=== PATIENT | female | born 1945 | race Two or more races ===

== ENCOUNTER 2023-08-21 12:45 | Outpatient (OUT) | payer MEDICARE, MEDICAID, SELFPAY ==
[2023-08-21 13:27] LABS: Bilirubin Urine NEGATIVE (NEGATIVE); Blood Urine TRACE-I (NEGATIVE); Clarity Urine CLEAR (CLEAR); Color Urine LT. YELLOW (YELLOW); Glucose Urine UA NEGATIVE (NEGATIVE); Ketones Urine NEGATIVE (NEGATIVE); Leukocyte Esterase Urine NEGATIVE (NEGATIVE); Nitrite Urine NEGATIVE (NEGATIVE); Protein Urine NEGATIVE (NEG/TRACE)
[2023-08-21 13:32] LABS: Hemoglobin 12.3 g/dL (12.0-16.0); Mean Corpuscular HGB Conc 33.2 g/dL (29.9-35.2); Mean Corpuscular Hemoglobin 32.1 pg (26.7-34.0); Mean Corpuscular Volume 96.6 fL (81.0-99.0); Platelet Count 307 10^3/uL (150-450); Red Blood Count 3.83 10^6/uL (4.20-5.40); Red Cell Distribution Width 12.8 % (11.0-15.0)
[2023-08-21 13:50] LABS: Bacteria Urine NONE SEEN #/HPF (NONE SEEN); Mucus Urine TRACE (NONE SEEN); RBC Urine 0-2 #/HPF (0-2); Squamous Epithelial Cell Urine RARE #/LPF (NONE/RARE); WBC Urine NONE SEEN #/HPF (NONE SEEN)
[2023-08-21 13:51] LABS: Cast Seen? NONE SEEN #/LPF (NONE SEEN); Crystals Seen? None Seen #/HPF (None Seen)
[2023-08-21 14:57] LABS: Creatinine Urine Random 98.94 mg/dL (20.00-300.00); Protein Creatinine Ratio Urine 0.12
[2023-08-21 15:04] LABS: Albumin Level 3.5 g/dL (3.4-5.0); Anion Gap 15.3; BUN Creatinine Ratio 15.9; Calcium 9.3 mg/dL (8.5-10.1); Carbon Dioxide 25.6 mmol/L (21.0-32.0); Chloride 101 mmol/L (98-107); Estimated GFR (African America 35 (>=60); Estimated GFR (Non-African Ame 29 (>=60); Glucose 113 mg/dL (74-106); Magnesium 2.3 mg/dL (1.8-2.4); Phosphorus 3.6 mg/dL (2.6-4.7); Potassium 3.9 mmol/L (3.5-5.1); Sodium 138 mmol/L (136-145); Uric Acid 9.2 mg/dL (2.6-6.0)
[2023-08-22 13:09] LABS: PTH, Intact 76 pg/mL (15-65)
== END 2023-08-21 12:46 | disposition home or self-care (01) ==
LOC: LAB 12:53
PROVIDERS: PCP Family Medicine; Visit Provider Internal Medicine
DX: I12.9 Hypertensive chronic kidney disease with stage 1 through stage 4 chronic kidney disease, or unspecified chronic kidney disease (principal); N18.30 Chronic kidney disease, stage 3 unspecified; E11.22 Type 2 diabetes mellitus with diabetic chronic kidney disease; E79.0 Hyperuricemia without signs of inflammatory arthritis and tophaceous disease; E55.9 Vitamin D deficiency, unspecified; R31.9 Hematuria, unspecified; N25.81 Secondary hyperparathyroidism of renal origin
CPT/HCPCS: 36415; 80069; 81001; 82306; 82570; 83735; 83970; 84156; 84550; 85027

== ENCOUNTER 2024-04-20 11:58 | Outpatient (OUT) | payer MEDICARE, MEDICAID, SELFPAY ==
--- OUTSIDE RECORDS SUMMARY | 2024-04-20 12:18 | XMS_ITS | CCD ---
Author Organization [facility] Inform ion [facility] Care Team Providers Care Service Desk Director Name Role Phone Emir, Felicitas Unavailable Trevor Bary Unavailable EMIR, FELICITAS Admitting Unavailable EMIR, FELICITAS Attending Unavailable PETZNICK, DR VEGA Primary Care Unavailable EMIR, FELICITAS Consulting Unavailable EMIR, FELICITAS Admitting Unavailable EMIR, FELICITAS Attending Unavailable PETZNICK, DR VEGA Primary Care Unavailable EMIR, FELICITAS Consulting Unavailable PETZNICK, RADHA Admitting Unavailable PETZNICK, RADHA Attending Unavailable PETZNICK, DR VEGA Primary Care Unavailable PETZNICK, DR VEGA Consulting Unavailable Petznick Ashlie ALVA Unavailable [phone] Ashlie Melgar DO Primary Care Provider Ashlie Melgar DO Unavailable ASHLIE MELGAR Attending Unavailable ASHLIE MELGAR Referring Unavailable ASHLIE MELGAR Attending Unavailable Allergies Allergy Classification Reported Allergen(s) Allergy Type Date of Onset Reaction(s) Facility (7 sources) Phenytoin Drug Allergy 02-28-2023 anaphylaxis [facility] Other (2 sources) Phenytoin Drug Allergy 02-28-2023 [facility] Medications Current Medications Medication Drug Class(es) Dates Sig (Normalized) Sig (Original) acetaminophen 325 mg oral tablet (8 sources) Start: 08-26-2023 take 1 tablet by mouth every six hours Acetaminophen (Tylenol) 325 mg tablet Active 325 MG PO Every 6 hours August 26, 2023 12:00am [id number] 200 actuat albuterol 0.09 mg/actuat metered dose inhaler (2 sources) beta2-Adrenergic Agonist Start: 02-28-2023 take 2 puff(s) by inhalation every six hours albuterol HFA 90 mcg/act inhaler Indications: Simple chronic bronchitis (CMS/HCC) Inhale 2 puffs every 6 (six) hours. 18 g 02/28/2023 Active allopurinol 100 mg oral tablet (10 sources) Xanthine Oxidase Inhibitor Start: 08-26-2023 take 100 mg by mouth once daily Allopurinol Active 100 MG PO Daily August 26, 2023 12:00am take 1 tablet by mouth once steffi y Allopurinol 100 MG TAKE 1 TABLET BY MOUTH EVERY DAY for 90 Active ASA 81 mg (5 sources) take 1 tablet by mouth once steffi y ASA 81 mg 1 tab Oral Daily for 90 day(s) Active ascorbic acid 113 mg / coppe r gluconate 0.4 mg / docosahexaenoic acid 87.5 mg / eicosapentaenoic acid 163 mg / lutein 2.5 mg / tocopherol acetate 100 unt / zeaxanthin 0.5 mg / zinc oxide 17.4 mg oral capsule (2 sources) Vitamin C aspirin 81 mg delayed release oral tablet (3 sources) Platelet Aggregation Inhibitor, Nonsteroidal Anti-inflammatory Drug Start: 08-26-2023 aspirin 81 MG EC tablet Daily 08/26/2023 Active Blood Glucose Monitoring Suppl (IceWEB) w/Device kit (2 sources) Start: 03-31-2024 Blood Glucose Monitoring Suppl (IceWEB) w/Device kit Indications: Type 2 diabetes mellitus with stage 4 chronic kidney disease, without long-term current use of insulin ([facility]) Fsbs daily 1 kit 03/31/2024 Active ergocalciferol 1.25 mg oral capsule (6 sources) Provitamin D2 Compound Start: 08-26-2023 take 1250 ug by mouth every week Ergocalciferol (Vitamin D2) Active 1250 MCG PO every week August 26, 2023 12:00am take 1 capsule by mouth every we ek Ergocalciferol 23411 UNIT 1 capsule Orally Q week for 90 day(s) Active furosemide 20 mg oral tablet (11 sources) Loop Diuretic Start: 08-26-2023 take 40 mg by mouth twice daily Furosemide Active 40 MG PO Twice daily August 26, 2023 12:00am Start: 02-28-2023 take 2 tablets by mo ut in the morning furosemide (Lasix) 20 MG tablet Indications: Chronic diastolic heart failure (CMS/HCC) Take 2 tablets (40 mg) by mouth in the morning and 2 tablets (40 mg) before bedtime. 02/28/2023 Active take 2 tablets by mo [facility] twice daily Furosemide 20 MG TAKE 2 TABLETS BY MOUTH TWICE A DAY for 90 Active take 2 tablets by mo [facility] once daily in the morning, then take 1 tablet by mouth in the evening Furosemide 20 MG TAKE 2 TABLETS BY MOUTH EVERY MORNING AND 1 TABLET IN THE EVENING for 90 Active linagliptin 5 mg oral tablet (2 sources) Dipeptidyl Peptidase 4 Inhibitor take 1 tablet by mouth every twenty-four hours lisinopril 20 mg oral tablet (8 sources) Angiotensin Converting Enzyme Inhibitor Start: 10-21-19 take 1 tablet by mouth once daily lisinopril 20 MG tablet Indications: Essential hypertension (CMS/HCC) TAKE 1 TABLET BY MOUTH EVERY DAY 90 tablet 1 10/21/2023 Active Start: 08-26-2023 take 20 mg by mouth once daily Lisinopril Active 20 MG PO Daily August 26, 2023 12:00am Start: 04-17-2016 take 1 tablet by hayley every twenty-four hours Lisinopril 20 mg 1 tablet Orally Once a day Mar, Active pravastatin sodium 40 mg oral tablet (8 sources) HMG-CoA Reductase Inhibitor Start: 10-21-2023 take 1 tablet by mouth once daily pravastatin (Pravachol) 40 MG tablet Indications: Pure hypercholesterolemia (CMS/HCC) TAKE 1 TABLET BY MOUTH EVERY DAY 90 tablet 1 10/21/2023 Active Start: 08-26-2023 take 40 mg by mouth once daily Pravastatin Active 40 MG PO Daily August 26, 2023 12:00am take 1 tablet by hayley th every twenty-four hours Pravastatin Sodium 40 MG 1 tablet Orally Once a day Active 0.25 mg, 0.5 mg dose 1.5 ml semaglutide 1.34 mg/ml pen injector (3 sources) Start: 08-26-2023 Semaglutide (O zempic) 0.25 mg or 0.5 mg(2 mg/1.5 mL) pen injector Active MG SUBCUT As Directed August 26, 2023 12:00am ) Ozempic (0.25 or 0.5 MG/DOSE) 2 MG/1.5ML as directed Subcutaneous Active Semaglutide,0.25 or 0.5MG/DOS, (Ozempic, 0.25 or 0.5 MG/DOSE,) 2 MG/3ML solution pen-injector (2 sources) Start: 06-21-2023 End: 06-20-2024 Semaglutide,0.25 or 0.5MG/DOS, (Ozempic, 0.25 or 0.5 MG/DOSE,) 2 MG/3ML solution pen-injector Indications: 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) Inject 0.5 mg under the skin every 7 (seven) days 9 mL 3 06/21/2023 06/20/2024 Active SITagliptin 25 mg oral tablet (2 sources) Dipeptidyl Peptidase 4 Inhibitor take 1 tablet by mouth every twenty-four hours Januvia 25 MG 1 tablet Orally Once a day Active Januvia Active Problems Active Problems Problem Classification Problem Date Documented Date Episodic/Chronic Cardiac dysrhythmias (6 sources) Atrial fibrillation; Translations: [Unspecified atrial fibrillation] Onset: 2 Chronic Chronic kidney disease (13 sources) Chronic kidney disease stage 3; Translations: [Chronic kidney disease, stage 3 (moderate)] Onset: 3 Resolved: 4 08-26-2023 Chronic Chronic kidney disease (9 sources) Chronic kidney disease; Translations: [Chronic kidney disease, stage III (moderate)] Onset: 1 Resolved: 2 Chronic obstructive pulmonary disease and bronchiectasis (4 sources) Simple chronic bronchitis; Translations: [Simple chronic bronchitis] Onset: 3 03-31-2024 Chronic Congestive heart failure; nonhypertensive (4 sources) Chronic diastolic heart failure; Translations: [Chronic diastolic (congestive) heart failure] Onset: 3 03-31-2024 Chronic Deficiency and other anemia (5 sources) Anemia of renal disease; Translations: [Anemia in chronic kidney disease] Chronic Deficiency and other anemia (2 sources) Anemia in chronic kidney disease; Translations: [ANEMIA IN CHRONIC KIDNEY DISEASE] Onset: 2 Resolved: 2 Chronic Diabetes mellitus with complications (20 sources) Disorder of kidney due to diabetes mellitus; Translations: [Type 2 diabetes mellitus with diabetic chronic kidney disease] Onset: 1 Resolved: 3 Chronic Disorders of lipid metabolism (8 sources) Pure hypercholesterolemia, unspecified; Translations: [Pure hypercholesterolemia] Onset: 2 Chronic Essential hypertension (4 sources) Essential hypertension; Translations: [Essential (primary) hypertension] Onset: 3 03-31-2024 Chronic Hypertension with complications and secondary hypertension (16 sources) Chronic kidney disease due to hypertension; Translations: [Hypertensive chronic kidney disease with stage 1 through stage 4 chronic kidney disease, or unspecified chronic kidney disease] Onset: 1 Resolved: 2 Chronic Nutritional deficiencies (14 sources) Vitamin D deficiency; Translations: [Vitamin D deficiency, unspecified] Onset: 1 Resolved: 2 Chronic Nutritional deficiencies (1 source) Iron deficiency Episodic Other diseases of kidney and ureters (6 sources) Secondary hyperparathyroidism; Translations: [Secondary hyperparathyroidism of renal origin] 08-26-2023 Chronic Other diseases of kidney and ureters (6 sources) Secondary hyperparathyroidism of renal origin; Translations: [Secondary hyperparathyroidism (of renal origin)] Onset: 1 Resolved: 2 Chronic Other diseases of kidney and ureters (4 sources) Hyperparathyroidism due to renal insufficiency; Translations: [Secondary hyperparathyroidism of renal origin] Onset: 3 03-31-2024 Chronic Other endocrine disorders (5 sources) Adrenal mass; Translations: [Disorder of adrenal gland, unspecified] Chronic Other hereditary and degenerative nervous system conditions (2 sources) Essential tremor; Translations: [Essential tremor] Onset: 3 02-28-2023 Chronic Other liver diseases (4 sources) Fatty (change of) liver, not elsewhere classified; Translations: [Other chronic nonalcoholic liver disease] Onset: 3 03-31-2024 Chronic Other lower respiratory disease (5 sources) Multiple nodules of lung; Translations: [Other nonspecific abnormal finding of lung field] Episodic Other nutritional; endocrine; and metabolic disorders (5 sources) Body mass index 40+ - severely obese; Translations: [Body mass index (BMI) 40.0-44.9, adult] Chronic Other nutritional; endocrine; and metabolic disorders (5 sources) Morbid obesity; Translations: [Morbid (severe) obesity due to excess calories] Chronic Other nutritional; endocrine; and metabolic disorders (6 sources) Hyperuricemia without signs of inflammatory arthritis and tophaceous disease; Translations: [Other abnormal blood chemistry] Onset: 1 Resolved: 2 Episodic Peripheral and visceral atherosclerosis (9 sources) Peripheral vascular disease, unspecified; Translations: [Intermittent claudication] Onset: 2 Resolved: 2 Chronic Unclassified (1 source) CHRN KIDNEY DISEASE STG 3 UNSP; Translations: [CHRN KIDNEY DISEASE STG 3 UNSP] Onset: 2 Past or Other Problems Problem Classification Problem Date Documented Da te Episodic/Chronic Genitourinary symptoms and ill-defined conditions (9 sources) Hematuria, unspecified; Translations: [Microscopic hematuria] Onset: 02-23-2021 Resolved: 09-14-2021 Episodic Other and unspecified benign neoplasm (2 sources) Adrenal adenoma; Translations: [Benign neoplasm of unspecified adrenal gland] Onset: 02-28-2023 02-28-2023 Episodic Other nutritional; endocrine; and metabolic disorders (2 sources) Severe obesity; Translations: [Morbid (severe) obesity due to excess calories] Onset: 02-28-2023 Resolved: 09-24-2023 09-24-2023 Chronic Other nutritional; endocrine; and metabolic disorders (3 sources) Hyperuricemia; Translations: [Hyperuricemia without signs of inflammatory arthritis and tophaceous disease] Onset: 09-24-2023 08-26-2023 Episodic Results Test Name Value Interpretation Reference Range Facility Automated epithelial cells c ount in urine sediment (number/area)on 08-21-2023 Epithelial cells Auto (Urine sed) [#/Area] RARE #/LPF NONE/RARE [facility] Automated leukocytes count i n urine sediment (number/area)on 08-21-2023 WBC Auto (Urine sed) [#/Area] 0-2 #/HPF 0-2 [facility] Automated urine specific gra vity by refractometryon 08-21-2023 Specific gravity Refractometry automated (U) [Rel density] 1.010 1.005-1.025 [facility] Bilirubin Auto test strip (U ) [Mass/Vol]on 08-21-2023 Bilirubin (U) [Mass/Vol] Negative NEGATIVE [facility] Casts typing in urine sedime nt by light microscopyon 08-21-2023 Casts LM Nom (Urine sed) NONE SEEN #/LPF NONE SEEN [facility] Erythrocyte distribution wid th Auto (RBC) [Ratio]on 08-21-2023 Erythrocyte distribution width (RBC) [Ratio] 12.8 % 11.0-15.0 [facility] Estimated glomerular filtrat ion rate (GFR) non- Americanon 08-21-2023 GFR/1.73 sq M.predicted among non-blacks MDRD (S/P/Bld) [Vol rate/Area] 29 mL/min/{1.73_m2} >=60 [facility] Hematocrit Auto (Bld) [Volum e fraction]on 08-21-2023 Hematocrit (Bld) [Volume fraction] 37.0 % 36.0-48.0 [facility] Hemoglobin [Mass/volume] in Bloodon 08-21-2023 Hemoglobin (Bld) [Mass/Vol] 12.3 g/dL 12.0-16.0 [facility] Ketones Auto test strip (U) [Mass/Vol]on 08-21-2023 Ketones (U) [Mass/Vol] Negative NEGATIVE [facility] Laboratory - Chemistry and C hemistry - challengeon 08-21-2023 Albumin [Mass/Vol] 3.5 g/dL 3.4-5.0 [facility] Calcium [Mass/Vol] 9.3 mg/dL 8.5-10.1 [facility] Chloride [Moles/Vol] 101 mmol/L 98-[address] [facility] CO2 [Moles/Vol] 25.6 mmol/L 21.0-32.0 [facility] Creatinine [Mass/Vol] 1.70 mg/dL 0.55-1.02 [facility] GFR/1.73 sq M.predicted MDRD (S/P/Bld) [Vol rate/Area] 35 mL/min/{1.73_m2} >=60 [facility] Glucose [Mass/Vol] 113 mg/dL 74-106 [facility] Magnesium [Mass/Vol] 2.3 mg/dL 1.8-2.[address] [facility] Potassium [Moles/Vol] 3.9 mmol/L 3.5-5.1 [facility] Sodium [Moles/Vol] 138 mmol/L 136-145 [facility] Urate [Mass/Vol] 9.2 mg/dL 2.6-6.0 [facility] Urea nitrogen [Mass/Vol] 27.0 mg/dL 7.0-18.0 [facility] Urea nitrogen/Creatinine [Mass ratio] 15.9 mg/mg [facility] - Urinalysison Protein (U) [Mass/Vol] 12.0 mg/dL <=11.9 [facility] Leukocytes [#/volume] correc sumit for nucleated erythrocytes in Blood by Automated counon 08-21-2023 WBC corrected for nucl RBC Auto (Bld) [#/Vol] 8.0 10 3/uL 4.0-11.0 [facility] MCH Auto (RBC) [Entitic mass ]on 08-21-2023 MCH (RBC) [Entitic mass] 32.1 pg 26.7-34.0 [facility] MCHC Auto (RBC) [Mass/Vol]on 08-21-2023 MCHC (RBC) [Mass/Vol] 33.2 g/dL 29.9-35.2 [facility] MCV Auto (RBC) [Entitic vol] on 08-21-2023 MCV (RBC) [Entitic vol] 96.6 fL 81.0-99.0 [facility] Mucus LM Ql (Urine sed)on Mucus Ql (Urine sed) TRACE NONE SEEN [facility] No Panel Informationon 08-20 25-Hydroxy Vitamin D Total 30.3 ng/mL [facility] Comment on above: <20 ng/mL Vit D defi cient20-<30 ng/mL Vit D -504 ng/mL Vit D sufficient>100 ng/mL Potential Toxicity Parathyroid Hormone (Intact) 76 pg/mL 15-65 [facility] Comment on above: [facility]formed at[facility] [address] [id number] Director: Ben Wilde PhD, Phone: [phone] Phosphorus Level 3.6 mg/dL 2.6-4.7 [facility] Urine Random Creatinine 98.94 mg/dL 20.00-300.00 [facility] Platelet mean volume Auto (B ld) [Entitic vol]on 08-21-2023 Platelet mean volume (Bld) [Entitic vol] 10.0 fL 9.5-13.5 [facility] Platelets Auto (Bld) [#/Vol] on 08-21-2023 Platelets (Bld) [#/Vol] 307 10 3/uL 150-450 [facility] Protein Auto test strip (U) [Mass/Vol]on 08-21-2023 Protein (U) [Mass/Vol] Negative NEG/TRACE [facility] RBC Auto (Bld) [#/Vol]on RBC (Bld) [#/Vol] 3.83 10 6/uL 4.20-5.40 [facility] Serum or plasma anion gap de terminationon 08-21-2023 Anion gap [Moles/Vol] 15.3 mmol/L [facility] Specific gravity Auto test s trip (U) [Rel density]on 08-21-2023 Specific gravity (U) [Rel density] CLEAR CLEAR [facility] Urine bacteria detection by automated methodon 08-21-2023 Bacteria Auto Ql (U) NONE SEEN #/HPF NONE SEEN [facility] Urine coloron 08-21-2023 Color (U) LT. YELLOW YELLOW [facility] Urine glucose measurement by test strip (mass/volume)on 08-21-2023 Glucose Test strip (U) [Mass/Vol] Negative NEGATIVE [facility] Urine hemoglobin detection b y automated test stripon 08-21-2023 Hemoglobin Auto test strip Ql (U) TRACE-I NEGATIVE [facility] Urine nitrite detection by a utomated test stripon 08-21-2023 Nitrite Auto test strip Ql (U) Negative NEGATIVE [facility] Urine protein/creatinine rat ioon 08-21-2023 Protein/Creatinine (U) [Ratio] 0.12 [facility] Urine sediment crystal ident ification by light microscopyon 08-21-2023 Crystals LM Nom (Urine sed) None Seen #/HPF None Seen [facility] Urine sediment leukocyte cou nt by microscopy (number/high power field)on 08-21-2023 WBC LM.HPF (Urine sed) [#/Area] NONE SEEN #/HPF NONE SEEN [facility] Urobilinogen Auto test strip (U) [Mass/Vol]on 08-21-2023 Urobilinogen Qn (U) 1.0 {Radha'U}/dL 0.2-1.0 [facility] pH Auto test strip (U)on pH (U) 6.0 [pH] 5.0-9.0 [facility] PTH INTACTon 03-30-2022 PTH, Intact 52 pg/mL Normal 15-65 [facility] Comment on above: Performed By: #### M G, RENAL, URIC #### [facility] [address] [place] [address] Dr. Manda Jane FERRITINon 03-29-2022 Ferritin [Mass/Vol] 33.0 ng/mL Normal 8.0-252.0 [facility] Comment on above: Performed By: #### F ERR, VITAD, FETIBC #### [facility] [address] [place] [address] Dr. Manda Jane HEMOGRAM AND PLATELon 2021 Hematocrit (Bld) [Volume fraction] 38.5 % Normal 36.0-48.0 [facility] Comment on above: Performed By: #### M G, RENAL, URIC #### [facility] [address] [address] [address] Manda Jane Hemoglobin (Bld) [Mass/Vol] 12.5 g/dL Normal 12.0-16.0 [facility] Comment on above: Performed By: #### M G, RENAL, URIC #### [facility] [address] [place] [address] Dr. Manda Jane MCH (RBC) [Entitic mass] 30.9 pg Normal 26.7-34.0 [facility] Comment on above: Performed By: #### M G, RENAL, URIC #### [facility] [address] [address] [address] Manda Jane MCHC (RBC) [Mass/Vol] 32.5 g/dL Normal 29.9-35.2 [facility] Comment on above: Performed By: #### M G, RENAL, URIC #### [facility] [address] [address] [address] Manda Jane MCV (RBC) [Entitic vol] 95.1 fL Normal 81.0-99.0 [facility] Comment on above: Performed By: #### M G, RENAL, URIC #### [facility] [address] [address] [address] Manda Jane PLT 335 103/ul Normal 150-450 [facility] Comment on above: Performed By: #### M G, RENAL, URIC #### [facility] [address] [address] [address] Manda Jane RBC 4.05 106/ul Critically low 4.20-5.[address] [facility] Comment on above: Performed By: #### M G, RENAL, URIC #### [facility] [address] [address] [address] Manda Jane WBC 8.8 103/ul Normal 4.0-11.0 [facility] Comment on above: Performed By: #### M G, RENAL, URIC #### [facility] [address] [address] [address] Manda Jane IRON AND TIBCon 03-29-2022 % SATURATION 15.9 % Normal [facility] Comment on above: Performed By: #### F ERR, VITAD, FETIBC #### [facility] [address] [address] [address] Manda Jane Iron [Mass/Vol] 54.0 ug/dL Normal 50.0-170.[address] [facility] Comment on above: Performed By: #### F ERR, VITAD, FETIBC #### [facility] [address] [address] [address] Manda Jane TIBC DIRECT 339.0 ug/dL Normal 250.0-450.0 [facility] Comment on above: Performed By: #### F ERR, VITAD, FETIBC #### [facility] [address] [address] [address] Manda Jane MAGNESIUMon 03-29-2022 Magnesium [Mass/Vol] 2.0 mg/dL Normal 1.8-2.4 [facility] Comment on above: Performed By: #### M G, RENAL, URIC #### [facility] [address] [address] [address] Manda Jane RENAL FUNCTION PANELon 03-29 Albumin [Mass/Vol] 3.6 g/dL Normal 3.4-5.0 [facility] Comment on above: Performed By: #### M G, RENAL, URIC #### [facility] [address] [address] [address] Manda Jane Calcium [Mass/Vol] 9.2 mg/dL Normal 8.5-10.1 [facility] Comment on above: Performed By: #### M G, RENAL, URIC #### [facility] [address] [address] [address] Manda Jane Chloride [Moles/Vol] 101 mmol/L Normal 98-107 [facility] Comment on above: Performed By: #### M G, RENAL, URIC #### [facility] [address] [address] [address] Manda Jane CO2 [Moles/Vol] 28.5 mmol/L Normal 21.0-32.0 [facility] Comment on above: Performed By: #### M G, RENAL, URIC #### [facility] [address] [address] [address] Manda Jane Creatinine [Mass/Vol] 1.36 mg/dL Critically high 0.55-1.02 [facility] Comment on above: Performed By: #### M G, RENAL, URIC #### [facility] [address] [address] [address] Manda Jane EGFR-AF ITALIAN 46 mL/min/1.73m2 Critically low >=60 [facility] Comment on above: Performed By: #### M G, RENAL, URIC #### [facility] [address] [address] [address] Manda Jane EGFR-NON AF ITALIAN 38 mL/min/1.73m2 Critically low >=60 [facility] Comment on above: Performed By: #### M G, RENAL, URIC #### [facility] [address] [address] [address] Manda Jane Glucose [Mass/Vol] 137 mg/dL Critically high 74-106 [facility] Comment on above: Performed By: #### M G, RENAL, URIC #### [facility] [address] [place] [address] Dr. Manda Jane Phosphate [Mass/Vol] 2.3 mg/dL Critically low 2.6-4.7 [facility] Comment on above: Performed By: #### M G, RENAL, URIC #### [facility] [address] [place] [address] Dr. Manda Jane Potassium [Moles/Vol] 4.0 mmol/L Normal 3.5-5.1 [facility] Comment on above: Performed By: #### M G, RENAL, URIC #### [facility] [address] [place] [address] Dr. Manda Jane Sodium [Moles/Vol] 135 mmol/L Critically low 136-145 [facility] Comment on above: Performed By: #### M G, RENAL, URIC #### [facility] [address] [place] [address] Dr. Manda Jane Urea nitrogen [Mass/Vol] 12.0 mg/dL Normal 7.0-18.0 [facility] Comment on above: Performed By: #### M G, RENAL, URIC #### [facility] [address] [place] [address] Dr. Manda Jane UA RANDOM W/MICROSCOPICon BACTERIA NONE SEEN Normal NONE SEEN [facility] Comment on above: Performed By: #### M G, RENAL, URIC #### [facility] [address] [place] [address] Dr. Manda Jane Bilirubin Ql (U) Negative Normal NEGATIVE [facility] Comment on above: Performed By: #### M G, RENAL, URIC #### [facility] [address] [address] [address] Manda Jane CAST NONE SEEN Normal NONE SEEN [facility] Comment on above: Performed By: #### M G, RENAL, URIC #### [facility] [address] [address] [address] Manda Jane Clarity (U) CLEAR Normal CLEAR [facility] Comment on above: Performed By: #### M G, RENAL, URIC #### [facility] [address] [address] [address] Manda Jane Color (U) LT. YELLOW Normal YELLOW [facility] Comment on above: Performed By: #### M G, RENAL, URIC #### [facility] [address] [place] [address] Dr. Manda Jane Crystals LM Nom (Urine sed) NONE SEEN Normal NONE SEEN [facility] Comment on above: Performed By: #### M G, RENAL, URIC #### [facility] [address] [place] [address] Dr. Manda Jane Epithelial cells LM Ql (Urine sed) FEW Abnormal NONE SEEN /RARE [facility] [facility] Comment on above: Performed By: #### M G, RENAL, URIC #### [facility] [address] [place] [address] Dr. Manda Jane Glucose Ql (U) Negative Normal NEGATIVE [facility] Comment on above: Performed By: #### M G, RENAL, URIC #### [facility] [address] [place] [address] Dr. Manda Jane Hemoglobin Ql (U) MODERATE Abnormal NEGATIVE [facility] Comment on above: Performed By: #### M G, RENAL, URIC #### [facility] [address] [place] [address] Dr. Manda Jane Ketones Ql (U) Negative Normal NEGATIVE [facility] Comment on above: Performed By: #### M G, RENAL, URIC #### [facility] [address] [address] [address] Manda Jane LEUKOCYTES Negative Normal NEGATIVE [facility] Comment on above: Performed By: #### M G, RENAL, URIC #### [facility] [address] [address] [address] Manda Jane MUCOUS NONE SEEN Normal NONE SEEN [facility] Comment on above: Performed By: #### M G, RENAL, URIC #### [facility] [address] [address] [address] Manda Jane Nitrite Ql (U) Negative Normal NEGATIVE [facility] Comment on above: Performed By: #### M G, RENAL, URIC #### [facility] [address] [address] [address] Manda Jane pH (U) 5.5 [pH] Normal 5-9 [facility] Comment on above: Performed By: #### M G, RENAL, URIC #### [facility] [address] [place] [address] Dr. Manda Jane RBC 5-10 Abnormal 0-2 [facility] Comment on above: Performed By: #### M G, RENAL, URIC #### [facility] [address] [address] [address] Manda Jane SPEC GRAVITY 1.025 Normal 1.005-<=1.025 [facility] Comment on above: Performed By: #### M G, RENAL, URIC #### [facility] [address] [address] [address] Manda Jane UA PROTEIN Negative Normal NEGATIVE/ TRACE [facility] Comment on above: Performed By: #### M G, RENAL, URIC #### [facility] [address] [address] [address] Manda Jane Urobilinogen Qn (U) 0.2 {Radha'U}/dL Normal 0.2 - 1. 0 [facility] Comment on above: Performed By: #### M G, RENAL, URIC #### [facility] [address] [address] [address] Manda Jane WBC NONE SEEN Normal NONE SEEN [facility] Comment on above: Performed By: #### M G, RENAL, URIC #### [facility] [address] [place] [address] Dr. Manda Jane URIC ACID SERUMon 03-29-2022 Urate [Mass/Vol] 7.0 mg/dL Critically high 2.6-6.0 [facility] Comment on above: Performed By: #### M G, RENAL, URIC #### [facility] [address] [place] [address] Dr. Manda Jane URINE T PROTEIN CREAT RATIOo n 03-29-2022 Protein (U) [Mass/Vol] 11.0 mg/dL Normal <=12.0 [facility] Comment on above: Performed By: #### U RTPCR #### [facility] [address] [place] [address] Dr. Manda Jane UR PROT CREAT RAT 0.23 Normal [facility] Comment on above: Performed By: #### U RTPCR #### [facility] [address] [place] [address] Dr. Manda Jane URINE CREAT 48.77 mg/dL Normal 20.00-300.00 [facility] Comment on above: Performed By: #### U RTPCR #### [facility] [address] [place] [address] Dr. Manda Jane VITAMIN D 25 OHon 03-29-2022 VIT D 25-OH 29.9 ng/mL Normal [facility] Comment on above: Performed By: #### F ERR, VITAD, FETIBC #### [facility] [address] [place] [address] Dr. Manda Jane VIT D RANGES SEE BELOW Normal [facility] Comment on above: Result Comment: <20 ng/mL Vit D deficient 20 - <30 ng/mL Vit D insufficient 30 - 100 ng/mL Vit D sufficient >100 ng/mL Potential Toxicity Performed By: #### F ERR, VITAD, FETIBC #### [facility] [address] [place] [address] Dr. Manda Jane LIPID PROFILEon 11-28-2021 CHOL-HDL RATIO NORM SEE BELOW Normal [facility] Comment on above: Result Comment: 3.3 - 4.4 LOW RISK 4.4 - 7.1 AVERAGE RISK 7.1 - 11.0 MODERATE RISK >11.0 HIGH RISK Performed By: #### L IPID, CMP #### [facility] [address] [address] [address] Manda Jane Cholesterol [Mass/Vol] 144 mg/dL Normal <=200 [facility] Comment on above: Performed By: #### L IPID, CMP #### [facility] [address] [address] [address] Manda Jane Cholesterol in HDL [Mass/Vol] 37 mg/dL Critically low 40-60 [facility] Comment on above: Performed By: #### L IPID, CMP #### [facility] [address] [place] [address] Dr. Manda Jane Cholesterol in LDL [Mass/Vol] 73.4 mg/dL Normal [facility] Comment on above: Performed By: #### L IPID, CMP #### [facility] [address] [place] [address] Dr. Manda Jane Cholesterol.total/Cho lesterol in HDL [Mass ratio] 3.9 {ratio} Normal [facility] Comment on above: Performed By: #### L IPID, CMP #### [facility] [address] [place] [address] Dr. Manda Jane HDL NORMAL > or = 60 mg/dl - LOW CARDIOVASCULAR RISK <40 mg/dl - HIGH CARDIOVASCULAR RISK Normal [facility] Comment on above: Performed By: #### L IPID, CMP #### [facility] [address] [place] [address] Dr. Manda Jane LDL CALC NORMAL SEE BELOW Normal [facility] Comment on above: Result Comment: <100 mg/dl OPTIMAL 100 - 129 mg/dl NEAR OR ABOVE OPTIMAL 130 - 159 mg/dl BORDERLINE HIGH 160 - 189 mg/dl HIGH >190 mg/dl VERY HIGH Performed By: #### L IPID, CMP #### [facility] [address] [place] [address] Dr. Manda Jane Triglyceride [Mass/Vol] 168 mg/dL Critically high <=150 [facility] Comment on above: Performed By: #### L IPID, CMP #### [facility] [address] [address] [address] Manda Jane VLDL CALC 33.6 mg/dL Normal [facility] Comment on above: Performed By: #### L IPID, CMP #### [facility] [address] [place] [address] Dr. Manda Jane PROF 14(COMP METB)on 022 Albumin [Mass/Vol] 3.6 g/dL Normal 3.4-5.0 [facility] Comment on above: Performed By: #### L IPID, CMP #### [facility] [address] [place] [address] Dr. Manda Jane Albumin/Globulin [Mass ratio] 1.1 {ratio} Normal [facility] Comment on above: Performed By: #### L IPID, CMP #### [facility] [address] [place] [address] Dr. Manda Jane ALP [Catalytic activity/Vol] 82 U/L Normal 46-116 [facility] Comment on above: Performed By: #### L IPID, CMP #### [facility] [address] [place] [address] Dr. Manda Jane ALT [Catalytic activity/Vol] 8 U/L Critically low 14-59 [facility] Comment on above: Performed By: #### L IPID, CMP #### [facility] [address] [place] [address] Dr. Manda Jane Anion gap [Moles/Vol] 16.2 mmol/L Normal [facility] Comment on above: Performed By: #### L IPID, CMP #### [facility] [address] [place] [address] Dr. Manda Jane AST [Catalytic activity/Vol] 7 U/L Critically low 15-37 [facility] Comment on above: Performed By: #### L IPID, CMP #### [facility] [address] [place] [address] Dr. Manda Jane Bilirubin [Mass/Vol] 0.3 mg/dL Normal 0.2-1.0 [facility] Comment on above: Performed By: #### L IPID, CMP #### [facility] [address] [place] [address] Dr. Manda Jane Calcium [Mass/Vol] 8.9 mg/dL Normal 8.5-10.1 [facility] Comment on above: Performed By: #### L IPID, CMP #### [facility] [address] [place] [address] Dr. Manda Jane Chloride [Moles/Vol] 103 mmol/L Normal 98-107 [facility] Comment on above: Performed By: #### L IPID, CMP #### [facility] [address] [place] [address] Dr. Manda Jane CO2 [Moles/Vol] 26.0 mmol/L Normal 21.0-32.0 [facility] Comment on above: Performed By: #### L IPID, CMP #### [facility] [address] [place] [address] Dr. Manda Jane Creatinine [Mass/Vol] 1.79 mg/dL Critically high 0.55-1.02 [facility] Comment on above: Performed By: #### L IPID, CMP #### [facility] [address] [place] [address] Dr. Manda Jane EGFR-AF ITALIAN 33 mL/min/1.73m2 Critically low >=60 [facility] Comment on above: Performed By: #### L IPID, CMP #### [facility] [address] [place] [address] Dr. Manda Jane EGFR-NON AF ITALIAN 28 mL/min/1.73m2 Critically low >=60 [facility] Comment on above: Performed By: #### L IPID, CMP #### [facility] [address] [place] [address] Dr. Manda Jane Globulin (S) [Mass/Vol] 3.3 g/dL Normal [facility] Comment on above: Performed By: #### L IPID, CMP #### [facility] [address] [place] [address] Dr. Manda Jane Glucose [Mass/Vol] 175 mg/dL Critically high 74-106 [facility] Comment on above: Performed By: #### L IPID, CMP #### [facility] [address] [address] [address] Manda Jane Potassium [Moles/Vol] 4.2 mmol/L Normal 3.5-5.1 [facility] Comment on above: Performed By: #### L IPID, CMP #### [facility] [address] [address] [address] Manda Jane Protein [Mass/Vol] 6.9 g/dL Normal 6.4-8.2 [facility] Comment on above: Performed By: #### L IPID, CMP #### [facility] [address] [address] [address] Manda Jane Sodium [Moles/Vol] 141 mmol/L Normal 136-145 [facility] Comment on above: Performed By: #### L IPID, CMP #### [facility] [address] [address] [address] Manda Jane Urea nitrogen [Mass/Vol] 20.0 mg/dL Critically high 7.0-18.0 [facility] Comment on above: Performed By: #### L IPID, CMP #### [facility] [address] [place] [address] Dr. Manda Jane Urea nitrogen/Creatinine [Mass ratio] 11.2 mg/mg Normal [facility] Comment on above: Performed By: #### L IPID, CMP #### [facility] [address] [place] [address] Dr. Manda Jane PTH INTACTon 09-08-2021 PTH, Intact 55 pg/mL Normal 15-65 [facility] Comment on above: Performed By: #### M G, RENAL, URIC #### [facility] [address] [place] [address] Dr. Manda Jane HEMOGRAM AND PLATELon 2021 Hematocrit (Bld) [Volume fraction] 35.0 % Critically low 36.0-48.0 [facility] Comment on above: Performed By: #### M G, RENAL, URIC #### [facility] [address] [place] [address] Dr. Manda Jane Hemoglobin (Bld) [Mass/Vol] 11.5 g/dL Critically low 12.0-16.0 [facility] Comment on above: Performed By: #### M G, RENAL, URIC #### [facility] [address] [place] [address] Dr. Manda Jane MCH (RBC) [Entitic mass] 31.3 pg Normal 26.7-34.0 [facility] Comment on above: Performed By: #### M G, RENAL, URIC #### [facility] [address] [place] [address] Dr. Manda Jane MCHC (RBC) [Mass/Vol] 32.9 g/dL Normal 29.9-35.2 [facility] Comment on above: Performed By: #### M G, RENAL, URIC #### [facility] [address] [place] [address] Dr. Manda Jane MCV (RBC) [Entitic vol] 95.1 fL Normal 81.0-99.0 [facility] Comment on above: Performed By: #### M G, RENAL, URIC #### [facility] [address] [place] [address] Dr. Manda Jane PLT 269 103/ul Normal 150-450 [facility] Comment on above: Performed By: #### M G, RENAL, URIC #### [facility] [address] [place] [address] Dr. Manda Jane RBC 3.68 106/ul Critically low 4.20-5.[address] [facility] Comment on above: Performed By: #### M G, RENAL, URIC #### [facility] [address] [place] [address] Dr. Manda Jane WBC 8.2 103/ul Normal 4.0-11.0 [facility] Comment on above: Performed By: #### M G, RENAL, URIC #### [facility] [address] [place] [address] Dr. Manda Jane MAGNESIUMon 09-07-2021 Magnesium [Mass/Vol] 2.1 mg/dL Normal 1.8-2.4 [facility] Comment on above: Performed By: #### M G, RENAL, URIC #### [facility] [address] [address] [address] Manda Jane RENAL FUNCTION PANELon 09-07 Albumin [Mass/Vol] 3.5 g/dL Normal 3.4-5.0 [facility] Comment on above: Performed By: #### M G, RENAL, URIC #### [facility] [address] [address] [address] Manda Jane Calcium [Mass/Vol] 8.9 mg/dL Normal 8.5-10.1 [facility] Comment on above: Performed By: #### M G, RENAL, URIC #### [facility] [address] [address] [address] Manda Jane Chloride [Moles/Vol] 100 mmol/L Normal 98-107 [facility] Comment on above: Performed By: #### M G, RENAL, URIC #### [facility] [address] [address] [address] Manda Jane CO2 [Moles/Vol] 25.9 mmol/L Normal 21.0-32.0 [facility] Comment on above: Performed By: #### M G, RENAL, URIC #### [facility] [address] [address] [address] Manda Jane Creatinine [Mass/Vol] 1.57 mg/dL Critically high 0.55-1.02 [facility] Comment on above: Performed By: #### M G, RENAL, URIC #### [facility] [address] [address] [address] Manda Jane EGFR-AF ITALIAN 39 mL/min/1.73m2 Critically low >=60 [facility] Comment on above: Performed By: #### M G, RENAL, URIC #### [facility] [address] [address] [address] Manda Jane EGFR-NON AF ITALIAN 32 mL/min/1.73m2 Critically low >=60 [facility] Comment on above: Performed By: #### M G, RENAL, URIC #### [facility] [address] [place] [address] Dr. Manda Jane Glucose [Mass/Vol] 183 mg/dL Critically high 74-106 [facility] Comment on above: Performed By: #### M G, RENAL, URIC #### [facility] [address] [place] [address] Dr. Manda Jane Phosphate [Mass/Vol] 2.9 mg/dL Normal 2.6-4.7 [facility] Comment on above: Performed By: #### M G, RENAL, URIC #### [facility] [address] [place] [address] Dr. Manda Jane Potassium [Moles/Vol] 4.4 mmol/L Normal 3.5-5.1 [facility] Comment on above: Performed By: #### M G, RENAL, URIC #### [facility] [address] [place] [address] Dr. Manda Jane Sodium [Moles/Vol] 136 mmol/L Normal 136-145 [facility] Comment on above: Performed By: #### M G, RENAL, URIC #### [facility] [address] [place] [address] Dr. Manda Jane Urea nitrogen [Mass/Vol] 25.0 mg/dL Critically high 7.0-18.0 [facility] Comment on above: Performed By: #### M G, RENAL, URIC #### [facility] [address] [place] [address] Dr. Manda Jane UA RANDOM W/MICROSCOPICon BACTERIA NONE SEEN Normal NONE SEEN [facility] Comment on above: Performed By: #### M G, RENAL, URIC #### [facility] [address] [place] [address] Dr. Manda Jane Bilirubin Ql (U) Negative Normal NEGATIVE [facility] Comment on above: Performed By: #### M G, RENAL, URIC #### [facility] [address] [place] [address] Dr. Manda Jane CAST NONE SEEN Normal NONE SEEN [facility] Comment on above: Performed By: #### M G, RENAL, URIC #### [facility] [address] [address] [address] Manda Jane Clarity (U) CLEAR Normal CLEAR [facility] Comment on above: Performed By: #### M G, RENAL, URIC #### [facility] [address] [address] [address] Manda Jane Color (U) YELLOW Normal YELLOW [facility] Comment on above: Performed By: #### M G, RENAL, URIC #### [facility] [address] [address] [address] Manda Jane Crystals LM Nom (Urine sed) NONE SEEN Normal NONE SEEN [facility] Comment on above: Performed By: #### M G, RENAL, URIC #### [facility] [address] [place] [address] Dr. Manda Jane Epithelial cells LM Ql (Urine sed) MODERATE Abnormal NONE SEEN /RARE [facility] Comment on above: Performed By: #### M G, RENAL, URIC #### [facility] [address] [place] [address] Dr. Manda Jane Glucose Ql (U) >1000 Abnormal NEGATIVE [facility] Comment on above: Performed By: #### M G, RENAL, URIC #### [facility] [address] [place] [address] Dr. Manda Jane Hemoglobin Ql (U) SMALL Abnormal NEGATIVE [facility] Comment on above: Performed By: #### M G, RENAL, URIC #### [facility] [address] [address] [address] Manda Jane Ketones Ql (U) Negative Normal NEGATIVE [facility] Comment on above: Performed By: #### M G, RENAL, URIC #### [facility] [address] [place] [address] Dr. Manda Jane LEUKOCYTES Negative Normal NEGATIVE [facility] Comment on above: Performed By: #### M G, RENAL, URIC #### [facility] [address] [place] [address] Dr. Manda Jane MUCOUS NONE SEEN Normal NONE SEEN [facility] Comment on above: Performed By: #### M G, RENAL, URIC #### [facility] [address] [address] [address] Manda Jane Nitrite Ql (U) Negative Normal NEGATIVE [facility] Comment on above: Performed By: #### M G, RENAL, URIC #### [facility] [address] [address] [address] Manda Jane pH (U) 6.0 [pH] Normal 5-9 [facility] Comment on above: Performed By: #### M G, RENAL, URIC #### [facility] [address] [address] [address] Manda Jane RBC 2-5 Abnormal 0-2 [facility] Comment on above: Performed By: #### M G, RENAL, URIC #### [facility] [address] [address] [address] Manda Jane SPEC GRAVITY 1.015 Normal 1.005-<=1.025 [facility] Comment on above: Performed By: #### M G, RENAL, URIC #### [facility] [address] [address] [address] Manda Jane UA PROTEIN Negative Normal NEGATIVE/ TRACE [facility] Comment on above: Performed By: #### M G, RENAL, URIC #### [facility] [address] [address] [address] Manda Jane Urobilinogen Qn (U) 0.2 {Radha'U}/dL Normal 0.2 - 1. 0 [facility] Comment on above: Performed By: #### M G, RENAL, URIC #### [facility] [address] [address] [address] Manda Jane WBC NONE SEEN Normal NONE SEEN [facility] Comment on above: Performed By: #### M G, RENAL, URIC #### [facility] [address] [address] [address] Manda Jane URIC ACID SERUMon 09-07-2021 Urate [Mass/Vol] 7.4 mg/dL Critically high 2.6-6.0 [facility] Comment on above: Performed By: #### M G, RENAL, URIC #### [facility] [address] [address] [address] Manda Jane URINE T PROTEIN CREAT RATIOo n 09-07-2021 Protein (U) [Mass/Vol] 18.5 mg/dL Critically high <=12.0 [facility] Comment on above: Performed By: #### M G, RENAL, URIC #### [facility] [address] [address] [address] Manda Jane UR PROT CREAT RAT 0.19 Normal [facility] Comment on above: Performed By: #### M G, RENAL, URIC #### [facility] [address] [address] [address] Manda Jane URINE CREAT 99.90 mg/dL Normal 20.00-300.00 [facility] Comment on above: Performed By: #### M G, RENAL, URIC #### [facility] [address] [address] [address] Manda Jane VITAMIN D 25 OHon 09-07-2021 VIT D 25-OH 47.1 ng/mL Normal [facility] Comment on above: Performed By: #### V ITAD #### [facility] [address] [place] [address] Dr. Manda Jane VIT D RANGES SEE BELOW Normal [facility] Comment on above: Result Comment: <20 ng/mL Vit D deficient 20 - <30 ng/mL Vit D insufficient 30 - 100 ng/mL Vit D sufficient >100 ng/mL Potential Toxicity Performed By: #### V ITAD #### [facility] [address] [place] [address] Dr. Manda Jane [facility] echo transthoracicon [facility] echo transthoracic [facility] [place] [address] Echocardiogram Signed Patient: Jessica Sam MR#: [id number] 72 : 1945 Acct:[id number] Age/Sex: 75 / F ADM Date: 02/28/21 Loc: Room: Type: [facility] Attending Dr: Ashlie Melgar DO Ordering Provider: Ashlie Melgar DO Date of Service: 02/28/21 [facility] echo transthoracic: Shortness of Breath Copies to: DO Akiko Brito MD, [facility] Weight: 220 lb Performed By: Marlys Levi LUCY BSA: 2.0 m2 BP: 154/82 mmHg HR: 74 Reason For Study: Shortness of Breath History: Smoker. HTN. HLD. DM. Interpretation Summary The left ventricular size, thickness and function are normal The left ventricular wall motion is normal. There is trace mitral regurgitation. Ejection Fraction = 65-70%. A variety of Doppler measurements indicate impaired left ventricular relaxation, which is associated with grade I/IV or mild diastolic dysfunction. Compared to the prior echo report on 11/08/10, there is no significant change. Procedure/Quality: A two-dimensional transthoracic echocardiogram with color flow and Doppler was performed. The study was technically good in quality. Compared to the prior echo report on 11/08/10, there is no significant change. Left Ventricle: The left ventricular size, thickness and function are normal. Ejection Fraction = 65-70%. A variety of Doppler measurements indicate impaired left ventricular relaxation, which is associated with grade I/IV or mild diastolic dysfunction. The left ventricular wall motion is normal. Left Atrium: The left atrium appears normal in size. The atrial septum appears normal. Right Atrium: The right atrium appears normal in size. Right Ventricle: The right ventricular size, thickness and function are normal. Aortic Valve: The aortic valve is normal in structure and function. No aortic regurgitation is present. Mitral Valve: The mitral valve is normal in structure and function. There is trace mitral regurgitation. Tricuspid Valve: The tricuspid valve is normal in structure and function. No tricuspid regurgitation. Pulmonic Valve: The pulmonic valve is normal in structure and function. Arteries: The aortic root is normal size. Pericardium/Pleura: No pericardial effusion seen. There is no pleural effusion. IVC/Hepatic Viens: The inferior vena cava is normal in size, with a normal collapsibility index. Miscellaneous: No thrombus, vegetation or mass is seen. Measurements with Normals IVSd: 1.0 cm (0.7-1.1 cm)LVIDd: 3.8 cm (3.7-5.4 cm) LVPWd: 1.0 cm (0.7-1.1 cm)LVIDs: 2.6 cm (2.3-3.6 cm) LA dimension: 3.9 cm (2.3-4.0 cm)Ao root diam: 3.3 cm(2.0-3.6 cm) asc Aorta Diam: 3.3 cm(2.1-3.4cm) Doppler with Normals RVSP(TR): 12.2 mmHg (18-35mmHg) LV V1 max: 157.0 cm/sec (0.7-1.7m/s)MV E max jagdeep: 84.2 cm/sec(0.8-1.3m/s) MV A max jagdeep: 101.7 cm/sec(0.0-0.0m/s) MV E/A: 0.83 (<1.5) MMode/2D Measurements Calculations TAPSE: 1.8 cm FS: 31.6 % Ao root area: LVOT diam: 2.0 cm RV S Jagdeep: EDV(Teich): 8.7 cm2 LVOT area: 3.1 cm2 13.2 cm/sec 60.5 ml ESV(Teich): 24.0 ml EF(Teich): 60.3 % __ LVLd ap4: 7.8 cm SV(MOD-sp4): LAV(MOD-sp4): LA A2 area: 16.6 cm2 EDV(MOD-sp4): 30.7 ml 39.8 ml 53.9 ml LAV(MOD-sp2): LA A4 area: 15.9 cm2 LVLs ap4: 6.1 cm 40.4 ml LA length (vol): ESV(MOD-sp4): 4.9 cm 23.2 ml LA vol: 45.7 ml EF(MOD-sp4): 57.0 % LA vol index: 23.0 ml/m2 Doppler Measurements Calculations MV dec time: MV max PG: E/E' lat: 11.4 MV dec slope: 0.28 sec 50.0 mmHg E/E' med: 11.2 299.0 cm/sec2 __ Ao V2 max: LV V1 max PG: MR max jagdeep: TV max P.0 mmHg 149.4 cm/sec 9.9 mmHg 353.2 cm/sec Ao max PG: LV V1 mean PG: MR max P.9 mmHg 7.4 mmHg 49.9 mmHg Ao mean PG: LV V1 mean: 5.5 mmHg 131.6 cm/sec Ao V2 mean: LV V1 VTI: 32.9 cm 113.7 cm/sec Ao V2 VTI: 30.8 cm TAMARA(I,D): 3.3 cm2 TAMARA(V,D): 3.2 cm2 __ TR max jagdeep: 152.0 cm/sec TR max P.2 mmHg RAP systole: 3.0 mmHg Transcribed By: HARSH 02/28/21849 Dictated By: Akiko Laws MD, [facility] 02/28/2141 Signed By: 02/28/2150 [facility] US art pvr/post Oskar 021 US art pvr/[place] [address] Ultrasound Report Signed Patient: Jessica Sam MR#: [id number] 72 : 1945 Acct:[id number] Age/Sex: 75 / F ADM Date: 02/28/21 Loc: Room: Type: [facility] Attending Dr: Ashlie Melgar DO Ordering Provider: Ashlie Melgar DO Date of Service: 02/28/21 US/US art pvr/post LE: i73.9 Copies to: Ashlie Melgar DO LOWER EXTREMITY SEGMENTAL ARTERIAL DOPSCAN (PVR) INDICATION: PROCEDURE: Right arm blood pressure is 146 , left is 149 . Pressures throughout the right leg are cno at the high thigh, 163 at the low thigh, 131 at the calf, 132 at the ankle using the posterior tibial artery and 130 at the ankle using the dorsalis pedis artery with ankle-brachial index of 0.89 . Pressures throughout the left leg are 160 at the high thigh, 129 at the low thigh, 128 at the calf, 123 at the ankle using the posterior tibial artery and 127 ,127 ,146 ,143 ,139 ,125 ,124 at the ankle using the dorsalis pedis artery with ankle-brachial index of 0.83 . 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 THE PATIENT IS MOST LIKELY TO HAVE diffuse DISEASE OF THE bilateral LOWER EXTREMITY. With exercise, there was no significant change in JHON. Impression dictated by: Radha Flores MD02/28/2021 2:46 PM Dictation Location[facility] Tech: Mirian Shine Transcribed By: LEIF 02/28/21 1446 Dictated By: Radha Flores MD 02/28/21 1444 Signed By: 02/28/[address] [facility] Vital Signs Date Time Vital Sign Value Performing Clinician Facility 03-31-2024 10:30-0500 Body height 154.3 cm [employer] Work Phone: [facility] [employer] 03-31-2024 10:30-0500 Body mass index (BMI) [Ratio] 35.53 kg/m2 [employer] [facility] 03-31-2024 10:30-0500 Body temperature 96.8 [degF] [employer] Work Phone[facility] 03-31-2024 10:30-0500 Body weight 84.6 kg [employer] [facility] 03-31-2024 10:30-0500 Diastolic blood pressure 68 mm[Hg] [employer] Work Phone: [facility] [employer] 03-31-2024 10:30-0500 Heart rate 99 /min [employer] Work Phone: [facility] [employer] 03-31-2024 10:30-0500 SaO2% (BldA) [Mass fraction] 96 % Ashlie Petjulianick DO Work Phone: [facility] 03-31-2024 10:30-0500 Systolic blood pressure 138 mm[Hg] Ashlie Petznick DO Work Phone: [facility] 08-26-2023 13:59-0400 Body height 157.48 cm [facility] 08-26-2023 13:59-0400 Body mass index (BMI) [Ratio] 32.5 kg/m2 [facility] 08-26-2023 13:59-0400 Body temperature 97.1 [degF] [facility] 08-26-2023 13:59-0400 Body weight 80.85 kg [facility] 08-26-2023 13:59-0400 Diastolic blood pressure 73 mm[Hg] [facility] 08-26-2023 13:59-0400 Heart rate 90 /min [facility] 08-26-2023 13:59-0400 Respiratory rate 18 /min [facility] 08-26-2023 13:59-0400 SaO2% (BldA) [Mass fraction] 98 % [facility] 08-26-2023 13:59-0400 Systolic blood pressure 115 mm[Hg] [facility] 11-08-2022 11:40-0400 Body height 157.48 cm Felicitas Emir Other [employer] [facility] [employer] Other 11-08-2022 11:40-0400 Body mass index (BMI) [Ratio] 35.88 kg/m2 Felicitas Emir Other [employer] Other 11-08-2022 11:40-0400 Body temperature 97.2 [degF] Felicitas Emir Other [employer] Other 11-08-2022 11:40-0400 Body weight 89 kg Felicitas Emir Other [employer] Other 11-08-2022 11:40-0400 Diastolic blood pressure 61 mm[Hg] Felicitas Emir Other [employer] Other 11-08-2022 11:40-0400 Respiratory rate 20 /min Felicitas Emir Other [employer] Other 11-08-2022 11:40-0400 SaO2% (BldA) [Mass fraction] 95 % Felicitas Emir Other [employer] Other 11-08-2022 11:40-0400 Systolic blood pressure 112 mm[Hg] Felicitas Emir Other [employer] Other 04-05-2022 14:20-0500 Body height 157.48 cm Felicitas Emir Other [employer] Other 04-05-2022 14:20-0500 Body mass index (BMI) [Ratio] 39.83 kg/m2 Felicitas Emir Other [employer] Other 04-05-2022 14:20-0500 Body temperature 97.2 [degF] Felicitas Emir Other [employer] Other 04-05-2022 14:20-0500 Body weight 98.79 kg Felicitas Emir Other [employer] Other 04-05-2022 14:20-0500 Diastolic blood pressure 74 mm[Hg] Felicitas Emir Other [employer] Other 04-05-2022 14:20-0500 Respiratory rate 20 /min Felicitas Emir Other [employer] Other 04-05-2022 14:20-0500 SaO2% (BldA) [Mass fraction] 97 % Felicitas Emir Other [employer] Other 04-05-2022 14:20-0500 Systolic blood pressure 112 mm[Hg] Felicitas Emir Other [employer] Other 09-14-2021 12:20-0400 Body height 157.48 cm Felicitas Emir Other [employer] Other 09-14-2021 12:20-0400 Body mass index (BMI) [Ratio] 41.84 kg/m2 Felicitas Emir Other [employer] Other 09-14-2021 12:20-0400 Body temperature 97.2 [degF] Felicitas Emir Other [employer] Other 09-14-2021 12:20-0400 Body weight 103.78 kg Felicitas Emir Other [employer] Other 09-14-2021 12:20-0400 Diastolic blood pressure 72 mm[Hg] Felicitas Emir Other [employer] Other 09-14-2021 12:20-0400 Respiratory rate 20 /min Felicitas Emir Other [employer] Other 09-14-2021 12:20-0400 SaO2% (BldA) [Mass fraction] 95 % Felicitas Emir Other [employer] Other 09-14-2021 12:20-0400 Systolic blood pressure 110 mm[Hg] Felicitas Emir Other [employer] Other 06-06-2021 13:30-0500 Body height 157.48 cm Trevor Buehrer Other [employer] Other 06-06-2021 13:30-0500 Body mass index (BMI) [Ratio] 40.23 kg/m2 Trevor Buehrer Other [employer] Other 06-06-2021 13:30-0500 Body temperature 96.9 [degF] Trevor Buehrer Other [employer] Other 06-06-2021 13:30-0500 Body weight 99.79 kg Trevor Buehrer Other [employer] Other 06-06-2021 13:30-0500 Diastolic blood pressure 70 mm[Hg] Trevor Buehrer Other [employer] Other 06-06-2021 13:30-0500 SaO2% (BldA) [Mass fraction] 97 % Trevor Buehrer Other [employer] Other 06-06-2021 13:30-0500 Systolic blood pressure 110 mm[Hg] Trevor Buehrer Other [employer] Other 02-23-2021 12:40-0400 Body height 157.48 cm Felicitas Emir Other [employer] Other 02-23-2021 12:40-0400 Body mass index (BMI) [Ratio] 40.12 kg/m2 Felicitas Emir Other [employer] Other 02-23-2021 12:40-0400 Body temperature 96.8 [degF] Felicitas Emir Other [employer] Other 02-23-2021 12:40-0400 Body weight 99.52 kg Felicitas Emir Other [employer] Other 02-23-2021 12:40-0400 Diastolic blood pressure 74 mm[Hg] Felicitas Emir Other [employer] Other 02-23-2021 12:40-0400 Respiratory rate 20 /min Felicitas Emir Other [employer] Other 02-23-2021 12:40-0400 SaO2% (BldA) [Mass fraction] 92 % Felicitas Emir Other [employer] Other 02-23-2021 12:40-0400 Systolic blood pressure 120 mm[Hg] Felicitas Emir Other [employer] Other Encounters Encounter Date Encounter Type Care Provider Facility Start: 03-31-2024 End: 03-31-2024 ambulatory ASHLIE MELGAR Not Available Start: 03-31-2024 End: 03-31-2024 Patient encounter procedure Ashlie Melgar DO Work Phone: [facility] [place] [address] Comment on above: Medicare annual well ness visit, subsequent (Primary Dx); Type 2 diabetes mellitus with stage 4 chronic kidney disease, without long-term current use of insulin (CMS/HCC); Simple chronic bronchitis (CMS/HCC); Chronic diastolic heart failure (CMS/HCC); Essential hypertension (CMS/HCC); NAFLD (nonalcoholic fatty liver disease); CKD (chronic kidney disease) stage 4, GFR 15-29 ml/min ([facility]); Claudication ([facility]); Secondary hyperparathyroidism of renal origin ([facility]); Type 2 diabetes mellitus with both eyes affected by mild nonproliferative retinopathy without macular edema, without long-term current use of insulin ([facility]); Pure hypercholesterolemia ([facility]) Start: 09-24-2023 End: 09-24-2023 ambulatory SAHLIE NIEVESYAZAN Not Available Start: 08-26-2023 End: 08-26-2023 ambulatory [facility] Work Phone: Start: 08-26-2023 End: 08-26-[address] [facility] Work Phone: Start: 08-21-2023 Non-patient / Non-visit [facility] Work Phone: Start: 11-08-2022 End: 11-08-2022 ambulatory Felicitas Emir Other [employer] Other Start: 11-08-2022 Office outpatient vi sit 25 minutes Felicitas Emir [facility] [place] Start: 04-05-2022 End: 04-05-2022 ambulatory Felicitas Emir Other [employer] Other Start: 04-05-2022 Office outpatient vi sit 15 minutes Felicitas Emir [facility] Start: 03-29-2022 End: 03-30-2022 ambulatory FELICITAS EMIR Facility:[facility] Start: 11-28-2021 End: 11-29-2021 ambulatory RADHA NIEVESJULIANVEENA Facility:[facility] Start: 09-14-2021 End: 09-14-2021 ambulatory Felicitas Emir Other [employer] Other Start: 09-14-2021 Office outpatient vi sit 25 minutes Felicitas Emir [facility] [place] Start: 09-07-2021 End: 09-08-2021 ambulatory FELICITAS EMIR Facility:[facility] Start: 06-06-2021 End: 06-06-2021 ambulatory Trevor Bray Other [facility] Other Start: 06-06-2021 Office outpatient ne w 45 minutes Trevorfam Cidrer [facility] Start: 02-23-2021 End: 02-23-2021 ambulatory Felicitas Emir Other [employer] Other Start: 02-23-2021 Office outpatient vi sit 25 minutes Felicitas Emir [facility] [place] Procedures Date Procedure Procedure Detail Performing Clinician Start: 02-28-2023 H/O: hysterectomy History of hystere ctomy Ashlie Melgar DO Work Phone: Plan of Treatment Date Care Activity Detail Author Start: 03-31-2025 Medicare Annual Well ness (AWV) Medicare Annual Wellness (AWV) [facility] Start: 10-19-2024 Influenza vaccination Influenza Vacc ine (#1) [facility] Comment on above: Postponed from 12/21 (Patient Refused) Start: 07-30-2024 Glaucoma screening Diabetes: R etinopathy Screening [facility] Start: 12-25-2023 Hemoglobin A1c measurement Diabetes: Hemoglobin A1C [facility] Start: 03-29-2023 Urine screening for protein Diabetes: Urine Protein Screening [facility] CBC W Auto Different ial panel - Blood CBC and differential Lab Routine Type 2 diabetes mellitus with stage 4 chronic kidney disease, without long-term current use of insulin ([facility]) Ordered: 03/31/2024 [facility] Comment on above: Ordered: 03/31/2024 Comprehensive metabo lic 2000 panel - Serum or Plasma Comprehensive metabolic panel Lab Routine Type 2 diabetes mellitus with stage 4 chronic kidney disease, without long-term current use of insulin ([facility]) Ordered: 03/31/2024 [facility] Work Phone: Comment on above: Ordered: 03/31/2024 Lipid 1996 panel - S cayla or Plasma Lipid panel Lab Routine Type 2 diabetes mellitus with stage 4 chronic kidney disease, without long-term current use of insulin ([facility]) Ordered: 03/31/2024 [facility] Comment on above: Ordered: 03/31/2024 Microalbumin/Creatin ine panel in random Urine Microalbumin / creatinine urine ratio Lab Routine Type 2 diabetes mellitus with stage 4 chronic kidney disease, without long-term current use of insulin ([facility]) Ordered: 03/31/2024 [facility] Comment on above: Ordered: 03/31/2024 Renal function 2000 panel - Serum or Plasma [facility] Immunizations Immunization Date Immunization Notes Care Provider Shayla ovalle 12-14-2014 pneumococcal polysaccharide vaccine, 23 valent Ashlie Petznick DO Work Phone: [facility] 04-22-2010 pneumococcal polysaccharide vaccine, 23 valent Ashlie Petznick DO Work Phone: [facility] Payers Date Payer Category Payer Medicare (Managed Care) [facility] [id number] 2023 Medicare [id number] 2017 Medicaid [place]ICAID [place] [id number] 1959 Medicaid [id number] 1959 Medicare [id number] 1945 Unknown [id number] 1945 Unknown [id number] 1945 Unknown [id number] 1945 Unknown [id number] 1945 Unknown [id number] Self-pay Self Pay [id number] Social History Date Type Detail Facility Unknown if ever smoked [facility] Other Start: 09-03-2023 End: 03-31-2024 Sex Assigned At [facility] Start: 08-26-2023 Tobacco smoking stat [facility] Smoker (finding) [facility] Start: 1945 Sex Assigned At Female F [facility] Start: [facility] Start: 04-22-1965 History of tobacco use Cigarette Smo ker [facility] Start: 03-31-2024 Tobacco use and exposure Smokeless tobacco non-user [facility] Start: 03-31-2024 Alcoholic beverage intake Ex-drinker (finding) [facility] Start: 09-03-2023 End: 03-31-2024 History of Social function [facility] How often to you hav e a drink containing alcohol? Never [facility] How many standard drinks containing alcohol do you have on a typical day? Patient does not drink [facility] Start: 1945 Sex assigned at Not on file [facility] Medical Equipment Procedure Code Equipment Code Equipment Origin al Text Equipment Identifier Dates [id number] Start: 03-31-2024 Fsbs daily [id number] Start: 03-31-2024 History of Present illness Narrative 03-31-2024 Ashlie Nievesjulianveena, DO - 03/31/2024 12:42 PM Lizzy Melgar, DO - 03/31/2024 12:42 PM Lizzy Melgar, DO - 03/31/2024 12:41 PM Lizzy Melgar, DO - 03/31/2024 12:41 PM EST Note Date & Type Note Facility 03-31-2024 History of Presen t illness Narrative Associated Problem(s): Pure hypercholesterolemia (CMS/HCC) Prior to the patient's appointment today, I reviewed past laboratory testing and any diagnostics as it relates in the management of their cholesterol. Encouraged to stay on their statin medication daily and continue with a low cholesterol (mediterranean style) diet. Associated Problem(s): Type 2 diabetes mellitus with stage 4 chronic kidney disease, without long-term current use of insulin (CMS/HCC) During the appointment today all pertinent labs, imaging, health maintenance, and glucose readings were reviewed. Encouraged to check blood glucose throughout the day with some fasting and some PP readings. They are to bring their glucose meter/cgm in to all appointments. All of the patients questions, treatment options, and current care plan and goals were discussed. A copy of this along with pertinent instructions were given to the patient at the end of the appointment. The patient voices understanding of all of this and is to call in between appointments if they have any problems or questions. Jessica Sam control is stable overall. , Discussed importance of checking blood glucose regularly and bringing them in to their appointment in order for me to better adjust their medications. , Instructions given today include: Dietary education. No changes to medications Associated Problem(s): Claudication (CMS/HCC) Encouraged smoking cessation and regular walking to help with this. Associated Problem(s): CKD (chronic kidney disease) stage 4, GFR 15-29 ml/min (CMS/HCC) Reviewed patients recent GFR and will continue to monitor this. Encouarged to continue to avoid any NSAIDS or other nephrotoxic agents. Will stay on medications to help prevent any future progression of kidney damage. Associated Problem(s): Essential hypertension (CMS/HCC) Prior to the patient's appointment today, I reviewed past laboratory testing and any diagnostics as it relates in the management of their hypertension. Current blood pressure readings were reviewed with the patient along with blood pressure goal of less than 140/90. Encouraged to continue a low sodium diet and will stay on current medications. Associated Problem(s): Chronic diastolic heart failure (CMS/HCC) Prior to the patient's appointment today, I reviewed past laboratory testing and any diagnostics as it relates in the management of their CHF. Discussed continuing to stay on a low sodium diet and to take daily weights to monitor fluid status. Will continue current therapy for this. Associated Problem(s): Simple chronic bronchitis (CMS/HCC) Stable, no changes needed to current treatment plan. Encouraged smoking cessation but she is not interested Images from the original note were not included. Jessica Sam is a 78 y.o. female presents with chief complaint of Diabetes and Medicare Annual Wellness Visit Initial HPI: MEDICARE WELLNESS Labs: 02/28/23 (annual) Colonoscopy: Refusal 2020 Mammogram: Refusal 2019 Diabetes Mellitus Follow-up: Jessica Sam is here for follow-up evaluation of diabetes mellitus. The initial diagnosis of diabetes was made in 2010 Diabetes complications: Cataracts and renal failure she has not checked sugars in several months- meter stopped working Last A1c: 5.9 (09/24/23) Last eye exam: 07/31/2023 Current concerns include: Has not checked in several months d/t meter not working. Never got a new one. Would like an RX for a new meter. Dropped her Ozempic to 0.25mg around her last visit d/t appetite suppression, increased back to the 0.5 about 1 month ago. Appetite seems to be fine now. Would also like a handicap placard Diet: Eat what she can d/t teeth issues Exercise: None Hypoglycemia: Unsure- not checking. She continues to smoke and will not quit. Diabetes Associated symptoms include fatigue. Pertinent negatives for diabetes include no chest pain, no polydipsia, no polyphagia and no polyuria. List of current healthcare providers: Patient Care Team: Ashlie Melgar DO as PCP - General (Family Medicine) Ashlie Melgar DO as PCP - [facility] Ashlie Melgar DO as PCP - [employer] Medicare Annual Visit Over the past 2 weeks, how often have you been bothered by any of the following problems? Little interest or pleasure in doing things: Not at all Feeling down, depressed, or hopeless: Not at all Patient Health Questionnaire-2 Score: 0 [place] Fall Risk History of Falling, Immediate or Within 3 Months: No Health Risk Assessment Form Do you need help eating, bathing, using the toilet, dressing, or getting around your home?: No Can you prepare your own meals?: Yes Can you do your own housework without help?: Yes Can you shop for groceries or clothes without help?: Yes Do you exercise for about 20 minutes 3 or more days a week?: No How confident are you that you can control and manage most of your health problems?: Very confident Can you mange your money, credit cards and accounts, pay bills and taxes?: Yes Vision Screening: Yes, no gross abnormalities Hearing Screening: Yes, no gross abnormalities Cognitive Screening Self Assessment: No overt cognitive deficiency is apparent by direct observation Pain Assessment Pain Score: 0 - No pain The following health maintenance schedule was reviewed with the patient and provided in printed form in the after visit summary: Health Maintenance Topic Date Due Diabetes: Urine Protein Screening 03/29/2023 Diabetes: Hemoglobin A1C 12/25/2023 Influenza Vaccine (1) 10/19/2024 (Originally 12/22/2023) Diabetes: Retinopathy Screening 07/30/2024 Medicare Annual Wellness (AWV) 03/31/2025 Pneumococcal Vaccine: 65+ Years Discontinued Orders Placed This Encounter Procedures Comprehensive metabolic panel Order Specific Question: Print requisition? Answer: Yes Lipid panel Order Specific Question: Print requisition? Answer: Yes Microalbumin / creatinine urine ratio Order Specific Question: Print requisition? Answer: Yes CBC and differential Order Specific Question: Print requisition? Answer: Yes SUBJECTIVE: PROBLEM LIST SOCIAL ALLERGIES: Patient Active Problem List Diagnosis Adrenal adenoma Benign essential tremor Chronic diastolic heart failure (CMS/HCC) Claudication ([facility]/HCC) Essential hypertension ([facility]/HCC) History of hysterectomy NAFLD (nonalcoholic fatty liver disease) Pure hypercholesterolemia ([facility]/HCC) Secondary hyperparathyroidism of renal origin ([facility]/HCC) Simple chronic bronchitis ([facility]) Type 2 diabetes mellitus with stage 4 chronic kidney disease, without long-term current use of insulin ([facility]) Type 2 diabetes mellitus with both eyes affected by mild nonproliferative retinopathy without macular edema, without long-term current use of insulin ([facility]) Hyperuricemia Microscopic hematuria Vitamin D deficiency CKD (chronic kidney disease) stage 4, GFR 15-29 ml/min ([facility]) Social History Tobacco Use Smoking status: Every Day Types: Cigarettes Start date: 1965 Smokeless tobacco: Never Substance Use Topics Alcohol use: Not Currently Drug use: Never Allergies Allergen Reactions Phenytoin Other Reaction(s): Unknown Phenytoin Sodium Extended Other Reaction(s): Unknown Synopsis [employer] 03/31/2024 Antidiabetic medications Semaglutide 0.5 mg q7 days SC (2 MG/3ML SOPN) Outpatient prescription Medication marked as long-term The 10-year ASCVD risk score (Vanesa MUNOZ, et al., 2019) is: 62.6%* Values used to calculate the score: Age: 78 years Sex: Female Is Non- : No Diabetic: Yes Tobacco smoker: Yes Systolic Blood Pressure: 138 mmHg Is BP treated: Yes HDL Cholesterol: 37 mg/dL* Total Cholesterol: 144 mg/dL* * - Cholesterol units were assumed for this score calculation REVIEW OF SYMPTOMS: Review of Systems Constitutional: Positive for fatigue. Negative for appetite change and unexpected weight change. Eyes: Negative for visual disturbance. Respiratory: Positive for cough and shortness of breath. Negative for wheezing. Cardiovascular: Negative for chest pain, palpitations and leg swelling. Musculoskeletal: Positive for arthralgias. Neurological: Positive for numbness. Endocrine: Negative for polydipsia, polyphagia and polyuria. OBJECTIVE: 03/31/2024 10:30 AM 09/24/2023 10:38 AM 02/28/2023 8:25 AM Vitals BMI 35.53 kg/m2 34.21 kg/m2 35.85 kg/m2 Systolic 138 110 110 Diastolic 68 64 62 Heart Rate 99 76 69 Temp 96.8 F 96.3 F 96.4 F Height (in) 5' 0.75 5' 0.75 5' 0.75 Weight (lb) 186.5 179.6 188.2 Visit Report Report Report Report Physical Exam Constitutional: General: She is not in acute distress. Appearance: Normal appearance. She is obese. Neck: Vascular: No carotid bruit. Cardiovascular: Rate and Rhythm: Normal rate and regular rhythm. Heart sounds: No murmur heard. No friction rub. No gallop. Pulmonary: Breath sounds: Normal breath sounds. No wheezing, rhonchi or rales. Musculoskeletal: General: No swelling. Neurological: Mental Status: She is alert. ASSESSMENT AND PLAN: Problem List Items Addressed This Visit Chronic diastolic heart failure (CMS/HCC) Prior to the patient's appointment today, I reviewed past laboratory testing and any diagnostics as it relates in the management of their CHF. Discussed continuing to stay on a low sodium diet and to take daily weights to monitor fluid status. Will continue current therapy for this. Claudication (CMS/HCC) Encouraged smoking cessation and regular walking to help with this. Essential hypertension (CMS/HCC) Prior to the patient's appointment today, I reviewed past laboratory testing and any diagnostics as it relates in the management of their hypertension. Current blood pressure readings were reviewed with the patient along with blood pressure goal of less than 140/90. Encouraged to continue a low sodium diet and will stay on current medications. NAFLD (nonalcoholic fatty liver disease) Pure hypercholesterolemia (CMS/HCC) Prior to the patient's appointment today, I reviewed past laboratory testing and any diagnostics as it relates in the management of their cholesterol. Encouraged to stay on their statin medication daily and continue with a low cholesterol (mediterranean style) diet. Secondary hyperparathyroidism of renal origin (CMS/HCC) Simple chronic bronchitis (CMS/HCC) Stable, no changes needed to current treatment plan. Encouraged smoking cessation but she is not interested Type 2 diabetes mellitus with stage 4 chronic kidney disease, without long-term current use of insulin ([facility]) During the appointment today all pertinent labs, imaging, health maintenance, and glucose readings were reviewed. Encouraged to check blood glucose throughout the day with some fasting and some PP readings. They are to bring their glucose meter/cgm in to all appointments. All of the patients questions, treatment options, and current care plan and goals were discussed. A copy of this along with pertinent instructions were given to the patient at the end of the appointment. The patient voices understanding of all of this and is to call in between appointments if they have any problems or questions. Jessica Sam control is stable overall. , Discussed importance of checking blood glucose regularly and bringing them in to their appointment in order for me to better adjust their medications. , Instructions given today include: Dietary education. No changes to medications Relevant Medications Blood Glucose Monitoring Suppl ([employer]WEB) w/Device kit glucose blood ([employer] Verio) test strip Lancets ([employer] Delica Plus [id number]) misc Other Relevant Orders Comprehensive metabolic panel Lipid panel Microalbumin / creatinine urine ratio CBC and differential Type 2 diabetes mellitus with both eyes affected by mild nonproliferative retinopathy without macular edema, without long-term current use of insulin ([facility]) CKD (chronic kidney disease) stage 4, GFR 15-29 ml/min ([facility]) Reviewed patients recent GFR and will continue to monitor this. Encouarged to continue to avoid any NSAIDS or other nephrotoxic agents. Will stay on medications to help prevent any future progression of kidney damage. Other Visit Diagnoses Medicare annual wellness visit, subsequent - Primary [facility] I reviewed the patients past medical history along with any laboratory and diagnostic testing preformed prior to the visit. During the visit, health care maintanence was reviewed and recommendations made specifically for the patient based on their risk factors. Blood work: routine blood work ordered. Finally the patient was instructed to call the office if any health issues arise until the next well check/appointment. At the conclusion of the visit all questions were answered which were brought forth. Encouraged to live a healthy lifestyle including a healthy diet and regular exercise. Follow up in about 6 months (around 09/29/2024) for Recheck. Patient's Medications New Prescriptions BLOOD GLUCOSE MONITORING SUPPL ([employer]) W/DEVICE KIT Fsbs daily GLUCOSE BLOOD ([employer] VERIO) TEST STRIP Fsbs daily LANCETS ([employer] NetworksTOUCH DELICA PLUS [id number]) [facility] Previous Medications ACETAMINOPHEN (TYLENOL) 325 MG TABLET 1 tablet as needed Orally ALBUTEROL HFA 90 MCG/ACT INHALER Inhale 2 puffs every 6 (six) hours. ASPIRIN 81 MG EC TABLET Daily FUROSEMIDE (LASIX) 20 MG TABLET Take 2 tablets (40 mg) by mouth in the morning and 2 tablets (40 mg) before bedtime. GLUCOSE BLOOD (TRUETRACK TEST) TEST STRIP TEST FASTING BLOOD SUGAR ONCE A DAY*E11.9* for 90 LISINOPRIL 20 MG TABLET TAKE 1 TABLET BY MOUTH EVERY DAY PRAVASTATIN (PRAVACHOL) 40 MG TABLET TAKE 1 TABLET BY MOUTH EVERY DAY SEMAGLUTIDE,0.25 OR 0.5MG/DOS, (OZEMPIC, 0.25 OR 0.5 MG/DOSE,) 2 MG/3ML SOLUTION PEN-INJECTOR Inject 0.5 mg under the skin every 7 (seven) days Modified Medications No medications on file Discontinued Medications No medications on file I have reviewed and reconciled the history and medication list with the patient today. documented in this encounter [facility] Healthcare Evaluation note 11-08-2022 Note Date & Type Note Facility 11-08-2022 Evaluation note Encounter Date Diagnosis Assessment Notes Oct, Hypertensive chronic kidney disease with stage 1 through stage 4 chronic kidney disease, or unspecified chronic kidney disease (ICD-10 - I12.9) Blood pressure is controlled on current regimen. She appears to be euvolemic. I have advised her to limit her fluid intake 60 ounces a day and Continue Lasix 40 mg twice daily. Oct, Chronic kidney disease, stage III (moderate) (ICD-10 - N18.30) She has CKD due to DM and HTN. Her renal US is unremarkable. She has unremarkable w/u for paraproteinemia . Her baseline Serum Creatinine is 1.3-1.5 mg /dl with no evidence of proteinuria. I discussed with her the importance of good DM and HTN control to slow down the progression of CKD. Oct, Type 2 diabetes mellitus with diabetic chronic kidney disease (ICD-10 - E11.22) Her Blood sugars are within the acceptable range. I have advised her to continue to work with PCP for DM management. I will continue the current dose of lisinopril. I have advised her to reduce weight with diet and exercise. She may benefit with SGLT2 inhibitors including Farxiga, Jardiance or Invokana. I have advised her to discuss with the PCP. Oct, Hyperuricemia (ICD-10 - E79.0) She has hyperuricemia and gout. Continue allopurinol for gout prophylaxis. Oct, Vitamin D deficiency (ICD-10 - E55.9) Her calcium and vitamin D are within the goal. We will resume the vitamin D if drops again. Oct, Hematuria (ICD-10 - R31.9) She has hematuria but has no proteinuria. She was seen by Dr. Figueredo and underwent the Cystoscopy with urethral dilation. Oct, Secondary hyperparathyroidism (ICD-10 - N25.81) Her PTH is within the goal. Continue current medications [facility] Other Evaluation note 04-05-2022 Note Date & Type Note Facility 04-05-2022 Evaluation note Encounter Date Diagnosis Assessment Notes Mar, Hypertensive chronic kidney disease with stage 1 through stage 4 chronic kidney disease, or unspecified chronic kidney disease (ICD-10 - I12.9) Blood pressure is controlled on current regimen. She appears to be euvolemic. I have advised her to limit her fluid intake 60 ounces a day and Continue Lasix 40 mg twice daily. Mar, Chronic kidney disease, stage III (moderate) (ICD-10 - N18.30) She has CKD due to DM and HTN. Her renal US is unremarkable. She has unremarkable w/u for paraproteinemia. Her baseline Serum Creatinine is 1.3-1.5 mg /dl with no evidence of proteinuria. I discussed with her the importance of good DM and HTN control to slow down the progression of CKD. Mar, Type 2 diabetes mellitus with diabetic chronic kidney disease (ICD-10 - E11.22) Her Blood sugars are within the acceptable range. I have advised her to continue to work with PCP for DM management. I will continue the current dose of lisinopril. I have advised her to reduce weight with diet and exercise. She may benefit with SGLT2 inhibitors including Farxiga, Jardiance or Invokana. I have advised her to discuss with the PCP. Mar, Hyperuricemia (ICD-10 - E79.0) She has hyperuricemia and gout. Continue allopurinol for gout prophylaxis. Mar, Vitamin D deficiency (ICD-10 - E55.9) She has low Vit D. Reume Ergocalciferol Mar, Hematuria (ICD-10 - R31.9) She has hematuria but has no proteinuria. She was seen by Dr. Figueredo and underwent the Cystoscopy with urethral dilation. Mar, Secondary hyperparathyroidism (ICD-10 - N25.81) Her PTH is within the goal. Continue current medications Mar, Iron deficiency (ICD-10 - E61.1) Hemoglobin is within the goal. We will check iron studies. I have advised her to consider the colonoscopy to rule out malignancy. [facility] Other Evaluation note 09-14-2021 Note Date & Type Note Facility 09-14-2021 Evaluation note Encounter Date Diagnosis Assessment Notes August, Hypertensive chronic kidney disease with stage 1 through stage 4 chronic kidney disease, or unspecified chronic kidney disease (ICD-10 - I12.9) Blood pressure is controlled on current regimen. She appears to be hypervolemic. I have advised her to limit her fluid intake 60 ounces a day and increase the Lasix 40 mg twice daily. August, Chronic kidney disease, stage III (moderate) (ICD-10 - N18.30) She has CKD due to DM and HTN. Her renal US is unremarkable. She has unremarkable w/u for paraproteinemia. Her baseline Serum Creatinine is 1.5 mg /dl with no evidence of proteinuria. I discussed with her the importance of good DM and HTN control to slow down the progression of CKD. August, Type 2 diabetes mellitus with diabetic chronic kidney disease (ICD-10 - E11.22) Her Blood sugars are within the acceptable range. I have advised her to continue to work with PCP for DM management. I will continue the current dose of lisinopril. I have advised her to reduce weight with diet and exercise. She may benefit with SGLT2 inhibitors including Farxiga, Jardiance or Invokana. I have advised her to discuss with the PCP. August, Hyperuricemia (ICD-10 - E79.0) She has hyperuricemia and gout. Continue allopurinol for gout prophylaxis. August, Secondary hyperparathyroidism (ICD-10 - N25.81) Her PTH is within the goal. Continue current medications August, Hematuria (ICD-10 - R31.9) She has hematuria but has no proteinuria. She was seen by Dr. Figueredo and underwent the Cystoscopy with urethral dilation. August, Vitamin D deficiency (ICD-10 - E55.9) Her Vitamin D has improved . Continue oral Ergocalciferol August, Anemia of renal disease (ICD-10 - D63.1) Hemoglobin is within the goal. We will check iron studies. I have advised her to consider the colonoscopy to rule out malignancy. [facility] Other Evaluation note 06-06-2021 Note Date & Type Note Facility 06-06-2021 Evaluation note Encounter Date Diagnosis Assessment Notes May, Peripheral artery disease (ICD-10 - I73.9) May, Other Leg pain This patient does not have significant peripheral vascular occlusive disease by physical examination or history. She is primarily limited due to the severity of her chronic obstructive pulmonary disease and is not interested in discontinuing smoking. I did explain to her that the risks for developing significant symptomatic arterial disease is much higher for her given her risk factors and continued smoking. We will see her back on an as-needed basis. [facility] Other Evaluation note Note Date & Type Note Facility Evaluation note [employer] Other Evaluation note Note Date & Type Note Facility Evaluation note Diagnosis Onset Date CKD (chronic kidney disease) stage 3, GFR 30-59 ml/min acute [id number] acute Hyperuricemia acute Microscopic hematuria acute Secondary hyperparathyroidism acute Type 2 diabetes mellitus wit h diabetic chronic kidney disease acute Vitamin D deficiency acute [facility] Work Phone: Evaluation note Note Date & Type Note Facility Evaluation note Diagnosis Medicare annual wellness visit, subsequent- Primary Type 2 diabetes with nephropathy ([facility]/HCC) 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 Chronic diastolic heart failure (CMS/HCC) Chronic diastolic heart failure Essential hypertension (CMS/HCC) Unspecified essential hypertension NAFLD (nonalcoholic fatty liver disease) Stage 3b chronic kidney disease (HCC) (CMS/HCC) Secondary hyperparathyroidism of renal origin (CMS/HCC) Secondary hyperparathyroidism (of renal origin) Severe obesity (CMS/HCC) Morbid obesity Pure hypercholesterolemia (CMS/HCC) Pure hypercholesterolemia Simple chronic bronchitis (CMS/HCC)- Primary 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, without long-term current use of insulin (CMS/HCC) Chronic diastolic heart failure (CMS/HCC) Chronic diastolic heart failure Essential hypertension (CMS/HCC) Unspecified essential hypertension NAFLD (nonalcoholic fatty liver disease) Secondary hyperparathyroidism of renal origin (CMS/HCC) Secondary hyperparathyroidism (of renal origin) Pure hypercholesterolemia (CMS/HCC) Pure hypercholesterolemia CKD (chronic kidney disease) stage 4, GFR 15-29 ml/min (CMS/HCC) Chronic kidney disease, Stage IV (severe) Type 2 diabetes mellitus with stage 4 chronic kidney disease, without long-term current use of insulin (CMS/HCC) Peripheral vascular disease, unspecified (CMS/HCC) Peripheral vascular disease, unspecified Seborrheic keratosis Medicare annual wellness visit, subsequent- Primary Type 2 diabetes mellitus with stage 4 chronic kidney disease, without long-term current use of insulin (CMS/HCC) 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 Chronic diastolic heart failure (CMS/HCC) Chronic diastolic heart failure Essential hypertension (CMS/HCC) Unspecified essential hypertension NAFLD (nonalcoholic fatty liver disease) CKD (chronic kidney disease) stage 4, GFR 15-29 ml/min (CMS/HCC) Chronic kidney disease, Stage IV (severe) Claudication (CMS/HCC) Unspecified peripheral vascular disease Secondary hyperparathyroidism of renal origin (CMS/HCC) Secondary hyperparathyroidism (of renal origin) Type 2 diabetes mellitus with both eyes affected by mild nonproliferative retinopathy without macular edema, without long-term current use of insulin (CMS/HCC) Pure hypercholesterolemia (CMS/HCC) Pure hypercholesterolemia documented in this encounter [facility] Healthcare History general Narrative - Reported Note Date & Type Note Facility History general Narrative - Reported [facility] Other History general Narrative - Reported Note Date & Type Note Facility History general Narrative - Reported Type Medical History TYPE II DIABETIC Medical History HTN Medical History HYPERLIPIDEMIA Medical History KIDNEY DISEASE STAGE 3# Medical History ADRENAL ADENOMA Medical History CERVICAL CANCER Medical History PULMONARY NODULE Medical History PAD Medical History Cervical cancer diag nosed in the 1970s Surgical History HIATAL HERNIA Surgical History APPENECTOMY Surgical History TOTAL HYSTRECTOMY Surgical History OVARIAN TUMOR REMOVAL Surgical History CERVICAL CANCER Surgical History BILATERAL KNEE REPLACEMENTS Surgical History HERNIA repair 11/2014 Surgical History eye lid lifts 12/2019 Hospitalization History SEE ABOVE SURGERY Hospitalization History CHILD X'S 5 [facility] Other Summary Purpose Family History No Family History Records Found Relationship Condition Age at Onset Recorded Date/T rubi father Heart disease Unknown History of stroke Unknown Unknown Hypertension Unknown family member Unknown grandparent Diabetes mellitus Unknown Not Specified Hypertension Unknown natural son Malignant neoplasm Unknown sister Hypertension Unknown Malignant neoplasm Unknown Advance Directives No Advanced Directives Records Found Advance Directive Response Recorded Date/ Time Advance Directives No September 09 8 5:43pm Chief Complaint and Reason for Visit Chief Complaint RENAL 6 MONTH F/U Reason for Visit CKD (chronic kidney disease) stage 3, GFR 30-59 ml/min [id number] Hyperuricemia Microscopic hematuria Secondary hyperparathyroidism Type 2 diabetes mellitus with diabetic chronic kidney disease Vitamin D deficiency Additional Source Comments INFORMATION SOURCE (unrecogn ized section and content) DATE CREATED AUTHOR 03/05/2021 [facility] DATE CREATED AUTHOR AUTHOR'S ORGANIZ ATION 04/03/2022 [facility] DATE CREATED AUTHOR AUTHOR'S ORGANIZ ATION 04/03/2024 [facility] EPIC REASON FOR VISIT (unrecogniz ed section and content) Reason Comments Diabetes Medicare Annual Wellness Visit Initial Care Teams (unrecognized sec tion and content) Team Status: Active Member Role Status Dates Ashlie Melgar DO Primary Care Provider Active Team Status: Active Member Role Status Dates Ashlie Melgar DO Primary Care Provider Active Start: August 21, 2023 Felicitas Leong MD Attending Provider Active Start : August 21, 2023 Team Status: Inactive Member Role Status Dates Ashlie Melgar DO Primary Care Provider Active Start: August 26, 2023 End: August 26, 2023 Felicitas Leong MD Attending Provider Active Start : August 26, 2023 End: August 26, 2023 Service Desk Director Relationship Specialty Start Date End Date Ashlie Melgar DO [address] [place] [address] PCP - O Reach 09/13/22 Ashlie Melgar DO [address] [place] [address] PCP - General Family Medicine 08/28/22 Ashlie Melgar, DO [address] [place] [address] PCP - [facility] 06/21/23 04/21/24 Goals (unrecognized section and content) Goals may be documented in a n alternate section FOR RECORDS PERTAINING TO PATIENTS WHO ARE OR HAVE BEEN ENROLLED IN A CHEMICAL DEPENDENCY/SUBSTANCEABUSE PROGRAM, SOME INFORMATION MAY BE OMITTED. This clinical summary was aggregated from multiple sources. Caution should be exercised in using it in the provision of clinical care. This summary normalizes information from multiple sources, and as a consequence, information in this document may materially change the coding, format and clinical context of patient data. In addition, data may be omitted in some cases. CLINICAL DECISIONS SHOULD BE BASED ON THE PRIMARY CLINICAL RECORDS. [facility] [employer] [facility]. provides no warranty or guarantee of the accuracy or completeness of information in this document.
[2024-04-20 12:34] LABS: Hemoglobin 12.1 g/dL (12.0-16.0); Mean Corpuscular HGB Conc 32.7 g/dL (29.9-35.2); Mean Corpuscular Hemoglobin 31.8 pg (26.7-34.0); Mean Corpuscular Volume 97.4 fL (81.0-99.0); Mean Platelet Volume 10.7 fL (9.5-13.5); Platelet Count 283 10^3/uL (150-450); Red Cell Distribution Width 12.6 % (11.0-15.0)
[2024-04-20 12:35] LABS: Creatinine Urine Random 180.12 mg/dL (20.00-300.00); Protein Creatinine Ratio Urine 0.15
[2024-04-20 12:40] LABS: Bilirubin Urine NEGATIVE (NEGATIVE); Blood Urine TRACE-I (NEGATIVE); Clarity Urine CLEAR (CLEAR); Color Urine YELLOW (YELLOW); Glucose Urine UA NEGATIVE (NEGATIVE); Ketones Urine NEGATIVE (NEGATIVE); Leukocyte Esterase Urine NEGATIVE (NEGATIVE); Nitrite Urine NEGATIVE (NEGATIVE); Protein Urine NEGATIVE (NEG/TRACE)
[2024-04-20 12:51] LABS: Bacteria Urine TRACE #/HPF (NONE SEEN); Cast Seen? SEEN #/LPF (NONE SEEN); Crystals Seen? None Seen #/HPF (None Seen); Hyaline Casts Urine RARE; Mucus Urine NONE SEEN (NONE SEEN); RBC Urine 0-2 #/HPF (0-2); Squamous Epithelial Cell Urine FEW #/LPF (NONE/RARE); WBC Urine 0-2 #/HPF (NONE SEEN)
[2024-04-20 13:00] LABS: Albumin Level 3.7 g/dL (3.4-5.0); Anion Gap 10.9; BUN Creatinine Ratio 14.8; Calcium 9.2 mg/dL (8.5-10.1); Carbon Dioxide 28.2 mmol/L (21.0-32.0); Chloride 106 mmol/L (98-107); Estimated GFR (African America 29 (>=60 mL/min/1.73m^2); Estimated GFR (Non-African Ame 24 (>=60 mL/min/1.73m^2); Glucose 101 mg/dL (74-106); Magnesium 2.3 mg/dL (1.8-2.4); Phosphorus 3.2 mg/dL (2.6-4.7); Potassium 4.1 mmol/L (3.5-5.1); Sodium 141 mmol/L (136-145); Uric Acid 10.3 mg/dL (2.6-6.0)
[2024-04-21 09:08] LABS: PTH, Intact 94 pg/mL (15-65)
== END 2024-04-20 11:59 | disposition home or self-care (01) ==
LOC: LAB 12:01
PROVIDERS: PCP Family Medicine; Visit Provider Internal Medicine
DX: R31.29 Other microscopic hematuria (principal); N25.81 Secondary hyperparathyroidism of renal origin; E55.9 Vitamin D deficiency, unspecified; E79.0 Hyperuricemia without signs of inflammatory arthritis and tophaceous disease; E11.22 Type 2 diabetes mellitus with diabetic chronic kidney disease; I12.9 Hypertensive chronic kidney disease with stage 1 through stage 4 chronic kidney disease, or unspecified chronic kidney disease; N18.30 Chronic kidney disease, stage 3 unspecified
CPT/HCPCS: 36415; 80069; 81001; 82306; 82570; 83735; 83970; 84156; 84550; 85027

== ENCOUNTER 2024-09-11 12:56 | Outpatient (OUT) | payer MEDICARE, MEDICAID, SELFPAY ==
--- OUTSIDE RECORDS SUMMARY | 2024-03-31 11:26 | XMS_ITS ---
Author Name Auto Generated Organization OH[facility] Care Team Providers Care Financial Management Name Role Phone GARY MELGAR Attending Unavailable GARY MELGAR Referring Unavailable GARY MELGAR Attending Unavailable PROBLEMS No Problem Records Found PROCEDURES No Procedure Records Found RESULTS No Result Records Found ALLERGIES No Allergies Records Found ENCOUNTERS ADMIT/DISCHARGE ACCOUNT NUMBER ADMITTING ENCOUNTER CLASS LOCATION SOURCE 03/31/2024/ 4 [id number] Ambulatory Building:[facility] 09/24/2023/ 4 [id number] Ambulatory Building:[facility] PAYERS ENCOUNTER GUARANTOR PAYER SUBSCRIBER SOURCE 03/31/2024 KATTY REBOLLARB: [address] [address]Oqg: () [place]: [id number] Date:2017-04-22 KATTY Nay KETURAHB: [id number] [address] [address] [facility] 03/31/2024 Secondary Insurance:UNITED HEALTHCARE MEDICAREPolicy Number: [id number] Date:2023-06-21 KATTY Nay KETURAHB: [id number] [address] [facility] 09/24/2023 KATTY Nay CARLITO: [place] [address]Xfi: () [place] Insurance[place]: [id number] Date:2017-04-22 KATTY ESTEBAN: [id number] [place] [address] [facility] 09/24/2023 Secondary Insurance:UNITED HEALTHCARE MEDICAREPolicy Number: [id number] Date:2023-06-21 KATTY ESTEBAN: [id number] [place] [address] [facility]
--- OUTSIDE RECORDS SUMMARY | 2024-09-11 13:01 | XMS_ITS | Patient Health Record ---
Author Organization [facility] vices Address [address] [place], [place] [id number] Care Team Providers Care Tank Hoop Bender Name Role Phone Marine Tavares Unavailable [phone] Allergies Allergen (clinical drug ingredient) Drug/Non Drug Allergy documented on EMR Reaction Allergy Type Onset Date Status phenytoin Dilantin Unknown Drug Allergy Active Reason For Referral No Information Medications Medication SIG (Take, Route, Frequency, Duration) Notes Start Date End Date Status Ozempic (0.25 or 0.5 MG/DOSE) 2 MG/1.5ML INJECT 0.5 MG SUBCUTANEOUSLY EVERY WEEK Subcutaneous for 28 Days Active Pravastatin Sodium 40 MG TAKE 1 TABLET B Y MOUTH EVERY DAY FOR 90 DAYS Oral for 90 Days Active Lisinopril 20 MG TAKE 1 TABLET BY ROBYN TH EVERY DAY FOR 90 DAYS Oral for 90 Days Active Allopurinol 100 MG TAKE 1 TABLET BY ROBYN TH EVERY DAY Oral for 90 Days Activ e Furosemide 20 MG TAKE 2 TABLETS BY MO UTH TWICE A DAY Oral for 90 Days Active Social History Sex Assigned At : Social History Observation Description Sex Assigned At Female Plan Of Treatment No Information Insurance Providers Payer Name Payer Address Payer Phone Subscriber Number Group Number Insured Name Patient Relationship to Insured Coverage Start Date Coverage End Date DMedicaid [address] [place], [place] [id number] Jessica Sam Self - patient is the insured 2
--- OUTSIDE RECORDS SUMMARY | 2024-09-11 13:01 | XMS_ITS | Clinical Summary ---
Author Organization [facility] Address [address] [place] [address] Care Team Providers Care Administrative Clerk Name Role Phone Mercedes Ashlie Larson DO Primary Care Provider [phone] Allergies Active Allergy Reactions Criticality Noted Date Comments Phenytoin 02/28/2023 Other Reaction(s): Unknown Phenytoin Sodium Extended 02/28/2023 Other Reaction(s): Unknown Medications glucose blood (TrueTrack Test) test strip TEST FASTING BLOOD SUGAR ONCE A DAY*E11.9* for 90 Active acetaminophen (Tylenol) 325 MG tablet 1 tablet as needed Orally Active furosemide (Lasix) 20 MG tabletIndications:Chroni c diastolic heart failure (CMS/HCC) Take 2 tablets (40 mg) by mouth in the morning and 2 tablets (40 mg) before bedtime. 02/29/20 23 Active albuterol HFA 90 mcg/act inhalerIndications:Simpl e chronic bronchitis ([facility]/HCC) Inhale 2 puffs every 6 (six) hours. 18 g 02/29/20 23 Active aspirin 81 MG EC tablet Daily 05/0 10/09 24 Active glucose blood (OneTouch Verio) test stripIndications:Type 2 diabetes mellitus with stage 4 chronic kidney disease, without long-term current use of insulin ([facility]) Fsbs daily 100 strip 3 03/31/20 24 Active Lancets (OneTouch Delica Plus [id number]) miscIndications:Type 2 diabetes mellitus with stage 4 chronic kidney disease, without long-term current use of insulin ([facility]/HCC) Fsbs daily 100 each 3 03/31/20 24 Active lisinopril 20 MG tabletIndications:Essent ial hypertension (CMS/HCC) TAKE 1 TABLET BY MOUTH EVERY DAY 90 tablet 3 04/20/20 24 Active pravastatin (Pravachol) 40 MG tabletIndications:Pure hypercholesterolemia (CMS/HCC) TAKE 1 TABLET BY MOUTH EVERY DAY 90 tablet 3 04/20/20 24 Active Semaglutide,0.25 or 0.5MG/DOS, (Ozempic, 0.25 or 0.5 MG/DOSE,) 2 MG/3ML solution pen-injectorIndications: Type 2 diabetes mellitus with diabetic nephropathy ([facility]) INJECT 0.5 MG UNDER THE SKIN EVERY 7 DAYS 9 mL 1 05/26/19 25 Active Blood Glucose Monitoring Suppl (Anpro21 VerDVS Intelestream Reflect) w/Device kitIndications:Type 2 diabetes mellitus with stage 4 chronic kidney disease, without long-term current use of insulin ([facility]) USE TO CHECK FASTING BLOOD SUGAR DAILY 1 kit 07/11/19 25 Active Active Problems Problem Noted Date Diagnosed Date Hyperuricemia 09/24/2023 Microscopic hematuria 09/24/2023 Vitamin D deficiency 09/24/2023 CKD (chronic kidney disease) stage 4, GFR 15-29 ml/min 09/24/2023 Assessment & Plan (03/31/2024 12:41 PM EST): Reviewed patients recent GFR and will continue to monitor this. Encouarged to continue to avoid any NSAIDS or other nephrotoxic agents. Will stay on medications to help prevent any future progression of kidney damage. Type 2 diabetes mellitus wit h both eyes affected by mild nonproliferative retinopathy without macular edema, without long-term current use of insulin 08/01/2023 Adrenal adenoma 02/28/2023 Benign essential tremor 02/28/2023 Chronic diastolic heart failure 02/28/2023 Assessment & Plan (03/31/2024 12:41 PM EST): Prior to the patient's appointment today, I reviewed past laboratory testing and any diagnostics as it relates in the management of their CHF. Discussed continuing to stay on a low sodium diet and to take daily weights to monitor fluid status. Will continue current therapy for this. Assessment & Plan (02/28/2023 10:06 AM EST): Prior to the patient's appointment today, I reviewed past laboratory testing and any diagnostics as it relates in the management of their CHF. Discussed continuing to stay on a low sodium diet and to take daily weights to monitor fluid status. Will continue current therapy for this. Claudication 02/28/2023 Assessment & Plan (03/31/2024 12:41 PM EST): Encouraged smoking cessation and regular walking to help with this. Essential hypertension 02/28/2023 Assessment & Plan (03/31/2024 12:41 PM EST): Prior to the patient's appointment today, I reviewed past laboratory testing and any diagnostics as it relates in the management of their hypertension. Current blood pressure readings were reviewed with the patient along with blood pressure goal of less than 140/90. Encouraged to continue a low sodium diet and will stay on current medications. Assessment & Plan (02/28/2023 10:07 AM EST): Prior to the patient's appointment today, I reviewed past laboratory testing and any diagnostics as it relates in the management of their hypertension. Current blood pressure readings were reviewed with the patient along with blood pressure goal of less than 140/90. Encouraged to continue a low sodium diet and will stay on current medications. History of hysterectomy 02/28/2023 NAFLD (nonalcoholic fatty liver disease) 023 Assessment & Plan (02/28/2023 10:07 AM EST): Encouraged healthy eating and regular exercise to help with weight loss. Pure hypercholesterolemia 02/28/2023 Assessment & Plan (03/31/2024 12:42 PM EST): Prior to the patient's appointment today, I reviewed past laboratory testing and any diagnostics as it relates in the management of their cholesterol. Encouraged to stay on their statin medication daily and continue with a low cholesterol (mediterranean style) diet. Assessment & Plan (02/28/2023 10:08 AM EST): Prior to the patient's appointment today, I reviewed past laboratory testing and any diagnostics as it relates in the management of their cholesterol. Encouraged to stay on their statin medication daily and continue with a low cholesterol (mediterranean style) diet. Secondary hyperparathyroidism of renal origin Simple chronic bronchitis 02/28/2023 Assessment & Plan (03/31/2024 12:41 PM EST): Stable, no changes needed to current treatment plan. Encouraged smoking cessation but she is not interested Assessment & Plan (09/25/2023 7:21 PM EDT): Again encouraged smoking cessation but pt is not interested in this. She is mainly asymptomatic so no additional medication is needed. Assessment & Plan (02/28/2023 10:06 AM EST): Discussed current breathing status with the patient today. They are currently well controlled and using their rescue inhaler less than 2 times a week. Will stay on current therapy. Encouraged smoking cessation but pt is not interested. Type 2 diabetes mellitus wit h stage 4 chronic kidney disease, without long-term current use of insulin 02/28/2023 Assessment & Plan (03/31/2024 12:42 PM EST): During the appointment today all pertinent labs, [...] include: Dietary education. No changes to medications Assessment & Plan (09/25/2023 7:22 PM EDT): During the appointment today all pertinent labs, [...] have any problems or questions. Jessica Sam is doing very well and encouraged on this. , Will stay on current medications. Assessment & Plan (02/28/2023 10:07 AM EST): During the appointment today all pertinent labs, [...] have any problems or questions. Jessica Sam is doing very well and encouraged on this. , Will stay on current medications. Resolved Problems Problem Noted Date Diagnosed Date Resolved Date Hyperglycemia due to type 2 diabetes mellitus 02/29/2002/28/2023 Severe obesity 02/28/2023 09/24/2023 Stage 3b chronic kidney disease (HCC) 02/28/2023 09/24/2023 Assessment & Plan (02/28/2023 10:07 AM EST): Reviewed patients recent GFR and will continue to monitor this. Encouarged to continue to avoid any NSAIDS or other nephrotoxic agents. Will stay on medications to help prevent any future progression of kidney damage. Continues to follow with nephrology Encounters Date Type Department Care Team Description 08/10/2024 Abstract [facility] [address] [facility] [address] [place] [id number] Ashlie Long DO 07/10/2024 Refill [facility] [address] [place] [address] [place] [phone] Ashlie Long, DO Type 2 diabetes mellitus with stage 4 chronic kidney disease, without long-term current use of insulin ([facility]) from Last 3 Months Immunizations Immunization Administration Dates Next Due Pneumococcal Polysaccharide PPSV23 12/14/2014, Family History Medical History Relation Name Comments Hypertension Father Hypertension Mother Relation Name Status Comments Brother 2 brothers Daughter 1 daughter Father Mother Sister 4 sisters Son 4 sons Social History Tobacco Use Types Packs/Day Years Used Date Smoking Tobacco: Every Day Cigarettes Started: 1965 Smokeless Tobacco: Never Tobacco Cessation:Ready to Q uit: Not Asked; Counseling Given: Yes Alcohol Use Standard Drinks/Week Comments Not Currently 0 (1 standard drink = 0.6 oz pur e alcohol) AUDIT-C Answer Date Recorded Q1: How often do you have a drink containing alcohol? Never 09/03/2023 Q2: How many drinks containi ng alcohol do you have on a typical day when you are drinking? Patient does not drink Q3: How often do you have si x or more drinks on one occasion? Never 09/03/2023 PHQ-2 Answer Date Recorded Patient Health Questionnaire-2 Score 0 03/31/2024 Comments Unknown Sex and Gender Information Value Date Recorded Sex Assigned at Not on file Legal Sex Female 7:10 PM EDT Gender Identity Not on file Sexual Orientation Not on file Last Filed Vital Signs Vital Sign Reading Time Taken Comments Blood Pressure 138/68 03/31/2024 10:30 AM EST Pulse 99 03/31/2024 10:30 AM EST Temperature 36 C (96.8 F) 03/31/2024 10:30 AM EST Respiratory Rate - - Oxygen Saturation 96% 03/31/2024 10:30 AM EST Inhaled Oxygen Concentration - - Weight 84.6 kg (186 lb 8 oz) 03/31/2024 10:30 AM EST Height 154.3 cm (5' 0.75 ) 03/31/2024 10:[address] Body Mass Index 35.53 03/31/2024 10:30 AM EST Plan of Treatment Upcoming Encounters Date Type Department Care Team (Late st Contact Info) Description 10/05/2024 1:00 PM EDT Office Visit [facility] [address] [place] [address] [place] [phone] Ashlie Long, [address] [place] [address] [place] [address] Health Maintenance Due Date Last Done Comments Diabetes: Urine Protein Screening 03/29/2023 03/29/2022, 09/07/2021, 09/07/2021, Additional history exists Diabetes: Hemoglobin A1C 12/25/2023 024, 02/28/2023, 08/27/2022, Additional history exists Diabetes: Retinopathy Screening 07/30/2024 07/31/2023, 08/09/2021, 02/08/2021, Additional history exists Influenza Vaccine (Season Ended) 2024 Medicare Annual Wellness (AWV) 03/31/2025 1 06/01/2023, 02/28/2023, 10/05/2021 Pneumococcal Vaccine: 65+ Years Discontinued 5, 04/22/2010 Procedures Procedure Name Priority Date/Time Associated Diagnosis Comments POCT GLYCOSYLATED HEMOGLOBIN (HGB A1C) Routine 09/24/2023 10:47 AM EDT Type 2 diabetes with nephropathy ([facility]) DIABETIC RETINOPATHY SCREENING - OU - BOTH EYES Routine 07/31/2023 3:20 PM EDT URINE T PROTEIN CREAT RATIO Routine 03/29/2022 from Last 3 Months or Most Recently Relevant to Health Maintenance Results * POCT glycosylated hemoglobin (Hb A1C) docked device (09/24/2023 10:47 AM EDT) Hemoglobin A1C 5.9 Blood Venous blood specimen / Unknown 09/24/2023 10:47 AM EDT us Ashlie Long DO POINT OF CARE TEST ENTER/E DIT ORDERABLES Final Result * Diabetic Retinopathy Screening - OU - Both Eyes (07/31/2023 3:20 PM EDT) Anatomical Region Laterality Modality Head Other us Ashlie Long DO OPHTH PHOTOGRAPHY Final Re sult * URINE T PROTEIN CREAT RATIO (03/29/2022) PROTEIN, URINE 11.0 <=12.0 [facility] URINE CREAT 48.77 20.00 - 300.00 [facility] UR PROT CREAT RAT 0.23 [facility] PERFORMING LAB: see note [facility] Comment:[facility] [address] [id number] ,Ext. [phone] 03/29/2022 Ashlie Long DO [facility] Final Resu lt [facility] from Last 3 Months or Most Recently Relevant to Health Maintenance Insurance MEDICAID [place] [employer] MEDICARE Care Teams Administrative Clerk Relationship Specialty Start Date End Date Ashlie Long DO [address] [place] [address] [place] [address] PCP - General Family Medicine 08/28/22
--- OUTSIDE RECORDS SUMMARY | 2024-09-11 13:01 | XMS_ITS | Encounter Summary ---
Author Organization [facility] Address [address] [facility] [place] [address] Care Team Providers Care Exam Proctor Name Role Phone Ashlie Long DO Unavailable [phone] PetAshlie mejia DO Primary Care Provider + [phone] Ashlie Long DO Unavailable [phone] Petjackie, Ashlie Larson DO Unavailable [phone] Encounter Details Date Type Department Care Team (Late st Contact Info) Description 12/31/2022 Orders Only [facility] [address] [facility] [address] [place] [address] A, Unknown Practice [address] [place], [place] [id number] Social History Tobacco Use Types Packs/Day Years Used Date Smoking Tobacco: Never Assessed Comments Unknown Sex and Gender Information Value Date Recorded Sex Assigned at Not on file Legal Sex Female 7:10 PM EDT Gender Identity Not on file Sexual Orientation Not on file documented as of this encounter Plan of Treatment Upcoming Encounters Date Type Department Care Team (Late Contact Info) Description 10/05/2024 1:00 PM EDT Office Visit [facility] [address] [facility] [address] [place] [address] Ashlie Long DO [address] [place] [address] [place] [id number] documented as of this encounter Procedures Procedure Name Priority Date/Time Associated Diagnosis Comments DIABETES EYE EXAM Routine 12/25/2022 4:18 PM EDT documented in this encounter Results * Diabetes Eye Exam (12/25/2022 4:18 PM EDT) us Unknown Practice A HEALTH MAINTENANCE Final Resu lt documented in this encounter Visit Diagnoses Not on filedocumented in this encounter Care Teams Exam Proctor Relationship Specialty Start Date End Date Ashlie Long, DO [address] [place] [address] [place] [address] PCP - [facility] 09/13/22 05/28/24 Ashlie Long, DO [address] [place] [address] [place] [address] PCP - General Family Medicine 08/28/22 Ashlie Long, DO [address] [place] [address] [place] [address] PCP - [facility] 06/21/23 07/20/24 Ashlie Long, DO [address] [place] [address] [place] [address] PCP - [facility] 06/05/24 07/23/24 documented as of this encounter
--- OUTSIDE RECORDS SUMMARY | 2024-09-11 13:01 | XMS_ITS | Encounter Summary ---
Author Organization [facility] Address [address] [place] [address] Care Team Providers Care Button Decorating Machine Operator Name Role Phone Ashlie Long DO Primary Care Provider [phone] Encounter Details Date Type Department Care Team ([facility] Contact Info) Description 08/10/2024 Abstract [facility] [address] [facility] [address] [place] [address] Ashlie Long, [address] [facility] [address] [place], [place] [phone] Social History Tobacco Use Types Packs/Day Years Used Date Smoking Tobacco: Every Day Cigarettes Started: 1965 Smokeless Tobacco: Never Alcohol Use Standard Drinks/Week Comments Not Currently [...] Upcoming Encounters Date Type Department Care Team ([facility] Contact Info) Description 10/05/2024 1:00 PM EDT Office Visit [facility] [address] [facility] [address] [place] [address] Ashlie Long DO [address] [place] [address] [place] [address] documented as of this encounter Visit Diagnoses Not on filedocumented in this encounter Care Teams Button Decorating Machine Operator Relationship Specialty Start Date End Date Ashlie Long DO [address] [place] [address] [place] [address] PCP - General Family Medicine 08/28/22 documented as of this encounter
--- OUTSIDE RECORDS SUMMARY | 2024-09-11 13:01 | XMS_ITS | Encounter Summary ---
Author Organization [facility] Address [address] [place] [address] Care Team Providers Care Liner Worker Name Role Phone Ashlie Long DO Unavailable [phone] Ashlie Long DO Primary Care Provider + [phone] sAhlie Long DO Unavailable [phone] Ashlie Long DO Unavailable [phone] Encounter Details Date Type Department Care Team (Late st Contact Info) Description 08/01/2023 Orders Only [facility] [address] [facility] [address] [place] [address] Ashlie Long DO [address] [facility] [address] [place] [address] Social History Tobacco Use Types Packs/Day Years Used Date Smoking Tobacco: Every Day Cigarettes Started: 1966 Alcohol Use Standard Drinks/Week Comments Not Currently 0 (1 standard drink = 0.6 oz pur e alcohol) Comments Unknown Sex and Gender Information Value Date Recorded Sex Assigned at Not on file Legal Sex Female 7:10 PM EDT Gender Identity Not on file Sexual Orientation Not on file documented as of this encounter Plan of Treatment Upcoming Encounters Date Type Department Care Team (Late st Contact Info) Description 10/05/2024 1:00 PM EDT Office Visit [facility] [address] [facility] [address] [place] [address] Ashlie Long DO [address] [facility] [address] [place] [address] documented as of this encounter Procedures Procedure Name Priority Date/Time Associated Diagnosis Comments DIABETIC RETINOPATHY SCREENING - OU - BOTH EYES Routine 07/31/2023 3:20 PM EDT documented in this encounter Results * Diabetic Retinopathy Screening - OU - Both Eyes (07/31/2023 3:20 PM EDT) Anatomical Region Laterality Modality Head Other us Ashlie Long DO OPHTH PHOTOGRAPHY Final Re sult documented in this encounter Visit Diagnoses Not on filedocumented in this encounter Care Teams Liner Worker Relationship Specialty Start Date End Date Ashlie Long, DO [address] [place] [address] [place] [address] PCP - [facility] 09/13/22 05/28/24 Ashlie Long, DO [address] [place] [address] [place] [address] PCP - General Family Medicine 08/28/22 Ashlie Long, DO [address] [place] [address] [place] [address] PCP - [facility] 06/21/23 07/20/24 Ashlie Long, DO [address] [place] [address] [place] [address] PCP - [facility] 06/05/24 07/23/24 documented as of this encounter
--- OUTSIDE RECORDS SUMMARY | 2024-09-11 13:01 | XMS_ITS | Clinical Summary ---
Author Organization [facility] Address [facility] [id number] [place] [address] Care Team Providers Care Groundskeeping Maintenance Worker Name Role Phone Unavailable Primary Care Provider Unavailabl e Social History Tobacco Use Types Packs/Day Years Used Date Smoking Tobacco: Never Assessed Childcare Answer Date Recorded Childcare Unknown 10/01/2018 Employment Answer Date Recorded Employment Unknown 10/01/2018 Comments Unknown Sex and Gender Information Value Date Recorded Sex Assigned at Not on file Legal Sex Female 7:47 PM EDT Gender Identity Not on file Sexual Orientation Not on file Plan of Treatment Not on file Medical Devices Not on file
[2024-09-11 13:21] LABS: Hematocrit 36.7 % (36.0-48.0); Mean Corpuscular HGB Conc 32.7 g/dL (29.9-35.2); Mean Corpuscular Hemoglobin 31.8 pg (26.7-34.0); Mean Corpuscular Volume 97.3 fL (81.0-99.0); Mean Platelet Volume 9.5 fL (9.5-13.5); Platelet Count 336 10^3/uL (150-450); Red Blood Count 3.77 10^6/uL (4.20-5.40); Red Cell Distribution Width 13.2 % (11.0-15.0); White Blood Count 8.8 10^3/uL (4.0-11.0)
[2024-09-11 13:24] LABS: Creatinine Urine Random 19.74 mg/dL (20.00-300.00); Total Protein Urine Random <6.0 mg/dL (<=11.9)
[2024-09-11 13:28] LABS: Bilirubin Urine NEGATIVE (NEGATIVE); Blood Urine TRACE-I (NEGATIVE); Clarity Urine CLEAR (CLEAR); Color Urine LT. YELLOW (YELLOW); Glucose Urine UA NEGATIVE (NEGATIVE); Ketones Urine NEGATIVE (NEGATIVE); Leukocyte Esterase Urine NEGATIVE (NEGATIVE); Nitrite Urine NEGATIVE (NEGATIVE); Protein Urine NEGATIVE (NEG/TRACE); Specific Gravity Urine <=1.005 (1.005-1.025); Urobilinogen Urine 0.2 EU/dL (0.2-1.0)
[2024-09-11 13:35] LABS: Bacteria Urine NONE SEEN #/HPF (NONE SEEN); Cast Seen? SEEN #/LPF (NONE SEEN); Crystals Seen? None Seen #/HPF (None Seen); Hyaline Casts Urine RARE; Mucus Urine TRACE (NONE SEEN); RBC Urine 0-2 #/HPF (0-2); Squamous Epithelial Cell Urine RARE #/LPF (NONE/RARE); WBC Urine NONE SEEN #/HPF (NONE SEEN)
[2024-09-11 13:43] LABS: Uric Acid 6.2 mg/dL (2.6-6.0)
[2024-09-11 15:07] LABS: Percent Iron Saturation 21.4 %
[2024-09-15 12:08] LABS: PTH, Intact 69 pg/mL (15-65)
== END 2024-09-11 12:57 | disposition home or self-care (01) ==
LOC: LAB 12:59
PROVIDERS: PCP Family Medicine; Visit Provider Internal Medicine
DX: N25.81 Secondary hyperparathyroidism of renal origin (principal); N18.30 Chronic kidney disease, stage 3 unspecified; N18.9 Chronic kidney disease, unspecified; D63.1 Anemia in chronic kidney disease
CPT/HCPCS: 36415; 81001; 82306; 82570; 82728; 83540; 83550; 83735; 83970; 84156; 84550; 85027

== ENCOUNTER 2024-09-30 11:41 | Outpatient (OUT) | payer MEDICARE, MEDICAID, SELFPAY ==
--- OUTSIDE RECORDS SUMMARY | 2024-09-30 12:05 | XMS_ITS | CCD ---
Author Organization [facility] Care Team Providers Care Integrated Program Teacher Name Role Phone Felicitas Leong Unavailable Trevor Bray Unavailable EMIR, FELICITAS Admitting Unavailable EMIR, FELICITAS Attending Unavailable PETZNICK, DR VEGA Primary Care Unavailable EMIR, FELICITAS Consulting Unavailable EMIR, FELICITAS Admitting Unavailable EMIR, FELICITAS Attending Unavailable PETZNICK, DR VEGA Primary Care Unavailable EMIR, FELICITAS Consulting Unavailable PETZNICK, RADHA Admitting Unavailable PETZNICK, RADHA Attending Unavailable PETZNICK, DR VEGA Primary Care Unavailable PETZNICK, DR VEGA Consulting Unavailable Petznick Ashlie ALVA Unavailable Ashlie Melgar DO Primary Care Provider Ashlie Melgar DO Unavailable ASHLIE MELGAR Attending Unavailable ASHLIE MELGAR Referring Unavailable ASHLIE MELGAR Attending Unavailable Allergies Allergy Classification Reported Allergen(s) Allergy Type Date of Onset Reaction(s) Facility (8 sources) Phenytoin Drug Allergy 02-28-2023 [facility]aphyl[facility] Other (3 sources) Phenytoin Drug Allergy 02-28-2023 [facility] Healthcare Medications Current Medications Medication Drug Class(es) Dates Sig (Normalized) Sig (Original) acetaminophen 325 mg oral tablet (11 sources) Start: 08-26-2023 take 1 tablet by mouth every six hours Acetaminophen (Tylenol) 325 mg tablet Active 325 MG PO Every 6 hours August 26, 2023 12:00am [id number] 200 actuat albuterol 0.09 mg/actuat metered dose inhaler (3 sources) beta2-Adrenergic Agonist Start: 02-28-2023 take 2 puff(s) by inhalation every six hours albuterol HFA 90 mcg/act inhaler Indications: Simple chronic bronchitis (CMS/HCC) Inhale 2 puffs every 6 (six) hours. 18 g 02/28/2023 Active allopurinol 100 mg oral tablet (13 sources) Xanthine Oxidase Inhibitor Start: 08-13-2024 take 1 tablet by mouth once daily Allopurinol 100 mg tablet Active 100 MG PO Daily 90 August 13, 2024 12:00am Start: 08-26-2023 End: 08-07-2024 take 1 tablet by mouth once daily Allopurinol 100 mg tablet Discontinued 100 MG PO Daily August 26, 2023 12:00am August 07, 2024 11:19am take 1 tablet by hayley th once daily Allopurinol 100 MG TAKE 1 TABLET BY [...] aspirin 81 mg delayed release oral tablet (6 sources) Platelet Aggregation Inhibitor, Nonsteroidal Anti-inflammatory Drug Start: 08-26-2023 take 1 tablet by mouth once daily Aspirin 81 mg tablet,delayed release (DR/EC) Active 81 MG PO Daily August 26, 2023 12:00am Blood Glucose Monitoring Suppl (WEMS) w/Device kit (3 sources) Start: 03-31-2024 Blood Glucose Monitoring Suppl (WEMS) w/Device kit Indications: Type 2 diabetes mellitus with stage 4 chronic kidney disease, without long-term current use of insulin (CMS/HCC) Fsbs daily 1 kit 03/31/2024 Active linagliptin 5 mg oral tablet (2 sources) Dipeptidyl Peptidase 4 Inhibitor take 1 tablet by mouth every twenty-four hours lisinopril 20 mg oral tablet (11 sources) Angiotensin Converting Enzyme Inhibitor Start: 08-26-2023 take 1 tablet by mouth once daily Lisinopril 20 mg tablet Active 20 MG PO Daily May 6th, 2024 12:00am Start: 04-17-2016 take 1 tablet by hayley th every twenty-four hours Lisinopril 20 mg 1 tablet Orally Once a day Mar, Active pravastatin sodium 40 mg oral tablet (11 sources) HMG-CoA Reductase Inhibitor Start: 08-26-2023 take 1 tablet by mouth once daily Pravastatin 40 mg tablet Active 40 MG PO Daily August 26, 2023 12:00am take 1 tablet by hayley th every twenty-four hours Pravastatin Sodium 40 MG 1 tablet Orally Once a day Active 0.25 mg, 0.5 mg dose 1.5 ml semaglutide 1.34 mg/ml pen injector (6 sources) Start: 09-10-2024 Semaglutide 0. 25 mg or 0.5 mg(2 mg/1.5 mL) pen injector Active 0.5 MG SUBCUT every week September 10, 2024 1:42pm ) Start: 08-26-2023 End: 09-10-2024 Semaglutide 0.25 mg or 0.5 m g(2 mg/1.5 mL) pen injector Discontinued MG SUBCUT As Directed August 26, 2023 12:00am September 10, 2024 1:43pm ) Ozempic (0.25 or 0.5 MG/DOSE) 2 MG/1.5ML as directed Subcutaneous Active Semaglutide,0.25 or 0.5MG/DOS, (Ozempic, 0.25 or 0.5 MG/DOSE,) 2 MG/3ML solution pen-injector (3 sources) Start: 06-21-2023 End: 06-20-2024 Semaglutide,0.25 or [...] Orally Once a day Active Januvia Active Completed/Discontinued Medications Medication Drug Class(es) Dates Sig (Normalized) Sig (Original) ergocalciferol 1.25 mg oral capsule (8 sources) Provitamin D2 Compound Start: 08-26-2023 End: 08-07-2024 take 1 capsule by mouth every week Ergocalciferol (Vitamin D2) 1,250 mcg (50,000 unit) capsule Discontinued 1250 MCG PO every week August 26, 2023 12:00am August 07, 2024 11:19am take 1 capsule by mouth every we ek Ergocalciferol [id number] UNIT 1 capsule Orally Q week for 90 day(s) Active furosemide 20 mg oral tablet (16 sources) Loop Diuretic Start: 08-26-2023 take 40 mg by mouth twice daily Furosemide Active 40 MG PO Twice daily August 26, 2023 12:00am Start: 02-28-2023 End: 01-22-2024 take 2 tablets by mouth twice daily Furosemide 20 mg tablet Discontinued 40 MG PO Twice daily August 26, 2023 12:00am January 22, 2024 5:55pm take 2 tablets by mo uth twice daily Furosemide 20 MG TAKE 2 TABLETS BY MOUTH TWICE A DAY for 90 Active take 2 tablets by mo uth once daily in the morning, then take 1 tablet by mouth in the evening Furosemide 20 MG TAKE 2 TABLETS BY MOUTH EVERY MORNING AND 1 TABLET IN THE EVENING for 90 Active predniSONE 20 mg oral tablet (1 source) Start: 08-07-2024 End: 09-10-2024 take 2 tablets by mouth once daily, then take 1 tablet by mouth once daily Prednisone 20 mg tablet Discontinued 0 PO .COMPLEX August 07, 2024 12:00am September 10, 2024 1:42pm Take 2 tablets p.o. daily x 4 days, then take 1 tablet p.o. daily x 4 days. Problems Active Problems Problem Classification Problem Date Documented Date Episodic/Chronic Abdominal hernia (2 sources) Hiatal hernia; Translations: [Diaphragmatic hernia without obstruction or gangrene] 08-07-2024 Episodic Cancer of cervix (2 sources) Malignant tumor of cervix; Translations: [Malignant neoplasm of cervix uteri, unspecified] 08-07-2024 Chronic Cardiac dysrhythmias (8 sources) Atrial fibrillation; Translations: [Unspecified atrial fibrillation] Onset: 08-07-2024 Chronic Chronic kidney disease (19 sources) Chronic kidney disease stage 3; Translations: [Chronic kidney disease, stage 3 (moderate)] Onset: 3 Resolved: 4 08-26-2023 Chronic Chronic kidney disease (9 sources) Chronic kidney disease; Translations: [Chronic kidney disease, stage III (moderate)] Onset: 1 Resolved: 2 Chronic obstructive pulmonary disease and bronchiectasis (5 sources) Simple chronic bronchitis; Translations: [Simple chronic bronchitis] Onset: 3 03-31-2024 Chronic Congestive heart failure; nonhypertensive (5 sources) Chronic diastolic heart failure; Translations: [Chronic diastolic (congestive) heart failure] Onset: 3 03-31-2024 Chronic Deficiency and other anemia (7 sources) Anemia of renal disease; Translations: [Anemia in chronic kidney disease] 08-07-2024 Chronic Deficiency and other anemia (2 sources) Anemia in chronic kidney disease; Translations: [ANEMIA IN CHRONIC KIDNEY DISEASE] Onset: 2 Resolved: 2 Chronic Diabetes mellitus with complications (20 sources) Disorder of kidney due to diabetes mellitus; Translations: [Type 2 diabetes mellitus with diabetic chronic kidney disease] Onset: 1 Resolved: 3 Chronic Disorders of lipid metabolism (12 sources) Pure hypercholesterolemia, unspecified; Translations: [Pure hypercholesterolemia] Onset: 2 Chronic Essential hypertension (7 sources) Essential hypertension; Translations: [Essential (primary) hypertension] Onset: 3 03-31-2024 Chronic Genitourinary symptoms and ill-defined conditions (13 sources) Hematuria, unspecified; Translations: [Microscopic hematuria] Onset: 1 Resolved: 2 Episodic Gout and other crystal arthropathies (2 sources) Gouty arthritis of toe; Translations: [Gout, unspecified] 08-07-2024 Chronic Hypertension with complications and secondary hypertension (19 sources) Chronic kidney disease due to hypertension; Translations: [Hypertensive chronic kidney disease with stage 1 through stage 4 chronic kidney disease, or unspecified chronic kidney disease] Onset: 1 Resolved: 2 Chronic Neoplasms of unspecified nature or uncertain behavior (2 sources) Neoplasm of ovary; Translations: [Neoplasm of unspecified behavior of other genitourinary organ] 08-07-2024 Episodic Nutritional deficiencies (18 sources) Vitamin D deficiency; Translations: [Vitamin D deficiency, unspecified] Onset: 1 Resolved: 2 Chronic Nutritional deficiencies (1 source) Iron deficiency Episodic Other and unspecified benign neoplasm (5 sources) Adrenal adenoma; Translations: [Benign neoplasm of unspecified adrenal gland] Onset: 3 02-28-2023 Episodic Other diseases of kidney and ureters (8 sources) Secondary hyperparathyroidism; Translations: [Secondary hyperparathyroidism of renal origin] 08-26-2023 Chronic Other diseases of kidney and ureters (7 sources) Secondary hyperparathyroidism of renal origin; Translations: [Secondary hyperparathyroidism (of renal origin)] Onset: 1 Resolved: 2 Chronic Other diseases of kidney and ureters (5 sources) Hyperparathyroidism due to renal insufficiency; Translations: [Secondary hyperparathyroidism of renal origin] Onset: 3 03-31-2024 Chronic Other endocrine disorders (7 sources) Adrenal mass; Translations: [Disorder of adrenal gland, unspecified] 08-07-2024 Chronic Other hereditary and degenerative nervous system conditions (3 sources) Essential tremor; Translations: [Essential tremor] Onset: 3 02-28-2023 Chronic Other liver diseases (5 sources) Fatty (change of) liver, not elsewhere classified; Translations: [Other chronic nonalcoholic liver disease] Onset: 3 03-31-2024 Chronic Other lower respiratory disease (7 sources) Multiple nodules of lung; Translations: [Other nonspecific abnormal finding of lung field] 08-07-2024 Episodic Other nutritional; endocrine; and metabolic disorders (7 sources) Body mass index 40+ - severely obese; Translations: [Body mass index (BMI) 40.0-44.9, adult] 08-07-2024 Chronic Other nutritional; endocrine; and metabolic disorders (7 sources) Morbid obesity; Translations: [Morbid (severe) obesity due to excess calories] 08-07-2024 Chronic Other nutritional; endocrine; and metabolic disorders (7 sources) Hyperuricemia without signs of inflammatory arthritis and tophaceous disease; Translations: [Other abnormal blood chemistry] Onset: 1 Resolved: 2 Episodic Other nutritional; endocrine; and metabolic disorders (6 sources) Hyperuricemia; Translations: [Hyperuricemia without signs of inflammatory arthritis and tophaceous disease] Onset: 4 08-26-2023 Episodic Peripheral and visceral atherosclerosis (12 sources) Peripheral vascular disease, unspecified; Translations: [Intermittent claudication] Onset: 2 Resolved: 2 Chronic Unclassified (1 source) CHRN KIDNEY DISEASE STG 3 UNSP; Translations: [CHRN KIDNEY DISEASE STG 3 UNSP] Onset: 2 Past or Other Problems Problem Classification Problem Date Documented Da te Episodic/Chronic Other nutritional; endocrine; and metabolic disorders (3 sources) Severe obesity; Translations: [Morbid (severe) obesity due to excess calories] Onset: 02-28-2023 Resolved: 09-24-2023 09-24-2023 Chronic Results Test Name Value Interpretation Reference Range Facility [facility] CBC WITH PLATELET NO DI FFERENTIALon 04-20-2024 Erythrocyte distribution width (RBC) [Ratio] 12.6 % 11.0 - 15.0 % [facility] Hematocrit (Bld) [Volume fraction] 37 % 36.0 - 48.0 % [facility] Hemoglobin (Bld) [Mass/Vol] 12.1 g/dL 12.0 - 16.0 g/dL [facility] MCH (RBC) [Entitic mass] 31.8 pg 26.7 - 34.[address] [facility] MCHC (RBC) [Mass/Vol] 32.7 g/dL 29.9 - 35.2 g/dL [facility] MCV (RBC) [Entitic vol] 97.4 fL 81.0 - 99.[address] [facility] Platelet mean volume (Bld) [Entitic vol] 10.7 fL 9.5 - 13.5 fL [facility] PLT 283 [facility] TB RBC 3.8 Low [facility] TB WBC 8 [facility] No Panel Informationon 04-20 Interpretation and review of laboratory results Abnormal [facility] TBH URINE T PROTEIN CREAT RA TIOon 04-20-2024 CREATININE URINE RANDOM 180.12 mg/dL 20.00 - 300.00 mg/dL [facility] Protein (U) [Mass/Vol] 27 mg/dL High NINF - 11.9 mg/dL [facility] PROTEIN CREATININE RATIO URINE 0.15 [facility] Automated epithelial cells c ount in urine sediment (number/area)on 08-21-2023 Epithelial cells Auto (Urine sed) [#/Area] RARE #/LPF NONE/RARE [facility] Automated leukocytes count i n urine sediment (number/area)on 08-21-2023 WBC Auto (Urine sed) [#/Area] 0-2 #/HPF 0-2 [facility] Automated urine specific gra vity by refractometryon 08-21-2023 Specific gravity Refractometry automated (U) [Rel density] 1.010 1.005-1.025 [facility] Bilirubin Auto test strip (U ) [Mass/Vol]on 08-21-2023 Bilirubin (U) [Mass/Vol] Negative NEGATIVE [facility] Casts typing in urine sedime nt by light microscopyon 08-21-2023 Casts LM Nom (Urine sed) NONE SEEN #/LPF NONE SEEN [facility] Erythrocyte distribution wid th Auto (RBC) [Ratio]on 08-21-2023 Erythrocyte distribution width (RBC) [Ratio] 12.8 % 11.0-15.0 [facility] Estimated glomerular filtrat ion rate (GFR) non- Americanon 08-21-2023 GFR/1.73 sq M.predicted among non-blacks MDRD (S/P/Bld) [Vol rate/Area] 29 mL/min/{1.73_m2} >=60 [facility] Hematocrit Auto (Bld) [Volum e fraction]on 08-21-2023 Hematocrit (Bld) [Volume fraction] 37.0 % 36.0-48.0 [facility] Hemoglobin [Mass/volume] in Bloodon 08-21-2023 Hemoglobin (Bld) [Mass/Vol] 12.3 g/dL 12.0-16.0 [facility] Ketones Auto test strip (U) [Mass/Vol]on 08-21-2023 Ketones (U) [Mass/Vol] Negative NEGATIVE [facility] Laboratory - Chemistry and C hemistry - challengeon 08-21-2023 Albumin [Mass/Vol] 3.5 g/dL 3.4-5.0 [facility] Calcium [Mass/Vol] 9.3 mg/dL 8.5-10.1 [facility] Chloride [Moles/Vol] 101 mmol/L 98-107 [facility] CO2 [Moles/Vol] 25.6 mmol/L 21.0-32.0 [facility] Creatinine [Mass/Vol] 1.70 mg/dL 0.55-1.02 [facility] GFR/1.73 sq M.predicted MDRD (S/P/Bld) [Vol rate/Area] 35 mL/min/{1.73_m2} >=60 [facility] Glucose [Mass/Vol] 113 mg/dL 74-106 [facility] Magnesium [Mass/Vol] 2.3 mg/dL 1.8-2.4 [facility] Potassium [Moles/Vol] 3.9 mmol/L 3.5-5.1 [facility] Sodium [Moles/Vol] 138 mmol/L 136-145 [facility] Urate [Mass/Vol] 9.2 mg/dL 2.6-6.0 [facility] Urea nitrogen [Mass/Vol] 27.0 mg/dL 7.0-18.0 [facility] Urea nitrogen/Creatinine [Mass ratio] 15.9 mg/mg [facility] Laboratory - Urinalysison Protein (U) [Mass/Vol] 12.0 mg/dL <=11.9 [facility] Leukocytes [#/volume] correc sumit for nucleated erythrocytes in Blood by Automated counon 08-21-2023 WBC corrected for nucl RBC Auto (Bld) [#/Vol] 8.0 10 3/uL 4.0-11.0 [facility] MCH Auto (RBC) [Entitic mass ]on 08-21-2023 MCH (RBC) [Entitic mass] 32.1 pg 26.7-34.0 [facility] MCHC Auto (RBC) [Mass/Vol]on 08-21-2023 MCHC (RBC) [Mass/Vol] 33.2 g/dL 29.9-35.2 [facility] MCV Auto (RBC) [Entitic vol] on 08-21-2023 MCV (RBC) [Entitic vol] 96.6 fL 81.0-99.0 [facility] Mucus LM Ql (Urine sed)on Mucus Ql (Urine sed) TRACE NONE SEEN [facility] No Panel Informationon 08-20 25-Hydroxy Vitamin D Total 30.3 ng/mL [facility] Comment on above: <20 ng/mL Vit D defi cient20-<30 ng/mL Vit D [id number] ng/mL Vit D sufficient>100 ng/mL Potential Toxicity Parathyroid Hormone (Intact) 76 pg/mL 15-65 [facility] Comment on above: Performed at: [facility] [address] [place] [id number] Director: Ben Wilde PhD, Phone: [phone] Phosphorus Level 3.6 mg/dL 2.6-4.7 [facility] Urine Random Creatinine 98.94 mg/dL 20.00-300.00 [facility] Platelet mean volume Auto (B ld) [Entitic vol]on 08-21-2023 Platelet mean volume (Bld) [Entitic vol] 10.0 fL 9.5-13.5 [facility] Platelets Auto (Bld) [#/Vol] on 08-21-2023 Platelets (Bld) [#/Vol] 307 10 3/uL 150-450 [facility] Protein Auto test strip (U) [Mass/Vol]on 08-21-2023 Protein (U) [Mass/Vol] Negative NEG/TRACE [facility] RBC Auto (Bld) [#/Vol]on RBC (Bld) [#/Vol] 3.83 10 6/uL 4.20-5.40 [facility] Serum or plasma anion gap de terminationon 08-21-2023 Anion gap [Moles/Vol] 15.3 mmol/L [facility] Specific gravity Auto test s trip (U) [Rel density]on 08-21-2023 Specific gravity (U) [Rel density] CLEAR CLEAR [facility] Urine bacteria detection by automated methodon 08-21-2023 Bacteria Auto Ql (U) NONE SEEN #/HPF NONE SEEN [facility] Urine coloron 08-21-2023 Color (U) LT. YELLOW YELLOW [facility] Urine glucose measurement by test strip (mass/volume)on 08-21-2023 Glucose Test strip (U) [Mass/Vol] Negative NEGATIVE [facility] Urine hemoglobin detection b y automated test stripon 08-21-2023 Hemoglobin Auto test strip Ql (U) TRACE-I NEGATIVE [facility] Urine nitrite detection by a utomated test stripon 08-21-2023 Nitrite Auto test strip Ql (U) Negative NEGATIVE [facility] Urine protein/creatinine rat ioon 08-21-2023 Protein/Creatinine (U) [Ratio] 0.12 [facility] Urine sediment crystal ident ification by light microscopyon 08-21-2023 Crystals LM Nom (Urine sed) None Seen #/HPF None Seen [facility] Urine sediment leukocyte cou nt by microscopy (number/high power field)on 08-21-2023 WBC LM.HPF (Urine sed) [#/Area] NONE SEEN #/HPF NONE SEEN [facility] Urobilinogen Auto test strip (U) [Mass/Vol]on 08-21-2023 Urobilinogen Qn (U) 1.0 {Radha'U}/dL 0.2-1.0 [facility] pH Auto test strip (U)on pH (U) 6.0 [pH] 5.0-9.0 [facility] PTH INTACTon 03-30-2022 PTH, Intact 52 pg/mL Normal 15-65 [facility] Comment on above: Performed By: #### M G, RENAL, URIC #### [facility] [address] [address] [address] Manda Jane FERRITINon 03-29-2022 Ferritin [Mass/Vol] 33.0 ng/mL Normal 8.0-252.0 [facility] Comment on above: Performed By: #### F ERR, VITAD, FETIBC #### [facility] [address] [place], [place] [address] Dr. Manda Jane HEMOGRAM AND PLATELon 2021 Hematocrit (Bld) [Volume fraction] 38.5 % Normal 36.0-48.0 [facility] Comment on above: Performed By: #### M G, RENAL, URIC #### [facility] [address] [place] [address] Dr. Manda Jane Hemoglobin (Bld) [Mass/Vol] 12.5 g/dL Normal 12.0-16.0 [facility] Comment on above: Performed By: #### M G, RENAL, URIC #### [facility] [address] [place] [address] Dr. Manda Jane MCH (RBC) [Entitic mass] 30.9 pg Normal 26.7-34.0 [facility] Comment on above: Performed By: #### M G, RENAL, URIC #### [facility] [address] [place] [address] Dr. Manda Jane MCHC (RBC) [Mass/Vol] 32.5 g/dL Normal 29.9-35.2 [facility] Comment on above: Performed By: #### M G, RENAL, URIC #### [facility] [address] [place] [address] Dr. Manda Jane MCV (RBC) [Entitic vol] 95.1 fL Normal 81.0-99.0 [facility] Comment on above: Performed By: #### M G, RENAL, URIC #### [facility] [address] [place] [address] Dr. Manda Jane PLT 335 103/ul Normal 150-450 [facility] Comment on above: Performed By: #### M G, RENAL, URIC #### [facility] [address] [place] [address] Dr. Manda Jane RBC 4.05 106/ul Critically low 4.20-5.40 [facility] Comment on above: Performed By: #### M G, RENAL, URIC #### [facility] [address] [place] [address] Dr. Manda Jane WBC 8.8 103/ul Normal 4.0-11.0 [facility] Comment on above: Performed By: #### M G, RENAL, URIC #### [facility] [address] [place] [address] Dr. Manda Jane IRON AND TIBCon 03-29-2022 % SATURATION 15.9 % Normal [facility] Comment on above: Performed By: #### F ERR, VITAD, FETIBC #### [facility] [address] [place] [address] Dr. Manda Jane Iron [Mass/Vol] 54.0 ug/dL Normal 50.0-170.0 [facility] Comment on above: Performed By: #### F ERR, VITAD, FETIBC #### [facility] [address] [place] [address] Dr. Manda Jane TIBC DIRECT 339.0 ug/dL Normal 250.0-450.0 [facility] Comment on above: Performed By: #### F ERR, VITAD, FETIBC #### [facility] [address] [place] [address] Dr. Manda Jane MAGNESIUMon 03-29-2022 Magnesium [Mass/Vol] 2.0 mg/dL Normal 1.8-2.4 [facility] Comment on above: Performed By: #### M G, RENAL, URIC #### [facility] [address] [place] [address] Dr. Manda Jane RENAL FUNCTION PANELon 03-29 Albumin [Mass/Vol] 3.6 g/dL Normal 3.4-5.0 [facility] Comment on above: Performed By: #### M G, RENAL, URIC #### [facility] [address] [place] [address] Dr. Manda Jane Calcium [Mass/Vol] 9.2 mg/dL Normal 8.5-10.1 [facility] Comment on above: Performed By: #### M G, RENAL, URIC #### [facility] [address] [place] [address] Dr. Manda Jane Chloride [Moles/Vol] 101 mmol/L Normal 98-107 [facility] Comment on above: Performed By: #### M G, RENAL, URIC #### [facility] [address] [place] [address] Dr. Manda Jane CO2 [Moles/Vol] 28.5 mmol/L Normal 21.0-32.0 [facility] Comment on above: Performed By: #### M G, RENAL, URIC #### [facility] [address] [address] [address] Manda Jane Creatinine [Mass/Vol] 1.36 mg/dL Critically high 0.55-1.02 [facility] Comment on above: Performed By: #### M G, RENAL, URIC #### [facility] [address] [address] [address] Manda Jane EGFR-AF BELGIAN 46 mL/min/1.73m2 Critically low >=60 [facility] Comment on above: Performed By: #### M G, RENAL, URIC #### [facility] [facility] [address] [place] [address] Dr. Manda Jane EGFR-NON AF BELGIAN 38 mL/min/1.73m2 Critically low >=60 [facility] Comment on above: Performed By: #### M G, RENAL, URIC #### [facility] [address] [address] [address] Manda Jane Glucose [Mass/Vol] 137 mg/dL Critically high 74-106 T [facility] Comment on above: Performed By: #### M G, RENAL, URIC #### [facility] [address] [address] [address] Manda Jane Phosphate [Mass/Vol] 2.3 mg/dL Critically low 2.6-4.7 [facility] Comment on above: Performed By: #### M G, RENAL, URIC #### [facility] [address] [address] [address] Manda Jane Potassium [Moles/Vol] 4.0 mmol/L Normal 3.5-5.1 [facility] Comment on above: Performed By: #### M G, RENAL, URIC #### [facility] [address] [address] [address] Manda Jane Sodium [Moles/Vol] 135 mmol/L Critically low 136-145 Th [facility] Comment on above: Performed By: #### M G, RENAL, URIC #### [facility] [address] [address] [address] Manda Jane Urea nitrogen [Mass/Vol] 12.0 mg/dL Normal 7.0-18.0 [facility] Comment on above: Performed By: #### M G, RENAL, URIC #### [facility] [address] [place] [address] Dr. Manda Jane UA RANDOM W/MICROSCOPICon BACTERIA NONE SEEN Normal NONE SEEN [facility] Comment on above: Performed By: #### M G, RENAL, URIC #### [facility] [address] [place] [address] Dr. Manda Jane Bilirubin Ql (U) Negative Normal NEGATIVE The [facility] Comment on above: Performed By: #### M G, RENAL, URIC #### [facility] [address] [place] [address] Dr. Manda Jane CAST NONE SEEN Normal NONE SEEN [facility] Comment on above: Performed By: #### M G, RENAL, URIC #### [facility] [address] [place] [address] Dr. Manda Jane Clarity (U) CLEAR Normal CLEAR The [facility] Comment on above: Performed By: #### M G, RENAL, URIC #### [facility] [address] [place] [address] Dr. Manda Jane Color (U) LT. YELLOW Normal YELLOW The [facility] Comment on above: Performed By: #### M G, RENAL, URIC #### [facility] [address] [place] [address] Dr. Manda Jane Crystals LM Nom (Urine sed) NONE SEEN Normal NONE SEEN The [facility] Comment on above: Performed By: #### M G, RENAL, URIC #### [facility] [address] [place] [address] Dr. Manda Jane Epithelial cells LM Ql (Urine sed) FEW Abnormal NONE SEEN /RARE The [facility] Comment on above: Performed By: #### M G, RENAL, URIC #### [facility] [address] [place] [address] Dr. Manda Jane Glucose Ql (U) Negative Normal NEGATIVE The [facility] Comment on above: Performed By: #### M G, RENAL, URIC #### [facility] [address] [address] [address] Manda Jane Hemoglobin Ql (U) MODERATE Abnormal NEGATIVE The [facility] Comment on above: Performed By: #### M G, RENAL, URIC #### [facility] [address] [address] [address] Manda Jane Ketones Ql (U) Negative Normal NEGATIVE The [facility] Comment on above: Performed By: #### M G, RENAL, URIC #### [facility] [address] [address] [address] Manda Jane LEUKOCYTES Negative Normal NEGATIVE [facility] Comment on above: Performed By: #### M G, RENAL, URIC #### [facility] [address] [address] [address] Manda Jane MUCOUS NONE SEEN Normal NONE SEEN The [facility] Comment on above: Performed By: #### M G, RENAL, URIC #### [facility] [address] [address] [address] Manda Jane Nitrite Ql (U) Negative Normal NEGATIVE The [facility] Comment on above: Performed By: #### M G, RENAL, URIC #### [facility] [address] [place] [address] Dr. Manda Jane pH (U) 5.5 [pH] Normal 5-9 The [facility] Comment on above: Performed By: #### M G, RENAL, URIC #### [facility] [address] [address] [address] Manda Jane RBC 5-10 Abnormal 0-2 The [facility] Comment on above: Performed By: #### M G, RENAL, URIC #### [facility] [address] [place] [address] Dr. Manda Jane SPEC GRAVITY 1.025 Normal 1.005-<=1.025 The [facility] Comment on above: Performed By: #### M G, RENAL, URIC #### [facility] [address] [place] [address] Dr. Manda Jane UA PROTEIN Negative Normal NEGATIVE/ TRACE The [facility] Comment on above: Performed By: #### M G, RENAL, URIC #### [facility] [address] [address] [address] Manda Jane Urobilinogen Qn (U) 0.2 {Radha'U}/dL Normal 0.2 - 1. 0 [facility] Comment on above: Performed By: #### M G, RENAL, URIC #### [facility] [address] [place] [address] Dr. Manda Jane WBC NONE SEEN Normal NONE SEEN The [facility] Comment on above: Performed By: #### M G, RENAL, URIC #### [facility] [address] [place] [address] Dr. Manda Jane URIC ACID SERUMon 03-29-2022 Urate [Mass/Vol] 7.0 mg/dL Critically high 2.6-6.0 [facility] Comment on above: Performed By: #### M G, RENAL, URIC #### [facility] [address] [place] [address] Dr. Manda Jane URINE T PROTEIN CREAT RATIOo n 03-29-2022 Protein (U) [Mass/Vol] 11.0 mg/dL Normal <=12.0 [facility] Comment on above: Performed By: #### U RTPCR #### [facility] [address] [place] [address] Dr. Manda Jane UR PROT CREAT RAT 0.23 Normal [address] [facility] Comment on above: Performed By: #### U RTPCR #### [facility] [address] [place] [address] Dr. Manda Jane URINE CREAT 48.77 mg/dL Normal 20.00-300.00 [facility] Comment on above: Performed By: #### U RTPCR #### [facility] [address] [place] [address] Dr. Manda Jane VITAMIN D 25 OHon 03-29-2022 VIT D 25-OH 29.9 ng/mL Normal The [facility] Comment on above: Performed By: #### F ERR, VITAD, FETIBC #### [facility] [address] [address] [address] Manda Jane VIT D RANGES SEE BELOW Normal [facility] Comment on above: Result Comment: <20 ng/mL Vit D deficient 20 - <30 ng/mL Vit D insufficient 30 - 100 ng/mL Vit D sufficient >100 ng/mL Potential Toxicity Performed By: #### F ERR, VITAD, FETIBC #### [facility] [address] [address] [address] Manda Jane LIPID PROFILEon 11-28-2021 CHOL-HDL RATIO NORM SEE BELOW Normal [facility] Comment on above: Result Comment: 3.3 - 4.4 LOW RISK 4.4 - 7.1 AVERAGE RISK 7.1 - 11.0 MODERATE RISK >11.0 HIGH RISK Performed By: #### L IPID, CMP #### [facility] [address] [address] [address] Manda Jane Cholesterol [Mass/Vol] 144 mg/dL Normal <=200 [facility] Comment on above: Performed By: #### L IPID, CMP #### [facility] [address] [address] [address] Manda Jane Cholesterol in HDL [Mass/Vol] 37 mg/dL Critically low 40-60 [facility] Comment on above: Performed By: #### L IPID, CMP #### [facility] [address] [address] [address] Manda Jane Cholesterol in LDL [Mass/Vol] 73.4 mg/dL Normal [facility] Comment on above: Performed By: #### L IPID, CMP #### [facility] [address] [address] [address] Manda Jane Cholesterol.total/Ch olesterol in HDL [Mass ratio] 3.9 {ratio} Normal [facility] Comment on above: Performed By: #### L IPID, CMP #### [facility] [address] [address] [address] Manda Jane HDL NORMAL > or = 60 mg/dl - LOW CARDIOVASCULAR RISK <40 mg/dl - HIGH CARDIOVASCULAR RISK Normal [facility] Comment on above: Performed By: #### L IPID, CMP #### [facility] [address] [address] [address] Manda Jane LDL CALC NORMAL SEE BELOW Normal [facility] Comment on above: Result Comment: <100 mg/dl OPTIMAL 100 - 129 mg/dl NEAR OR ABOVE OPTIMAL 130 - 159 mg/dl BORDERLINE HIGH 160 - 189 mg/dl HIGH >190 mg/dl VERY HIGH Performed By: #### L IPID, CMP #### [facility] [address] [address] [address] Manda Jane Triglyceride [Mass/Vol] 168 mg/dL Critically high <=150 [facility] Comment on above: Performed By: #### L IPID, CMP #### [facility] [address] [address] [address] Manda Jane VLDL CALC 33.6 mg/dL Normal [facility] Comment on above: Performed By: #### L IPID, CMP #### [facility] [address] [address] [address] Manda Jane PROF 14(COMP METB)on 022 Albumin [Mass/Vol] 3.6 g/dL Normal 3.4-5.0 [facility] Comment on above: Performed By: #### L IPID, CMP #### [facility] [address] [address] [address] Manda Jane Albumin/Globulin [Mass ratio] 1.1 {ratio} Normal [facility] Comment on above: Performed By: #### L IPID, CMP #### [facility] [address] [place] [address] Dr. Manda Jane ALP [Catalytic activity/Vol] 82 U/L Normal 46-116 [facility] Comment on above: Performed By: #### L IPID, CMP #### [facility] [address] [address] [address] Manda Jane ALT [Catalytic activity/Vol] 8 U/L Critically low 14-59 [facility] Comment on above: Performed By: #### L IPID, CMP #### [facility] [address] [address] [address] Manda Jane Anion gap [Moles/Vol] 16.2 mmol/L Normal [facility] Comment on above: Performed By: #### L IPID, CMP #### [facility] [address] [address] [address] Manda Jane AST [Catalytic activity/Vol] 7 U/L Critically low 15-37 [facility] Comment on above: Performed By: #### L IPID, CMP #### [facility] [address] [address] [address] Manda Jane Bilirubin [Mass/Vol] 0.3 mg/dL Normal 0.2-1.0 [facility] Comment on above: Performed By: #### L IPID, CMP #### [facility] [address] [address] [address] Manda Jane Calcium [Mass/Vol] 8.9 mg/dL Normal 8.5-10.1 [facility] Comment on above: Performed By: #### L IPID, CMP #### [facility] [address] [address] [address] Manda Jane Chloride [Moles/Vol] 103 mmol/L Normal 98-107 [facility] Comment on above: Performed By: #### L IPID, CMP #### [facility] [address] [address] [address] Manda Jane CO2 [Moles/Vol] 26.0 mmol/L Normal 21.0-32.0 [facility] Comment on above: Performed By: #### L IPID, CMP #### [facility] [address] [address] [address] Manda Jane Creatinine [Mass/Vol] 1.79 mg/dL Critically high 0.55-1.02 [facility] Comment on above: Performed By: #### L IPID, CMP #### [facility] [address] [address] [address] Manda Jane EGFR-AF BELGIAN 33 mL/min/1.73m2 Critically low >=60 [facility] Comment on above: Performed By: #### L IPID, CMP #### [facility] [address] [address] [address] Manda Jane EGFR-NON AF BELGIAN 28 mL/min/1.73m2 Critically low >=60 [facility] Comment on above: Performed By: #### L IPID, CMP #### [facility] [address] [address] [address] Manda Jane Globulin (S) [Mass/Vol] 3.3 g/dL Normal [facility] Comment on above: Performed By: #### L IPID, CMP #### [facility] [address] [address] [address] Manda Jane Glucose [Mass/Vol] 175 mg/dL Critically high 74-106 [facility] Comment on above: Performed By: #### L IPID, CMP #### [facility] [address] [place] [address] Dr. Manda Jane Potassium [Moles/Vol] 4.2 mmol/L Normal 3.5-5.1 [facility] Comment on above: Performed By: #### L IPID, CMP #### [facility] [address] [place] [address] Dr. Manda Jane Protein [Mass/Vol] 6.9 g/dL Normal 6.4-8.2 The [facility] Comment on above: Performed By: #### L IPID, CMP #### [facility] [address] [place] [address] Dr. Manda Jane Sodium [Moles/Vol] 141 mmol/L Normal 136-145 [facility] Comment on above: Performed By: #### L IPID, CMP #### [facility] [address] [place] [address] Dr. Manda Jane Urea nitrogen [Mass/Vol] 20.0 mg/dL Critically high 7.0-18.0 [facility] Comment on above: Performed By: #### L IPID, CMP #### [facility] [address] [place] [address] Dr. Manda Jane Urea nitrogen/Creatinine [Mass ratio] 11.2 mg/mg Normal [facility] Comment on above: Performed By: #### L IPID, CMP #### [facility] [address] [place] [address] Dr. Manda Jane PTH INTACTon 09-08-2021 PTH, Intact 55 pg/mL Normal 15-65 The [facility] Comment on above: Performed By: #### M G, RENAL, URIC #### [facility] [address] [address] [address] Manda Jane HEMOGRAM AND PLATELon 2021 Hematocrit (Bld) [Volume fraction] 35.0 % Critically low 36.0-48.0 [facility] Comment on above: Performed By: #### M G, RENAL, URIC #### [facility] [address] [place] [address] Dr. Manda Jane Hemoglobin (Bld) [Mass/Vol] 11.5 g/dL Critically low 12.0-16.0 [facility] Comment on above: Performed By: #### M G, RENAL, URIC #### [facility] [address] [place] [address] Dr. Manda Jane MCH (RBC) [Entitic mass] 31.3 pg Normal 26.7-34.0 [facility] Comment on above: Performed By: #### M G, RENAL, URIC #### [facility] [address] [place] [address] Dr. Manda Jane MCHC (RBC) [Mass/Vol] 32.9 g/dL Normal 29.9-35.2 The [facility] Comment on above: Performed By: #### M G, RENAL, URIC #### [facility] [address] [address] [address] Manda Jane MCV (RBC) [Entitic vol] 95.1 fL Normal 81.0-99.0 The [facility] Comment on above: Performed By: #### M G, RENAL, URIC #### [facility] [address] [address] [address] Manda Jane PLT 269 103/ul Normal 150-450 The [facility] Comment on above: Performed By: #### M G, RENAL, URIC #### [facility] [address] [address] [address] Manda Jane RBC 3.68 106/ul Critically low 4.20-5.40 [facility] Comment on above: Performed By: #### M G, RENAL, URIC #### [facility] [address] [address] [address] Manda Jane WBC 8.2 103/ul Normal 4.0-11.0 The [facility] Comment on above: Performed By: #### M G, RENAL, URIC #### [facility] [address] [address] [address] Manda Jane MAGNESIUMon 09-07-2021 Magnesium [Mass/Vol] 2.1 mg/dL Normal 1.8-2.4 The [facility] Comment on above: Performed By: #### M G, RENAL, URIC #### [facility] [address] [address] [address] Manda Jane RENAL FUNCTION PANELon 09-07 Albumin [Mass/Vol] 3.5 g/dL Normal 3.4-5.0 [facility] Comment on above: Performed By: #### M G, RENAL, URIC #### [facility] [address] [place] [address] Dr. Manda Jaen Calcium [Mass/Vol] 8.9 mg/dL Normal 8.5-10.1 The [facility] Comment on above: Performed By: #### M G, RENAL, URIC #### [facility] [address] [place] [address] Dr. Manda Jane Chloride [Moles/Vol] 100 mmol/L Normal 98-107 The [facility] Comment on above: Performed By: #### M G, RENAL, URIC #### [facility] [address] [place] [address] Dr. Manda Jane CO2 [Moles/Vol] 25.9 mmol/L Normal 21.0-32.0 The [facility] Comment on above: Performed By: #### M G, RENAL, URIC #### [facility] [address] [address] [address] Manda Jane Creatinine [Mass/Vol] 1.57 mg/dL Critically high 0.55-1.02 [facility] Comment on above: Performed By: #### M G, RENAL, URIC #### [facility] [address] [address] [address] Manda Jane EGFR-AF BELGIAN 39 mL/min/1.73m2 Critically low >=60 [facility] Comment on above: Performed By: #### M G, RENAL, URIC #### [facility] [address] [address] [address] Manda Jane EGFR-NON AF BELGIAN 32 mL/min/1.73m2 Critically low >=60 [facility] Comment on above: Performed By: #### M G, RENAL, URIC #### [facility] [address] [place] [address] Dr. Manda Jane Glucose [Mass/Vol] 183 mg/dL Critically high 74-106 [facility] Comment on above: Performed By: #### M G, RENAL, URIC #### [facility] [address] [address] [address] Manda Jane Phosphate [Mass/Vol] 2.9 mg/dL Normal 2.6-4.7 [facility] Comment on above: Performed By: #### M G, RENAL, URIC #### [facility] [address] [address] [address] Manda Jane Potassium [Moles/Vol] 4.4 mmol/L Normal 3.5-5.1 [facility] Comment on above: Performed By: #### M G, RENAL, URIC #### [facility] [address] [address] [address] Manda Jane Sodium [Moles/Vol] 136 mmol/L Normal 136-145 [facility] Comment on above: Performed By: #### M G, RENAL, URIC #### [facility] [address] [address] [address] Manda Jane Urea nitrogen [Mass/Vol] 25.0 mg/dL Critically high 7.0-18.0 The [facility] Comment on above: Performed By: #### M G, RENAL, URIC #### [facility] [address] [address] [address] Manda Jane UA RANDOM W/MICROSCOPICon BACTERIA NONE SEEN Normal NONE SEEN The [facility] Comment on above: Performed By: #### M G, RENAL, URIC #### [facility] [address] [place] [address] Dr. Manda Jane Bilirubin Ql (U) Negative Normal NEGATIVE The [facility] Comment on above: Performed By: #### M G, RENAL, URIC #### [facility] [address] [place] [address] Dr. Manda Jane CAST NONE SEEN Normal NONE SEEN [facility] Comment on above: Performed By: #### M G, RENAL, URIC #### [facility] [address] [place] [address] Dr. Manda Jane Clarity (U) CLEAR Normal CLEAR The [facility] Comment on above: Performed By: #### M G, RENAL, URIC #### [facility] [address] [place] [address] Dr. Manda Jane Color (U) YELLOW Normal YELLOW The [facility] Comment on above: Performed By: #### M G, RENAL, URIC #### [facility] [address] [place] [address] Dr. Manda Jane Crystals LM Nom (Urine sed) NONE SEEN Normal NONE SEEN The [facility] Comment on above: Performed By: #### M G, RENAL, URIC #### [facility] [address] [place] [address] Dr. Manda Jane Epithelial cells LM Ql (Urine sed) MODERATE Abnormal NONE SEEN /RARE The [facility] Comment on above: Performed By: #### M G, RENAL, URIC #### [facility] Laboratory [address] [place] [address] Dr. Manda Jane Glucose Ql (U) >1000 Abnormal NEGATIVE The [facility] Comment on above: Performed By: #### M G, RENAL, URIC #### [facility] Laboratory [address] [place] [address] Dr. Manda Jane Hemoglobin Ql (U) SMALL Abnormal NEGATIVE The [facility] Comment on above: Performed By: #### M G, RENAL, URIC #### [facility] Laboratory [address] [address] [address] Manda Jane Ketones Ql (U) Negative Normal NEGATIVE The [facility] Comment on above: Performed By: #### M G, RENAL, URIC #### [facility] Laboratory [address] [address] [address] Manda Jane LEUKOCYTES Negative Normal NEGATIVE [facility] Comment on above: Performed By: #### M G, RENAL, URIC #### [facility] Laboratory [address] [address] [address] Manda Jane MUCOUS NONE SEEN Normal NONE SEEN The [facility] Comment on above: Performed By: #### M G, RENAL, URIC #### [facility] Laboratory [address] [place] [address] Dr. Manda Jane Nitrite Ql (U) Negative Normal NEGATIVE The [facility] Comment on above: Performed By: #### M G, RENAL, URIC #### [facility] Laboratory [address] [address] [address] Manda Jane pH (U) 6.0 [pH] Normal 5-9 [facility] Comment on above: Performed By: #### M G, RENAL, URIC #### [facility] Laboratory [address] [place] [address] Dr. Manda Jane RBC 2-5 Abnormal 0-2 The [facility] Comment on above: Performed By: #### M G, RENAL, URIC #### [facility] Laboratory [address] [address] [address] Manda Jane SPEC GRAVITY 1.015 Normal 1.005-<=1.025 The [facility] Comment on above: Performed By: #### M G, RENAL, URIC #### [facility] Laboratory [address] [place] [address] Dr. Manda Jane UA PROTEIN Negative Normal NEGATIVE/ TRACE The [facility] Comment on above: Performed By: #### M G, RENAL, URIC #### [facility] Laboratory [address] [address] [address] Manda Jane Urobilinogen Qn (U) 0.2 {Radha'U}/dL Normal 0.2 - 1. 0 The [facility] Comment on above: Performed By: #### M G, RENAL, URIC #### [facility] Laboratory [address] [place] [address] Dr. Manda Jane WBC NONE SEEN Normal NONE SEEN The [facility] Comment on above: Performed By: #### M G, RENAL, URIC #### [facility] Laboratory [address] [place] [address] Dr. Manda Jane URIC ACID SERUMon 09-07-2021 Urate [Mass/Vol] 7.4 mg/dL Critically high 2.6-6.0 [facility] Comment on above: Performed By: #### M G, RENAL, URIC #### [facility] Laboratory [address] [place] [address] Dr. Manda Jane URINE T PROTEIN CREAT RATIOo n 09-07-2021 Protein (U) [Mass/Vol] 18.5 mg/dL Critically high <=12.0 [facility] Comment on above: Performed By: #### M G, RENAL, URIC #### [facility] Laboratory [address] [place] [address] Dr. Manda Jane UR PROT CREAT RAT 0.[address] [facility] Comment on above: Performed By: #### M G, RENAL, URIC #### [facility] Laboratory [address] [place] [address] Dr. Manda Jane URINE CREAT 99.90 mg/dL Normal 20.00-300.00 [facility] Comment on above: Performed By: #### M G, RENAL, URIC #### [facility] Laboratory [address] [place] [address] Dr. Manda Jane VITAMIN D 25 OHon 09-07-2021 VIT D 25-OH 47.1 ng/mL Normal [facility] Comment on above: Performed By: #### V ITAD #### [facility] Laboratory [address] [place] [address] Dr. Manda Jane VIT D RANGES SEE BELOW Normal The [facility] Comment on above: Result Comment: <20 ng/mL Vit D deficient 20 - <30 ng/mL Vit D insufficient 30 - 100 ng/mL Vit D sufficient >100 ng/mL Potential Toxicity Performed By: #### V ITAD #### [facility] Laboratory [address] [address] [address] Manda Jane [facility] echo transthoracicon [facility] echo transthoracic [facility] [place] [address] [place] [address] Echocardiogram Signed Patient: Jessica Sam MR#: [id number] 72 : 1945 Acct:[id number] Age/Sex: 75 / F ADM Date: 02/28/21 Loc: Room: Type: [facility] Attending Dr: Ashlie Melgar DO Ordering Provider: Ashlie Melgar DO Date of Service: 02/28/21 [facility] echo transthoracic: Shortness of Breath Copies to: DO Akiko Brito MD, FAC Weight: 220 lb Performed By: Marlys Levi [...] HARSH 02/28/21849 Dictated By: Akiko Laws MD, FAC 02/28/21840 Signed By: 02/28/21849 [facility] US art pvr/post [facility] US art pvr/post [facility] [place] [address] Ultrasound Report Signed Patient: Jessica Sam MR#: [id number] 72 : 1945 Acct:[id number] Age/Sex: 75 / F ADM Date: 02/28/21 Loc: Room: Type: [facility] Attending Dr: Ashlie Melgar DO Ordering Provider: [...] Radha Flores MD02/28/2021 2:46 PM Dictation Location: [address] [address] Tech: Mirian Shine Transcribed By: LEIF 02/28/21 1446 Dictated By: Radha Flores MD 02/28/21 1444 Signed By: 02/28/21 1446 Normal [facility] Vital Signs Date Time Vital Sign Value Performing Clinician Facility 09-10-2024 13:40-0400 Body height 154.94 cm [facility] 09-10-2024 13:40-0400 Body mass index (BMI) [Ratio] 34.2 kg/m2 [facility] 09-10-2024 13:40-0400 Body weight 82.15 kg [facility] 09-10-2024 13:40-0400 Diastolic blood pressure 64 mm[Hg] [facility] 09-10-2024 13:40-0400 Heart rate 67 /min [facility] 09-10-2024 13:40-0400 Respiratory rate 16 /min [facility] 09-10-2024 13:40-0400 SaO2% (BldA) [Mass fraction] 98 % [facility] 09-10-2024 13:40-0400 Systolic blood pressure 121 mm[Hg] [facility] 08-07-2024 11:18-0400 Diastolic blood pressure 59 mm[Hg] [facility] 08-07-2024 11:18-0400 Systolic blood pressure 141 mm[Hg] [facility] 08-07-2024 11:16-0400 Body height 157.48 cm [facility] 08-07-2024 11:16-0400 Body mass index (BMI) [Ratio] 31.4 kg/m2 [facility] 08-07-2024 11:16-0400 Body temperature 98.2 [degF] [facility] 08-07-2024 11:16-0400 Body weight 78.01 kg [facility] 08-07-2024 11:16-0400 Heart rate 106 /min [facility] 08-07-2024 11:16-0400 Respiratory rate 18 /min [facility] 08-07-2024 11:16-0400 SaO2% (BldA) [Mass fraction] 96 % [facility] 03-31-2024 10:30-0500 Body height 154.3 cm Ashlie Petznick DO Work Phone: [facility] 03-31-2024 10:30-0500 Body mass index (BMI) [Ratio] 35.53 kg/m2 Ashlie Petznick DO Work Phone: [facility] 03-31-2024 10:30-0500 Body temperature 96.8 [degF] Ashlie Petznick DO Work Phone: [facility] 03-31-2024 10:30-0500 Body weight 84.6 kg Ashlie Petznick DO Work Phone: [facility] 03-31-2024 10:30-0500 Diastolic blood pressure 68 mm[Hg] Ashlie Petznick DO Work Phone: [facility] 03-31-2024 10:30-0500 Heart rate 99 /min Ashlie Petznick DO Work Phone: [facility] 03-31-2024 10:30-0500 SaO2% (BldA) [Mass fraction] 96 % Ashlie Petznick DO Work Phone: [facility] 03-31-2024 10:30-0500 Systolic blood pressure 138 mm[Hg] Ashlie Petznick DO Work Phone: [facility] 08-26-2023 13:59-0400 Body height 157.48 cm [facility] 08-26-2023 13:59-0400 Body mass index (BMI) [Ratio] 32.5 kg/m2 [facility] 08-26-2023 13:59-0400 Body temperature 97.1 [degF] [facility] 08-26-2023 13:59-0400 Body weight 80.85 kg [facility] 08-26-2023 13:59-0400 Diastolic blood pressure 73 mm[Hg] [facility] 08-26-2023 13:59-0400 Heart rate 90 /min [facility] 08-26-2023 13:59-0400 Respiratory rate 18 /min [facility] 08-26-2023 13:59-0400 SaO2% (BldA) [Mass fraction] 98 % [facility] 08-26-2023 13:59-0400 Systolic blood pressure 115 mm[Hg] [facility] 11-08-2022 11:40-0400 Body height 157.48 cm Felicitas Emir Other [facility] Other 11-08-2022 11:40-0400 Body mass index (BMI) [Ratio] 35.88 kg/m2 Felicitas Emir Other [facility] Other 11-08-2022 11:40-0400 Body temperature 97.2 [degF] Felicitas Emir Other [facility] Other 11-08-2022 11:40-0400 Body weight 89 kg Felicitas Emir Other [facility] Other 11-08-2022 11:40-0400 Diastolic blood pressure 61 mm[Hg] Felicitas Emir Other [facility] Other 11-08-2022 11:40-0400 Respiratory rate 20 /min Felicitas Emir Other [facility] Other 11-08-2022 11:40-0400 SaO2% (BldA) [Mass fraction] 95 % Felicitas Emir Other [facility] Other 11-08-2022 11:40-0400 Systolic blood pressure 112 mm[Hg] Felicitas Emir Other [facility] Other 04-05-2022 14:20-0500 Body height 157.48 cm Felicitas Emir Other [facility] Other 04-05-2022 14:20-0500 Body mass index (BMI) [Ratio] 39.83 kg/m2 Felicitas Emir Other [facility] Other 04-05-2022 14:20-0500 Body temperature 97.2 [degF] Felicitas Emir Other [facility] Other 04-05-2022 14:20-0500 Body weight 98.79 kg Felicitas Emir Other [facility] Other 04-05-2022 14:20-0500 Diastolic blood pressure 74 mm[Hg] Felicitas Emir Other [facility] Other 04-05-2022 14:20-0500 Respiratory rate 20 /min Felicitas Emir Other [facility] Other 04-05-2022 14:20-0500 SaO2% (BldA) [Mass fraction] 97 % Felicitas Emir Other [facility] Other 04-05-2022 14:20-0500 Systolic blood pressure 112 mm[Hg] Felicitas Emir Other [facility] Other 09-14-2021 12:20-0400 Body height 157.48 cm Felicitas Emir Other [facility] Other 09-14-2021 12:20-0400 Body mass index (BMI) [Ratio] 41.84 kg/m2 Felicitas Emir Other [facility] Other 09-14-2021 12:20-0400 Body temperature 97.2 [degF] Felicitas Emir Other [facility] Other 09-14-2021 12:20-0400 Body weight 103.78 kg Felicitas Emir Other [facility] Other 09-14-2021 12:20-0400 Diastolic blood pressure 72 mm[Hg] Felicitas Emir Other [facility] Other 09-14-2021 12:20-0400 Respiratory rate 20 /min Felicitas Emir Other [facility] Other 09-14-2021 12:20-0400 SaO2% (BldA) [Mass fraction] 95 % Felicitas Emir Other [facility] Other 09-14-2021 12:20-0400 Systolic blood pressure 110 mm[Hg] Felicitas Emir Other [facility] Other 06-06-2021 13:30-0500 Body height 157.48 cm Trevor Cidrer Other [facility] Other 06-06-2021 13:30-0500 Body mass index (BMI) [Ratio] 40.23 kg/m2 Trevor Cidrer Other [facility] Other 06-06-2021 13:30-0500 Body temperature 96.9 [degF] Trevor Schmittehrer Other [facility] Other 06-06-2021 13:30-0500 Body weight 99.79 kg Trevor Schmittehrer Other [facility] Other 06-06-2021 13:30-0500 Diastolic blood pressure 70 mm[Hg] Trevor Buehrer Other [facility] Other 06-06-2021 13:30-0500 SaO2% (BldA) [Mass fraction] 97 % Trevor Buehrer Other [facility] Other 06-06-2021 13:30-0500 Systolic blood pressure 110 mm[Hg] Trevor Buehrer Other [facility] Other 02-23-2021 12:40-0400 Body height 157.48 cm Felicitas Emir Other [facility] Other 02-23-2021 12:40-0400 Body mass index (BMI) [Ratio] 40.12 kg/m2 Felicitas Emir Other [facility] Other 02-23-2021 12:40-0400 Body temperature 96.8 [degF] Felicitas Emir Other [facility] Other 02-23-2021 12:40-0400 Body weight 99.52 kg Felicitas Emir Other [facility] Other 02-23-2021 12:40-0400 Diastolic blood pressure 74 mm[Hg] Felicitas Emir Other [facility] Other 02-23-2021 12:40-0400 Respiratory rate 20 /min Felicitas Emir Other [facility] Other 02-23-2021 12:40-0400 SaO2% (BldA) [Mass fraction] 92 % Felicitas Emir Other [facility] Other 02-23-2021 12:40-0400 Systolic blood pressure 120 mm[Hg] Felicitas Emir Other [facility] Other Encounters Encounter Date Encounter Type Care Provider Facility Start: 09-10-2024 End: 09-10-2024 [facility] Work Phone: Start: 09-10-2024 End: 09-10-2024 Patient encounter procedure [facility] Work Phone: Start: 08-07-2024 End: 08-07-2024 ambulatory [facility] Work Phone: Start: 08-07-2024 End: 08-07-2024 Patient encounter procedure [facility] [place] Work Phone: Start: 04-20-2024 End: 04-20-2024 Clinisync Result Encounter Generic External Data Provider [facility] Unsolicited Start: 04-20-2024 End: 04-20-2024 Clinisync Result Encounter Generic External Data Provider [facility] Unsolicited Start: 03-31-2024 End: 03-31-2024 ambulatory ASHLIE MELGAR Not Available Start: 03-31-2024 End: 03-31-2024 Patient encounter procedure Ashlie Melgar DO Work Phone: [facility] [address] Comment on above: Medicare annual [facility] visit, subsequent (Primary Dx); Type 2 diabetes mellitus with stage 4 chronic kidney disease, without long-term current use of insulin (CMS/HCC); Simple chronic bronchitis (CMS/HCC); Chronic diastolic heart failure (CMS/HCC); Essential hypertension (CMS/HCC); NAFLD (nonalcoholic fatty liver disease); CKD (chronic kidney disease) stage 4, GFR 15-29 ml/min (CMS/HCC); Claudication (CMS/HCC); Secondary hyperparathyroidism of renal origin (CMS/HCC); Type 2 diabetes mellitus with both eyes affected by mild nonproliferative retinopathy without macular edema, without long-term current use of insulin (CMS/HCC); Pure hypercholesterolemia (CMS/HCC) Start: 09-24-2023 End: 09-24-2023 ambulatory ASHLIE MELGAR Not Available Start: 08-26-2023 End: 08-26-2023 ambulatory [facility] Work Phone: Start: 08-26-2023 End: 08-26-2023 Patient encounter procedure [facility] Work Phone: Start: 08-21-2023 Non-patient / Non-visit [facility] Work Phone: Start: 11-08-2022 End: 11-08-2022 ambulatory Felicitas Emir Other [facility] Other Start: 11-08-2022 Office outpatient vi sit 25 minutes Felicitas Emir [facility] Start: 04-05-2022 End: 04-05-2022 ambulatory Felicitas Emir Other [facility] Other Start: 04-05-2022 Office outpatient vi sit 15 minutes Felicitas Emir [facility] Start: 03-29-2022 End: 03-30-2022 ambulatory FELICITAS EMIR Facility:[facility] Start: 11-28-2021 End: 11-29-2021 ambulatory RADHA JUAN RAMONICK Facility:[facility] Start: 09-14-2021 End: 09-14-2021 ambulatory Felicitas Emir Other [facility] Other Start: 09-14-2021 Office outpatient vi sit 25 minutes Felicitas Emir [facility] Start: 09-07-2021 End: 09-08-2021 ambulatory FELICITAS EMIR Facility:[facility] Start: 06-06-2021 End: 06-06-2021 ambulatory Trevor Buehrer Other [facility] Other Start: 06-06-2021 Office outpatient ne w 45 minutes Trevor Buehrer [facility] Start: 02-23-2021 End: 02-23-2021 ambulatory Felicitas Emir Other [facility] Other Start: 02-23-2021 Office outpatient vi sit 25 minutes Felicitas Emir [facility] Procedures Date Procedure Procedure Detail Performing Clinician Start: 04-20-2024 [facility] CBC WITH PLATELET NO DIFFERENTIAL Generic External Data Provider Start: 04-20-2024 [facility] URINE T PROTEIN CREAT RATIO Generic External Data Provider Start: 02-28-2023 H/O: hysterectomy History of hysterectomy Ashlie Melgar DO Work Phone: Plan of Treatment Date Care Activity Detail Author Start: 03-31-2025 Medicare Annual Well ness (AWV) Medicare Annual Wellness (AWV) [facility] Start: 10-19-2024 Influenza vaccination Influenza Vacc ine (#1) [facility] Comment on above: Postponed from 12/21 (Patient Refused) Start: 10-05-2024 End: 10-05-2024 Patient encounter procedure 10/05/2024 1:00 PM EDT Office Visit [facility] [address] [place] [address] Ashlie Melgar DO [address] [place] [address] [facility] [address] Start: 07-30-2024 Glaucoma screening Diabetes: R etinopathy Screening [facility] Start: 12-25-2023 Hemoglobin A1c measurement Diabetes: Hemoglobin A1C [facility] Start: 03-29-2023 Urine screening for protein Diabetes: Urine Protein Screening [facility] CBC W Auto Different ial panel - Blood CBC and differential Lab Routine Type 2 diabetes mellitus with stage 4 chronic kidney disease, without long-term current use of insulin ([facility]) Ordered: 03/31/2024 [facility] Comment on above: Ordered: 03/31/2024 Comprehensive metabo lic 2000 panel - Serum or Plasma Comprehensive metabolic panel Lab Routine Type 2 diabetes mellitus with stage 4 chronic kidney disease, without long-term current use of insulin ([facility]/HCC) Ordered: 03/31/2024 [facility] Work Phone: Comment on above: Ordered: 03/31/2024 Lipid 1996 panel - S cayla or Plasma Lipid panel Lab Routine Type 2 diabetes mellitus with stage 4 chronic kidney disease, without long-term current use of insulin ([facility]/HCC) Ordered: 03/31/2024 [facility] Comment on above: Ordered: 03/31/2024 Microalbumin/Creatin ine panel in random Urine Microalbumin / creatinine urine ratio Lab Routine Type 2 diabetes mellitus with stage 4 chronic kidney disease, without long-term current use of insulin ([facility]) Ordered: 03/31/2024 [facility] Comment on above: Ordered: 03/31/2024 Renal function 1999 panel - Serum or Plasma [facility] Renal function 1999 panel - Serum or Plasma [facility] Immunizations Immunization Date Immunization Notes Care Provider Shayla ovalle 12-14-2014 pneumococcal polysaccharide vaccine, 23 valent Ashlie Petznick DO Work Phone: [facility] 04-22-2010 pneumococcal polysaccharide vaccine, 23 valent Ashlie Petznick DO Work Phone: [facility] Payers Date Payer Category Payer Medicare (Managed Care) [facility] MEDICARE [id number] 2023 Medicare [id number] 2017 Medicaid MEDICAID [facility] [id number] 1959 Medicaid [id number] 1959 Medicare [id number] 1945 Unknown [id number] 1945 Unknown [id number] 1945 Unknown [id number] 1945 Unknown [id number] 1945 Unknown [id number] Self-pay Self Pay [id number] Social History Date Type Detail Facility Unknown if ever smoked [facility] Other Start: 09-03-2023 End: 03-31-2024 Sex Assigned At [facility] Start: 08-26-2023 End: 09-10-2024 Tobacco smoking status MIIS Smoker (finding) [facility] Start: 1945 Sex Assigned At Female [facility] Start: 04-22-1965 Tobacco smoking stat us MIIS Smokes tobacco daily [facility] Start: 04-22-1965 [...] at Not on file [facility] Start: 08-07-2024 End: 09-10-2024 Sex Female (finding) [facility] Medical Equipment Procedure Code Equipment Code Equipment Origin al Text Equipment Identifier Dates [id number] Start: 03-31-2024 Fsbs daily [id number] Start: 03-31-2024 Clinical Notes 06-06-2021 to 08-07-2024 Note Date & Type Note Facility 08-07-2024 Evaluation note Diagnosis Onset Date Resolution Gout involving toe of right foot acute August 07, 2024 11:04am Anemia of renal disease acute M ay 2024 12:52pm CKD (chronic kidney disease) stage 3, GFR 30-59 ml/min acute September 10, 2024 12:52pm Secondary hyperparathyroidism acute September 10 12:52pm Hyperlipidemia inactive September 10, 2024 12:52pm Hypertensive chronic kidney disease with stage 1 through stage 4 chronic ki inactive August 212024 12:52pm Hyperuricemia inactive September 10, 025 12:52pm Microscopic hematuria inactive September 10, 2024 12:52pm Type 2 diabetes mellitus with diabetic chronic kidney disease inactive September 10, 2024 12:52pm Vitamin D deficiency inactive September 10, 2024 12:52pm [facility] Work Phone: [phone] 657-144312-10-2024 History of Present illness Narrative* Ashlie Melgar DO - 03/31/2024 12:42 PM ESTAssociated Problem(s): Pure hypercholesterolemia (CMS/HCC) Prior to the patient's appointment today, I reviewed past laboratory testing and any diagnostics asit relates in the management of their cholesterol. Encouraged to stay on their statin medication daily and continue with a low cholesterol (mediterranean style) diet. * Ashlie Melgar DO - 03/31/2024 12:42 PM ESTAssociated Problem(s): Type 2 diabetes mellitus with stage [...] current care plan and goals were discussed. Acopy of this along with pertinent instructions were [...] include: Dietary education. No changes to medications * Ashlie Melgar DO - 03/31/2024 12:41 PM ESTAssociated Problem(s): Claudication (CMS/HCC) Encouraged smoking cessation and regular walking to help with this. * Ashlie Melgar DO - 03/31/2024 12:41 PM ESTAssociated Problem(s): CKD (chronic kidney disease) stage 4, GFR 15-29 ml/min (CMS/HCC) Reviewed patients recent GFR and will continue to monitor this. Encouarged to continue to avoid anyNSAIDS or other nephrotoxic agents. Will stay on medications to help prevent any future progressionof kidney damage. * Ashlie Melgar DO - 03/31/2024 12:41 PM ESTAssociated Problem(s): Essential hypertension ([facility]/HCC) Prior to the patient's appointment today, I reviewed past laboratory testing and any diagnostics asit relates in the management of their hypertension. Current blood pressure readings were reviewed with the patient along with blood pressure goal of less than 140/90. Encouraged to continue a low sodium diet and will stay on current medications. * Ashlie Melgar DO - 03/31/2024 12:41 PM ESTAssociated Problem(s): Chronic diastolic heart failure (CMS/HCC) Prior to the patient's appointment today, I reviewed past laboratory testing and any diagnostics asit relates in the management of their CHF. Discussed continuing to stay on a low sodium diet and totake daily weights to monitor fluid status. Will continue current therapy for this. * Ashlie Melgar DO - 03/31/2024 12:41 PM ESTAssociated Problem(s): Simple chronic bronchitis (CMS/[facility] [facility] Stable, no changes needed to current treatment plan. Encouraged smoking cessation but she is not interested * Ashlie Melgar DO - 03/31/2024 10:15 AM EST Images from the original note were not [...] visit d/t appetite suppression, increased back to the0.5 about 1 month ago. Appetite seems to [...] Medicine) Ashlie Melgar DO as PCP - [facility] Ashlie Melgar DO as PCP - [facility] Medicare Annual Visit Over the past 2 [...] tremor Chronic diastolic heart failure (CMS/HCC) Claudication (CMS/HCC) Essential hypertension (CMS/HCC) History of hysterectomy NAFLD (nonalcoholic fatty liver disease) Pure hypercholesterolemia (CMS/HCC) Secondary hyperparathyroidism of renal origin (CMS/HCC) Simple chronic bronchitis ([facility]) Type 2 diabetes mellitus with stage 4 chronic kidney disease, without long-term current use of insulin ([facility]) Type 2 diabetes mellitus with both eyes affected by mild nonproliferative retinopathy without macular edema, without long-term current use of insulin ([facility]) Hyperuricemia Microscopic hematuria Vitamin D deficiency CKD (chronic kidney disease) stage 4, GFR 15-29 ml/min ([facility]) Social History Tobacco Use Smoking status: Every [...] reviewed past laboratory testing and any diagnostics asit relates in the management of their CHF. Discussed continuing to stay on a low sodium diet and totake daily weights to monitor fluid status. Will continue current therapy for this. Claudication (CMS/HCC) Encouraged smoking cessation and regular walking to help with this. Essential hypertension (CMS/HCC) Prior to the patient's appointment today, I reviewed past laboratory testing and any diagnostics asit relates in the management of their hypertension. Current blood pressure readings were reviewed with the patient along with blood pressure goal of less than 140/90. Encouraged to continue a low sodium diet and will stay on current medications. NAFLD (nonalcoholic fatty liver disease) Pure hypercholesterolemia (CMS/HCC) Prior to the patient's appointment today, I reviewed past laboratory testing and any diagnostics asit relates in the management of their cholesterol. [...] current care plan and goals were discussed. Acopy of this along with pertinent instructions were [...] medications Relevant Medications Blood Glucose Monitoring Suppl ([employer]) w/Device kit glucose blood ([employer]) test strip Lancets ([employer] Delica Plus [id number]) [facility] [place] Other Relevant Orders Comprehensive metabolic panel Lipid panel Microalbumin / creatinine urine ratio CBC and differential Type 2 diabetes mellitus with both eyes affected by mild nonproliferative retinopathy without macular edema, without long-term current use of insulin ([facility]) CKD (chronic kidney disease) stage 4, GFR 15-29 ml/min ([facility]) Reviewed patients recent GFR and will continue to monitor this. Encouarged to continue to avoid anyNSAIDS or other nephrotoxic agents. Will stay on medications to help prevent any future progressionof kidney damage. Other Visit Diagnoses Medicare annual wellness visit, subsequent - [facility] I reviewed the patients past medical [...] Medications New Prescriptions BLOOD GLUCOSE MONITORING SUPPL ([employer]) W/DEVICE KIT Fsbs daily GLUCOSE BLOOD ([employer] VERIO) TEST STRIP Fsbs daily LANCETS ([employer] DELICA PLUS [id number]) [facility] Fsbs daily Previous Medications ACETAMINOPHEN (TYLENOL) 325 [...] with the patient today. documented in this encounterSt. [facility] [id number] Evaluation note* Encounter Date Diagnosis Assessment Notes Treatment Notes Treatment Clinical Notes Oct, Hypertensive chronic kidney disease with stage 1 through stage 4 chronic kidney disease, or unspecified chronic kidney disease (ICD-10 - I12.9) Blood pressure is controlled on current regimen. She appears to be euvolemic. I have advised her to limit her fluid intake 60 ounces a day and Continue Lasix 40 mg twice daily. Oct, Chronic kidney disea se, stage III (moderate) (ICD-10 - N18.30) She has CKD due to DM and HTN. Her renal US is unremarkable. She has unremarkable w/u for paraproteinemia. Her baseline Serum Creatinine is 1.3-1.5 mg /dl with no evidence of proteinuria. I discussed with her the importance of good DM and HTN control to slow down the progression of CKD. Oct, Type 2 diabetes sim itus with diabetic chronic kidney disease (ICD-10 - [...] to discuss with the PCP. Oct, Hyperuricemia (ICD-1 0 - E79.0) She has hyperuricemia and gout. [...] is within the goal. Continue current medications [facility] Other 12-15-2022 Evaluation note* Encounter Date Diagnosis Assessment Notes Treatment Notes Treatment Clinical Notes Mar, Hypertensive chronic kidney disease with stage 1 through stage 4 chronic kidney disease, or unspecified chronic kidney disease (ICD-10 - I12.9) Blood pressure is controlled on current regimen. She appears to be euvolemic. I have advised her to limit her fluid intake 60 ounces a day and Continue Lasix 40 mg twice daily. Mar, Chronic kidney disea se, stage III (moderate) (ICD-10 - N18.30) She has CKD due to DM and HTN. Her renal US is unremarkable. She has unremarkable w/u for paraproteinemia. Her baseline Serum Creatinine is 1.3-1.5 mg /dl with no evidence of proteinuria. I discussed with her the importance of good DM and HTN control to slow down the progression of CKD. Mar, Type 2 diabetes sim itus with diabetic chronic kidney disease (ICD-10 - [...] to discuss with the PCP. Mar, Hyperuricemia (ICD-1 0 - E79.0) She has hyperuricemia and gout. [...] goal. Continue current medications Mar, Iron deficiency (ICD -10 - E61.1) Hemoglobin is within the goal. We will check iron studies. I have advised her to consider the colonoscopy to rule out malignancy. [facility] Other 05-26-2022 Evaluation note* Encounter Date Diagnosis Assessment Notes Treatment Notes Treatment Clinical Notes August, Hypertensive chronic kidney disease with stage 1 through stage 4 chronic kidney disease, or unspecified chronic kidney disease (ICD-10 - I12.9) Blood pressure is controlled on current regimen. She appears to be hypervolemic. I have advised her to limit her fluid intake 60 ounces a day and increase the Lasix 40 mg twice daily. August, Chronic kidney disea se, stage III (moderate) (ICD-10 - N18.30) She has CKD due to DM and HTN. Her renal US is unremarkable. She has unremarkable w/u for paraproteinemia. Her baseline Serum Creatinine is 1.5 mg /dl with no evidence of proteinuria. I discussed with her the importance of good DM and HTN control to slow down the progression of CKD. August, Type 2 diabetes sim itus with diabetic chronic kidney disease (ICD-10 - [...] to discuss with the PCP. August, Hyperuricemia (ICD-1 0 - E79.0) She has hyperuricemia and gout. [...] Continue oral Ergocalciferol August, Anemia of renal dise ase (ICD-10 - D63.1) Hemoglobin is within the goal. We will check iron studies. I have advised her to consider the colonoscopy to rule out malignancy. [facility] Other 02-15-2022 Evaluation note* Encounter Date Diagnosis Assessment Notes Treatment Notes Treatment Clinical Notes May, Peripheral artery disease (ICD-10 - [...] see her back on an as-needed basis. [facility] Other Evaluation noteNortCerevellum [employer] Other Evaluation note* Diagnosis Onset Date Resolution Status CKD (chronic kidney disease) stage 3, GFR 30-59 ml/min acute [id number] acute Hyperuricemia acute Microscopic hematuria acute Secondary hyperparathyroidism acute Type 2 diabetes mellitus wit h diabetic chronic kidney disease acute Vitamin D deficiency acute [facility] Work Phone: Evaluation note* Diagnosis Medicare annual wellness visit, subsequent- Primary Type 2 diabetes with nephropathy (CMS/HCC) Simple chronic bronchitis (CMS/HCC) Simple chronic [...] kidney disease) stage 4, GFR 15-29 ml/min ([facility]) Chronic kidney disease, Stage IV (severe) Type 2 diabetes mellitus with stage 4 chronic kidney disease, without long-term current use of insulin ([facility]) Peripheral vascular disease, unspecified ([facility]) Peripheral vascular disease, unspecified Seborrheic keratosis Medicare annual wellness visit, subsequent- Primary Type 2 diabetes mellitus with stage 4 chronic kidney disease, without long-term current use of insulin ([facility]) Simple chronic bronchitis ([facility]) Simple chronic bronchitis Chronic diastolic heart failure ([facility]) Chronic diastolic heart failure Essential hypertension ([facility]) Unspecified essential hypertension NAFLD (nonalcoholic fatty liver disease) CKD (chronic kidney disease) stage 4, GFR 15-29 ml/min ([facility]) Chronic kidney disease, Stage IV (severe) Claudication ([facility]) Unspecified peripheral vascular disease Secondary hyperparathyroidism of renal origin ([facility]) Secondary hyperparathyroidism (of renal origin) Type 2 diabetes mellitus with both eyes affected by mild nonproliferative retinopathy without macular edema, without long-term current use of insulin ([facility]) Pure hypercholesterolemia ([facility]) Pure hypercholesterolemia documented in this encounter [facility] HealthcareEvaluation noteNo assessment information availableBerger Hospital Work Phone: History general Narrative - ReportedNort [employer] Other History general Narrative - Reported* Type Description Date Medical History TYPE II DIABETIC Medical History HTN Medical History HYPERLIPIDEMIA Medical History KIDNEY DISEASE STAGE 3# Medical History ADRENAL ADENOMA Medical History CERVICAL CANCER Medical History PULMONARY NODULE Medical History PAD Medical History Cervical cancer diagnosed in the 1970s Surgical History HIATAL HERNIA Surgical History APPENECTOMY Surgical History TOTAL HYSTRECTOMY Surgical History OVARIAN TUMOR REMOVAL Surgical History CERVICAL CANCER Surgical History BILATERAL KNEE REPLACEMENTS Surgical History HERNIA repair 11/2014 Surgical History eye lid lifts 12/2019 Hospitalization History SEE ABOVE SURGERY Hospitalization History [facility] Other Summary Purpose Family History Relationship Condition Age at Onset Recorded Date/T rubi father Heart disease Unknown History of stroke Unknown Unknown Hypertension Unknown family member Unknown grandparent Diabetes mellitus Unknown Not Specified Hypertension Unknown natural son Malignant neoplasm Unknown sister Hypertension Unknown Malignant neoplasm Unknown Relationship Condition Age at Onset Recorded Date/T rubi father Heart disease Unknown History of stroke Unknown Unknown Hypertension Unknown family member Unknown grandparent Diabetes mellitus Unknown mother Hypertension Unknown son Malignant neoplasm Unknown sister Hypertension Unknown Malignant neoplasm Unknown Advance Directives Advance Directive Response Recorded Date/ Time Advance Directives No September 09 5:43pm Chief Complaint and Reason for Visit Chief Complaint RENAL 6 MONTH F/U Reason for Visit CKD (chronic kidney disease) stage 3, GFR 30-59 ml/min [id number] Hyperuricemia Microscopic hematuria Secondary hyperparathyroidism Type 2 diabetes mellitus with diabetic chronic kidney disease Vitamin D deficiency Chief Complaint Admit Date Right foot pain August 07, 2024 11: 04am Chief Complaint Admit Date Right foot pain August 07, 2024 11: 04am renal F/U September 10, 2024 12:52 pm Reason for Visit Admit Date Gout involving toe of right foot July 212024 11:04am Anemia of renal disease September 10, 2024 1 2:52pm CKD (chronic kidney disease) stage 3, GF R 30-59 ml/min September 10, 2024 12:52pm Secondary hyperparathyroidism September 10, 2024 12:52pm Hyperlipidemia September 10, 2024 12:52 pm Hypertensive chronic kidney disease with stage 1 through stage 4 chronic ki September 10, 2024 12:52pm Hyperuricemia September 10, 2024 12:52 pm Microscopic hematuria September 10, 2024 12: 52pm Type 2 diabetes mellitus wit h diabetic chronic kidney disease September 10, 2024 12:52pm Vitamin D deficiency September 10, 2024 12:5 2pm Additional Source Comments INFORMATION SOURCE (unrecogn ized section and content) DATE CREATED AUTHOR 03/05/2021 [facility] DATE CREATED AUTHOR AUTHOR'S ORGANIZ ATION 04/03/2022 [facility] DATE CREATED AUTHOR AUTHOR'S ORGANIZ ATION 04/03/2024 [facility] EPIC REASON FOR VISIT (unrecogniz ed section and content) Reason Comments Diabetes Medicare Annual Wellness Visit Initial Care Teams (unrecognized sec tion and content) Team Status: Active Member Role Status Dates Ashlie Melgar DO Primary Care Provider Active Team Status: Inactive Member Role Status Dates Ashlie Melgar DO Primary Care Provider Active Start: August 07, 2024 End: August 07, 2024 Anh Altamirano APRN Attending Provider Active Start: August 07, 2024 End: August 07, 2024 Team Status: Active Member Role Status Dates [...] August 26, 2023 End: August 26, 2023 Integrated Program Teacher Relationship Specialty Start Date End Date Juan Ramonoscar Ashlie Marsha, DO [address] [place] [address] PCP - [facility] 09/13/22 Ashlie Melgar, DO [address] [place] [address] PCP - General Family Medicine 08/28/22 Ashlie Melgar, DO [address] [place] [address] PCP - [facility] 06/21/23 04/21/24 Integrated Program Teacher Relationship Specialty Start Date End Date Dayanajackie Ashlie Marsha, DO [address] [place] [address] PCP - [facility] 09/13/22 Ashlie Melgar, DO [address] [place] [address] PCP - General Family Medicine 08/28/22 Ashlie Melgar, DO [address] [place] [address] PCP - [facility] 06/21/23 04/21/24 Team Status: Inactive Member Role Status Dates Ashlie Petznick , DO Primary Care Provider Active Start: September 10, 2024 End: September 10, 2024 Felicitas Leong MD Attending Provider Active Start : September 10, 2024 End: September 10, 2024 Goals (unrecognized section and content) Goals may [...] BE BASED ON THE PRIMARY CLINICAL RECORDS. [employer] provides no warranty or guarantee of the accuracy or completeness of information in this document.
[2024-09-30 12:21] LABS: Albumin Level 3.5 g/dL (3.4-5.0); Anion Gap 14.5; BUN Creatinine Ratio 16.3; Calcium 9.8 mg/dL (8.5-10.1); Carbon Dioxide 25.6 mmol/L (21.0-32.0); Chloride 103 mmol/L (98-107); Estimated GFR (African America 48 (>=60 mL/min/1.73m^2); Estimated GFR (Non-African Ame 40 (>=60 mL/min/1.73m^2); Glucose 99 mg/dL (74-106); Phosphorus 2.8 mg/dL (2.6-4.7); Potassium 4.1 mmol/L (3.5-5.1); Sodium 139 mmol/L (136-145)
== END 2024-09-30 11:42 | disposition home or self-care (01) ==
PROVIDERS: PCP Family Medicine; Visit Provider Internal Medicine
DX: N18.30 Chronic kidney disease, stage 3 unspecified (principal)
CPT/HCPCS: 36415; 80069